=== PATIENT | female | born 1985 | race Caucasian/White ===

== ENCOUNTER 2017-12-03 18:22 | Emergency (ER) | payer MEDICAID ==
[~2017-12-03] VITALS: Ht 157.5 cm; Wt 84.8 kg
[~2017-12-03 18:22] MED LIST: ALBU0.084; CEPH-91
[2017-12-03] MEDS ORDERED: MORPHINE SULFATE 8mg/ml INJ SDV IV ONE (21:00)
[2017-12-03] MEDS ORDERED: ONDANSETRON HCL 4 MG/2 ML VIAL IV ONE (21:30)
[2017-12-03] MEDS ORDERED: ETOMIDATE (2MG/ML) 20ML VIAL IV ONE ×2 (22:44→23:45)
[2017-12-03 23:30] VITALS: BP 114/82
== END 2017-12-04 00:55 | disposition home or self-care (01) ==
LOC: ER 18:22
DX: S42.402A Unspecified fracture of lower end of left humerus, initial encounter for closed fracture (principal); S63.015A Dislocation of distal radioulnar joint of left wrist, initial encounter; J45.909 Unspecified asthma, uncomplicated; I10 Essential (primary) hypertension; Z88.5 Allergy status to narcotic agent; Z88.8 Allergy status to other drugs, medicaments and biological substances; Z79.2 Long term (current) use of antibiotics; Z79.899 Other long term (current) drug therapy; V00.121A Fall from non-in-line roller-skates, initial encounter; Y93.51 Activity, roller skating (inline) and skateboarding; Y99.8 Other external cause status; Y92.89 Other specified places as the place of occurrence of the external cause
CPT/HCPCS: 24600; 73070; 73080; 96374; 96375; 99285; J2270; J2405

== ENCOUNTER 2021-08-04 15:27 | Emergency (ER) | payer MEDICAID ==
[~2021-08-04] VITALS: Ht 157.5 cm; Wt 95.3 kg
[2021-08-04 16:59] VITALS: BP 116/71
== END 2021-08-04 18:19 | disposition home or self-care (01) ==
LOC: ER 15:27
DX: S62.001A Unspecified fracture of navicular [scaphoid] bone of right wrist, initial encounter for closed fracture (principal); S62.111A Displaced fracture of triquetrum [cuneiform] bone, right wrist, initial encounter for closed fracture; I10 Essential (primary) hypertension; J45.909 Unspecified asthma, uncomplicated; Z79.899 Other long term (current) drug therapy; Z88.5 Allergy status to narcotic agent; Z88.8 Allergy status to other drugs, medicaments and biological substances; W18.39XA Other fall on same level, initial encounter; Y93.89 Activity, other specified; Y92.89 Other specified places as the place of occurrence of the external cause; Y99.8 Other external cause status
CPT/HCPCS: 29125; 73110

== ENCOUNTER 2022-06-30 07:47 | Emergency (ER) | payer MEDICAID ==
[~2022-06-30] VITALS: Ht 157.5 cm; Wt 102.0 kg
[2022-06-30 08:46] VITALS: BP 100/75
[2022-06-30] MEDS ORDERED: IPRATROPIUM BROM 0.5 MG/2.5ML INH SOL NEB ONE (09:15)
[2022-06-30] MEDS ORDERED: ALBUTEROL SULF 2.5 MG/0.5ML(0.5%) NEB SOLN NEB ONE (09:15)
[2022-06-30] MEDS ORDERED: cefTRIAXone SOD 1,000 MG VL IM ONE (09:15)
[2022-06-30] MEDS ORDERED: methylPREDNISolone SOD SUCC 125 MG/2 ML VL IM ONE (09:15)
[2022-06-30] MEDS ORDERED: PRED20TA2 PO (09:55)
[2022-06-30] MEDS ORDERED: ALBU108A5 IN (09:55)
== END 2022-06-30 10:11 | disposition home or self-care (01) ==
LOC: ER 07:47
DX: J45.901 Unspecified asthma with (acute) exacerbation (principal); J02.9 Acute pharyngitis, unspecified; I10 Essential (primary) hypertension
CPT/HCPCS: 94640; 96372; 99284; J0696; J2930; J7644

== ENCOUNTER 2022-07-28 03:10 | Emergency (ER) | payer MEDICAID ==
[~2022-07-28] VITALS: Ht 157.5 cm; Wt 98.0 kg
[~2022-07-28 03:10] MED LIST changes: +ALBU108A5 IN; +PRED20TA2 PO
[2022-07-28] MEDS ORDERED: HYDROmorphone HCL 2 MG/ML VL/or syr IV ONE ×2 (05:15→08:15)
[2022-07-28] MEDS ORDERED: SODIUM CHLORIDE 0.9% 1,000 ML IV ONE (05:15)
[2022-07-28] MEDS ORDERED: ONDANSETRON HCL 4 MG/2 ML VIAL IV ONE (05:15)
[2022-07-28] MEDS ORDERED: HYDR-4798 PO (06:50)
[2022-07-28] MEDS ORDERED: ONDA-144 PO (06:50)
[2022-07-28 08:44] VITALS: BP 112/75
== END 2022-07-28 08:59 | disposition home or self-care (01) ==
LOC: EDUNIT# 03:10 → EDBD 03:10 → ER 03:10
DX: S42.301A Unspecified fracture of shaft of humerus, right arm, initial encounter for closed fracture (principal); Z88.5 Allergy status to narcotic agent; Z79.899 Other long term (current) drug therapy; Z98.890 Other specified postprocedural states; V89.2XXA Person injured in unspecified motor-vehicle accident, traffic, initial encounter; Y93.89 Activity, other specified; Y92.89 Other specified places as the place of occurrence of the external cause; Y99.8 Other external cause status
CPT/HCPCS: 29125; 70450; 71250; 72125; 73030; 73060; 74176; 96361; 96374; 96375; 96376; 99285; J1170; J2405; J7030

== ENCOUNTER 2024-05-28 15:03 | Emergency (ER) | payer MEDICAID ==
[~2024-05-28] VITALS: Ht 157.5 cm; Wt 85.0 kg
[~2024-05-28 15:03] MED LIST changes: +HYDR-4798 PO; +ONDA-144 PO
[2024-05-28 17:08] LABS: Urine Amorphous Crystal FEW /hpf (None Seen); Urine Bacteria MOD /hpf (None Seen); Urine Blood Negative /uL (Negative); Urine Clarity Clear (Clear); Urine Color Light-Yellow (Yellow); Urine Mucus FEW (None Seen); Urine Protein, UAD TRACE (Negative); Urine Specific Gravity 1.009 (1.001-1.035); Urine Urobilinogen Normal (Negative); Urine WBC 21 /hpf (0 - 5); Urine pH 6.5 (5.0-9.0)
[2024-05-28 17:24] LABS: Basophils # (auto) 0.1 10 ^3/uL (0-0.2); Basophils % (auto) 0.8 % (0.0-2.0); Eosinophils # (auto) 0.2 10 ^3/uL (0-0.8); Eosinophils % (auto) 2.1 % (0.0-7.0); Hematocrit 38.7 % (36.0-46.0); Hemoglobin 12.9 g/dL (12.2-16.2); Lymphocytes # (auto) 1.8 10 ^3/uL (0.4-5.4); Lymphocytes % (auto) 18.8 % (10.0-50.0); Mean Corpuscular Hemoglobin 25.3 pg (28.0-32.0); Mean Corpuscular Hgb Conc. 33.2 g/dL (32.0-36.0); Mean Corpuscular Volume 76.3 fL (80.0-100.0); Monocytes # (auto) 0.5 10 ^3/uL (0-1.3); Monocytes % (auto) 5.5 % (0.0-12.0); Neutrophils # (auto) 7.1 10 ^3/uL (1.6-8.6); Neutrophils % (auto) 72.8 % (37.0-80.0); Platelet Count (auto) 399 10^3/uL (140-450); Red Blood Cells 5.08 10^6/uL (4.0-5.20); Red Cell Distribution Width 16.8 % (11.8-14.3); White Blood Cell 9.8 10^3/uL (4.4-10.8)
[2024-05-28 17:46] LABS: Alanine Aminotransferase 14 U/L (7-40); Albumin 4.8 g/dL (3.2-4.8); Alkaline Phosphatase 158 U/L (46-116); Anion Gap 9 (5-15); Aspartate Aminotransferase 13 U/L (13-40); BUN/Creatinine Ratio 8.7 (10.0-20.0); Blood Urea Nitrogen 9 mg/dL (9-23); Calcium 10.7 mg/dL (8.7-10.4); Carbon Dioxide 28 mmol/L (20-31); Chloride 103 mmol/L (98-107); Glucose 97 mg/dL (74-106); Potassium 4.3 mmol/L (3.5-5.1); Sodium 140 mmol/L (136-145)
[2024-05-28 17:47] LABS: Bilirubin, Total 0.6 mg/dL (0.2-1.0)
[2024-05-28] MEDS: SODIUM CHLORIDE 0.9% 1,000 ML IV ONE (18:15)
[2024-05-28] MEDS: KETOROLAC TROMETH 30 MG/ML 1ML VIAL IV ONE (18:16)
[2024-05-28 18:23] VITALS: BP 106/80; PULSE 99; RESP 20; TEMP 97.9; O2SAT 96
[2024-05-28] MEDS ORDERED: NITR-87 PO (19:10)
[2024-05-28] MEDS: cefTRIAXone 1GM/50ML D5W 50 ML IV ONE (19:34)
== END 2024-05-28 19:53 | disposition home or self-care (01) ==
LOC: ER 15:03
DX: N39.0 Urinary tract infection, site not specified (principal); Z85.9 Personal history of malignant neoplasm, unspecified; Z88.5 Allergy status to narcotic agent; Z88.8 Allergy status to other drugs, medicaments and biological substances; Z79.899 Other long term (current) drug therapy; Z98.890 Other specified postprocedural states
CPT/HCPCS: 36415; 74176; 80053; 81001; 85025; 96361; 96374; 96375; 99285; J0696; J1885; J7030

== ENCOUNTER 2024-06-14 07:58 | Emergency (ER) | payer MEDICAID ==
[~2024-06-14] VITALS: Ht 157.5 cm; Wt 87.1 kg
[~2024-06-14 07:58] MED LIST changes: +NITR-87 PO
[2024-06-14 08:16] VITALS: TEMP 97.1
[2024-06-14 08:17] VITALS: BP 116/65; PULSE 91; RESP 16; O2SAT 98
[2024-06-14 09:20] LABS: Vaginal Bacteria Moderate
[2024-06-14 09:21] LABS: Vaginal Epithelial Cells Few
[2024-06-14 09:22] LABS: Vaginal Clue Cells Few
[2024-06-14 09:27] LABS: Vaginal Trichomonas Not Present
[2024-06-14 09:29] LABS: Urine Blood Negative /uL (Negative); Urine Clarity Clear (Clear); Urine Color Light-Yellow (Yellow); Urine Protein, UAD Negative (Negative); Urine Specific Gravity 1.006 (1.001-1.035); Urine Urobilinogen Normal (Negative); Urine pH 6.5 (5.0-9.0)
[2024-06-14 09:54] LABS: Urine WBC 20 /hpf (0 - 5)
[2024-06-14 09:55] LABS: Urine Bacteria MODERATE /hpf (None Seen)
[2024-06-14] MEDS ORDERED: BACDST PO (10:06)
[2024-06-14] MEDS ORDERED: METR-344 PO (10:06)
[2024-06-14] MEDS ORDERED: HYDR25SU21 PR (10:06)
== END 2024-06-14 10:15 | disposition home or self-care (01) ==
LOC: ER 07:58
DX: N39.0 Urinary tract infection, site not specified (principal); N76.0 Acute vaginitis; B96.89 Other specified bacterial agents as the cause of diseases classified elsewhere; Z88.5 Allergy status to narcotic agent; Z79.899 Other long term (current) drug therapy
CPT/HCPCS: 81001; 87086; 87210

== ENCOUNTER 2024-06-19 16:28 | Emergency (ER) | payer MEDICAID ==
[~2024-06-19] VITALS: Ht 157.5 cm; Wt 85.3 kg
[~2024-06-19 16:28] MED LIST changes: +BACDST PO; +HYDR25SU21 PR; +METR-344 PO
[2024-06-19 18:41] LABS: Basophils # (auto) 0.1 10 ^3/uL (0-0.2); Eosinophils # (auto) 0.4 10 ^3/uL (0-0.8); Hematocrit 34.9 % (36.0-46.0); Hemoglobin 11.5 g/dL (12.2-16.2); Lymphocytes # (auto) 1.6 10 ^3/uL (0.4-5.4); Lymphocytes % (auto) 15.7 % (10.0-50.0); Mean Corpuscular Hemoglobin 25.2 pg (28.0-32.0); Mean Corpuscular Volume 76.5 fL (80.0-100.0); Monocytes # (auto) 0.7 10 ^3/uL (0-1.3); Monocytes % (auto) 6.6 % (0.0-12.0); Neutrophils # (auto) 7.2 10 ^3/uL (1.6-8.6); Neutrophils % (auto) 72.7 % (37.0-80.0); Nucleated Red Blood Cells % 0.1 %; Platelet Count (auto) 388 10^3/uL (140-450); Red Blood Cells 4.57 10^6/uL (4.0-5.20); Red Cell Distribution Width 16.7 % (11.8-14.3); White Blood Cell 9.9 10^3/uL (4.4-10.8)
[2024-06-19 19:01] LABS: Urine Bacteria FEW /hpf (None Seen); Urine Blood Negative /uL (Negative); Urine Clarity Clear (Clear); Urine Color Light-Yellow (Yellow); Urine Protein, UAD Negative (Negative); Urine Specific Gravity 1.007 (1.001-1.035); Urine Urobilinogen Normal (Negative); Urine WBC 4 /hpf (0 - 5)
[2024-06-19 19:21] LABS: Albumin 4.4 g/dL (3.2-4.8); Alkaline Phosphatase 130 U/L (46-116); Anion Gap 8 (5-15); Aspartate Aminotransferase 17 U/L (13-40); BUN/Creatinine Ratio 6.6 (10.0-20.0); Bilirubin, Total 0.2 mg/dL (0.2-1.0); Blood Urea Nitrogen 7 mg/dL (9-23); Calcium 9.8 mg/dL (8.7-10.4); Carbon Dioxide 26 mmol/L (20-31); Chloride 102 mmol/L (98-107); Glucose 115 mg/dL (74-106); Potassium 3.7 mmol/L (3.5-5.1); Sodium 136 mmol/L (136-145)
[2024-06-19 19:22] LABS: Total Protein 7.6 g/dL (5.7-8.2)
[2024-06-19 19:28] LABS: Alanine Aminotransferase < 9 U/L (7-40)
[2024-06-19 20:00] VITALS: BP 111/65; PULSE 92; RESP 16; O2SAT 97
[2024-06-19 20:18] LABS: Lipase 36 U/L (12-53)
[2024-06-19] MEDS: IOHEXOL 300 MG/ML 100ML BOTTLE IJ ONE (20:35)
[2024-06-19] MEDS ORDERED: CEPH500C PO (22:16)
[2024-06-19 22:39] VITALS: PULSE 94; RESP 18; O2SAT 99
== END 2024-06-19 22:45 | disposition home or self-care (01) ==
LOC: ER 16:28
DX: N39.0 Urinary tract infection, site not specified (principal); R10.9 Unspecified abdominal pain; Z90.710 Acquired absence of both cervix and uterus; Z88.8 Allergy status to other drugs, medicaments and biological substances; Z79.899 Other long term (current) drug therapy
CPT/HCPCS: 36415; 74177; 80053; 81001; 83605; 83690; 84484; 85025; 99285; Q9967

== ENCOUNTER 2024-09-16 15:08 | Inpatient (IN) | payer MEDICAID ==
[~2024-09-16] VITALS: Ht 157.5 cm; Wt 87.4 kg
[2024-09-16] MEDS: PIPERACILLIN-TAZOB 3.375GM 100 ML IV ONE ×2 (03:00→18:37)
[~2024-09-16 15:08] MED LIST changes: +CEPH500C PO
[2024-09-16 15:31] VITALS: PULSE 115; RESP 14; O2SAT 98
[2024-09-16] MEDS: MORPHINE SULFATE 4 MG/ML SYR/VIAL IV ONE ×2 (15:45→19:36)
--- NOTE | 2024-09-16 16:25 | ED.PDOC ---
HPI Comments 39y F who presents to the ED via EMS for chief complaint of chest pain. Pt states she was at [facility] for UTI and sepsis and hospitalized and treated for ESBL.pt states she was also having chest pain and told staff but states she was ignored and left AMA 2 days. Pt states she has been having chest pain since for the past 2 days, constant, substernal, pressure, stabbing and sharp in nature, with associated exacerbation of pain with movement and no relieving factors. Pt states she has been having nausea, vomiting, and diarrhea, but otherwise denies any other symptoms. Pt states she has history of cervical cancer with mets to the liver and lymph nodes. Pt otherwise was noted to be short of breath and was placed on 4 L via nc and 02 sat will to 99% but in the ED, has noted heart rate of 117 with all other vitals in normal range. Pt in the ED, appears distressed. Pt otherwise denies any other symptoms at this time. Chief Complaint: chest pain Time Seen by MD: 16:23 Primary Care Provider: ABIMAEL Reviewed Notes: Nurses Notes, Cooler Conveyor Loader Notes Allergies: Coded Allergies: Acetaminophen (Verified Allergy, Mild, 07/28/22) Codeine (Verified Allergy, Mild, 07/28/22) Hydrocodone (Verified Allergy, Mild, 07/28/22) Pseudoephedrine (Verified Allergy, Unknown, 06/19/24) Home Meds Active Scripts Cephalexin Monohydrate (Cephalexin) 500 Mg Cap, 500 MG PO Q6HR for 7 Days, #28 CAP Prov:ERIN BARRIENTOS DO 06/19/24 Hydrocortisone Acetate (Anusol-Hc) 25 Mg Sup, 1 SUPP IN BID, #14 SUPP Prov:BERTHA AVINA 06/14/24 Sulfamethoxazole W/Trimethopri (Bactrim Ds Tablet) 1 Tab Tb, 1 TAB PO BID for 7 Days, #14 TAB Prov:BERTHA AVINA 06/14/24 Metronidazole (Flagyl) 500 Mg Tab, 1 TAB PO BID, #14 TAB Prov:BERTHA AVINA 06/14/24 Nitrofurantoin Monohydrate Mac (Macrobid) 100 Mg Cap, 100 MG PO BID for 7 Days, #14 CAP Prov:FELICIANO PULIDO 05/28/24 Ondansetron (Zofran) 4 Mg Tab, 1 TAB PO Q8HR PRN, #15 TAB 0 Refills Prov:SHARON ELKINS 07/28/22 Hydrocodone-Acetaminophen (Hydrocodone Bitartrate/AC 10-325 mg) 1 Tab Tab, 1 TAB PO Q4HP PRN, #15 TAB 0 Refills Prov:SHARON ELKINS 07/28/22 Prednisone (Prednisone) 20 Mg Tab, 60 MG PO DAILY, #15 MG Prov:BERTHA AVINA 06/30/22 Albuterol Sulfate (Albuterol Sulfate Hfa) 108 Mcg/Act Aer, 108 MCG IN QID, #90 AER Prov:BERTHA AVINA 06/30/22 Reported Medications Cephalexin (Keflex) 250 Mg Cap 04/05/11 Albuterol Sulfate (Albuterol Sulfate) 0.083 % Neb 10/23/10 Information Source: Patient Mode of Arrival: EMS Brought in by: EMS Past Medical History PAST MEDICAL HISTORY: Cancer, UTI'S 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 Family History Family History: Reviewed,noncontributory to illness Social History Smoker: Non-Smoker Alcohol: Occasionally Drugs: Denies Drug Use Lives In: Home Constitutional: denies: chills, diaphoresis, fatigue, fever, malaise, sweats, weakness, others EENTM: denies: blurred vision, double vision, ear bleeding, ear discharge, ear drainage, ear pain, ear ringing, eye pain, eye redness, hearing loss, mouth pain, mouth swelling, nasal discharge, nose bleeding, nose congestion, nose pain, photophobia, tearing, throat pain, throat swelling, voice changes, others Respiratory: reports: shortness of breath; denies: cough, hemoptysis, orthopnea, SOB at rest, SOB with excertion, stridor, wheezing, others Cardiovascular: reports: chest pain; denies: dizzy spells, diaphoresis, Dyspnea on exertion, edema, irregular heart beat, left arm pain, lightheadedness, palpitations, PND, syncope, others Gastrointestinal: denies: abdomen distended, abdominal pain, blood streaked bowels, constipated, diarrhea, dysphagia, difficulty swallowing, hematemesis, melena, nausea, poor appetite, poor fluid intake, rectal bleeding, rectal pain, vomiting, others Genitourinary: denies: abnormal vagina bleeding, burning, dyspareunia, dysuria, flank pain, frequency, hematuria, incontinence, pain, , vagina discharge, urgency, others Neurological: denies: dizziness, fainting, headache, left sided numbness, left sided weakness, numbness, paresthesia, pre-existing deficit, right sided numbness, right sided weakness, seizure, speech problems, tingling, tremors, weakness, others Musculoskeletal: denies: back pain, gout, joint pain, joint swelling, muscle pain, muscle stiffness, neck pain, others Integumetry: denies: bruises, change in color, change in hair/nails, dryness, laceration, lesions, lumps, rash, wounds, others Allergic/Immunocompromised: denies: Difficulty Healing, Frequent Infections, Hives, Itching, others Hematologic/Lymphatic: denies: anemia, blood clots, easy bleeding, easy bruising, swollen glands, others Endocrine: denies: excessive hunger, excessive sweating, excessive thirst, excessive urination, flushing, intolerance to cold, intolerance to heat, unexplained weight gain, unexplained weight loss, others Psychiatric: denies: anxiety, bipolar disorder, depression, hopeless, panic disorder, schizophrenia, sleepless, suicidal, others All Other Systems: Reviewed and Negative Physical Exam General Appearance: Moderate Distress, Normal HEENT: Normal ENT Inspection, Pharynx Normal, TMs Normal Neck: Full Range of Motion, Non-Tender, Normal, Normal Inspection Respiratory: No Accessory Muscle Use, Respiratory Distress Cardiovascular: Tachycardia Breast Exam: Deferred Gastrointestinal: No Organomegaly, Non Tender, No Pulsatile Mass, Normal Bowel Sounds, Soft Genitalia: Deferred Pelvic: Deferred Rectal: Deferred Extremities: No calf tenderness, Normal capillary refill, Normal inspection, Normal range of motion, Non-tender, No pedal edema Musculoskeletal : Apperance: Normal Neurologic: Alert, foamite mixer II-XII nml as Tested, No Motor Deficits, Normal Affect, Normal Mood, No Sensory Deficits Cerebellar Function: Normal Reflexes: Normal Skin: Dry, Normal Color, Warm Lymphatic: No Adenopathy Was a procedure done? Was a procedure done?: No CP Differential Dx Differential Diagnosis: A-fib, A-Flutter, Angina, Anxiety / Panic Attack, Atrial Dysrhythmia, Heart Failure, PVC's Differential Diagnosis: Angina, Chest Wall Pain, Costochondritis X-Ray, Labs, Meds, VS Vital Signs Date Time Temp Pulse Resp B/P (MAP) Pulse Ox O2 Delivery O2 Flow Rate FiO2 09/16/24 17:48 98 09/16/24 17:20 102 24 115/47 09/16/24 16:50 115 14 93/55 09/16/24 15:31 98.3 115 14 93/55 (68) 99 98.3 09/16/24 15:31 115 14 98 Nasal Cannula* 4 36 09/16/24 15:14 122 09/16/24 15:10 98.2 114 15 106/67 (80) 98 Lab Test 09/16/24 16:12 Range/Units White Blood Count 23.0 H 4.4-10.8 10^3/uL Red Blood Count 3.78 L 4.0-5.20 10^6/uL Hemoglobin 8.1 L 12.2-16.2 g/dL Hematocrit 26.4 L 36.0-46.0 % Mean Corpuscular Volume 69.9 L 80.0-100.0 fL Mean Corpuscular Hemoglobin 21.3 L 28.0-32.0 pg Mean Corpuscular Hemoglobin Concent 30.5 L 32.0-36.0 g/dL Red Cell Distribution Width 19.3 H 11.8-14.3 % Platelet Count 720 H 140-450 10^3/uL Mean Platelet Volume 7.6 6.9-10.8 fL Neutrophils (%) (Auto) 87.9 H 37.0-80.0 % Lymphocytes (%) (Auto) 5.1 L 10.0-50.0 % Monocytes (%) (Auto) 6.4 0.0-12.0 % Eosinophils (%) (Auto) 0.2 0.0-7.0 % Basophils (%) (Auto) 0.4 0.0-2.0 % Neutrophils # (Auto) 20.2 H 1.6-8.6 10 ^3/uL Lymphocytes # (Auto) 1.2 0.4-5.4 10 ^3/uL Monocytes # (Auto) 1.5 H 0-1.3 10 ^3/uL Eosinophils # (Auto) 0 0-0.8 10 ^3/uL Basophils # (Auto) 0.1 0-0.2 10 ^3/uL Nucleated Red Blood Cells 0.0 % Prothrombin Time 13.2 H 9.3-11.8 sec Prothrombin Time INR 1.28 H 0.9-1.15 D-Dimer, Quantitative 2.07 H 0.0-0.49 mg/L FEU Sodium Level 134 L 136-145 mmol/L Potassium Level 4.5 3.5-5.1 mmol/L Chloride Level 94 L 98-107 mmol/L Carbon Dioxide Level 30 20-31 mmol/L Anion Gap 10 5-15 Blood Urea Nitrogen 7 L 9-23 mg/dL Creatinine 0.45 L 0.550-1.02 mg/dL Glomerular Filtration Rate Calc 127 >90 mL/min BUN/Creatinine Ratio 15.6 10.0-20.0 Serum Glucose 112 H 74-106 mg/dL Calcium Level 9.3 8.7-10.4 mg/dL Magnesium Level 1.9 1.6-2.6 mg/dL Total Bilirubin 0.6 0.2-1.0 mg/dL Aspartate Amino Transferase (AST) 71 H 13-40 U/L Alanine Aminotransferase (ALT) 31 7-40 U/L Alkaline Phosphatase 356 H 46-116 U/L Troponin I High Sensitivity < 3 L </=34 ng/L B-Type Natriuretic Peptide 33.79 0-100 pg/mL Total Protein 5.9 5.7-8.2 g/dL Albumin 3.1 L 3.2-4.8 g/dL Current Medications Medications (Trade) Dose Ordered Sig/Cathy Route Start Time Stop Time Status Last Admin Sodium Chloride 1,000 ml @ 1,000 mls/hr Q1H ONCE IV 09/16/24 15:45 09/16/24 16:44 DC 09/16/24 16:50 Morphine Sulfate 4 mg ONCE ONCE IV 09/16/24 15:45 09/16/24 15:48 DC 09/16/24 16:50 Ondansetron HCl (Zofran) 4 mg ONCE ONCE IV 09/16/24 15:45 09/16/24 15:48 DC 09/16/24 16:47 Time of 1ST Reevaluation: 17:00 Reevaluation 1ST: Unchanged Patient Education/Counseling: Diagnosis, Treatment Family Education/Counseling: No Family Present Sepsis Sepsis Reasesment Focused Exam Sepsis focused exam: focus exam completed, time: (9960) Departure 1 Departure Time of Disposition: 18:29 Impression: Primary Impression: Pneumonia Additional Impressions: UTI (urinary tract infection) Metastasis from cervical cancer Disposition: ADMITTED INPATIENT Admit to: Med Surg Condition: Guarded Discharged With: Self Critical Care Note Critical Care Time?: Yes (45 min-critical care time only) Critical care comment: Total critical care time: Approximately 36 minutes Due to a high probability of clinically significant, life threatening deterioration, the patient required my highest level of preparedness to intervene emergently and I personally spent this critical care time directly and personally managing the patient. This critical care time included obtaining a history; examining the patient; pulse oximetry; ordering and review of studies; arranging urgent treatment with development of a management plan; evaluation of patient's response to treatment; frequent reassessment; and, discussions with other providers. This critical care time was performed to assess and manage the high probability of imminent, life-threatening deterioration that could result in multi-organ failure. It was exclusive of separately billable procedures and treating other patients. Stability Stability form required: No Heart Score Heart Score: Heart Score Response (Comments) Value History Slightly Suspicious 0 EKG Repolarization Disturb 1 Age <45 0 Risk Factors No known risk factors 0 Troponin Normal limit 0 Total 1 I personally scribed for KATARZYNA SORENSEN MD ([email or web address]) on 09/16/24 at 16:25. Electronically submitted by Jorge RUBIO). KATARZYNA SORENSEN MD Sep 16, 2024 16:25
[2024-09-16 16:27] LABS: Basophils # (auto) 0.1 10 ^3/uL (0-0.2); Basophils % (auto) 0.4 % (0.0-2.0); Eosinophils # (auto) 0 10 ^3/uL (0-0.8); Eosinophils % (auto) 0.2 % (0.0-7.0); Hematocrit 26.4 % (36.0-46.0); Hemoglobin 8.1 g/dL (12.2-16.2); Lymphocytes # (auto) 1.2 10 ^3/uL (0.4-5.4); Lymphocytes % (auto) 5.1 % (10.0-50.0); Mean Corpuscular Hemoglobin 21.3 pg (28.0-32.0); Mean Corpuscular Hgb Conc. 30.5 g/dL (32.0-36.0); Mean Corpuscular Volume 69.9 fL (80.0-100.0); Monocytes # (auto) 1.5 10 ^3/uL (0-1.3); Monocytes % (auto) 6.4 % (0.0-12.0); Neutrophils # (auto) 20.2 10 ^3/uL (1.6-8.6); Neutrophils % (auto) 87.9 % (37.0-80.0); Platelet Count (auto) 720 10^3/uL (140-450); Red Blood Cells 3.78 10^6/uL (4.0-5.20); Red Cell Distribution Width 19.3 % (11.8-14.3)
[2024-09-16 16:44] LABS: Alanine Aminotransferase 31 U/L (7-40); Anion Gap 10 (5-15); BUN/Creatinine Ratio 15.6 (10.0-20.0); Calcium 9.3 mg/dL (8.7-10.4); Carbon Dioxide 30 mmol/L (20-31); Magnesium 1.9 mg/dL (1.6-2.6); Potassium 4.5 mmol/L (3.5-5.1)
[2024-09-16 16:45] LABS: Bilirubin, Total 0.6 mg/dL (0.2-1.0); Total Protein 5.9 g/dL (5.7-8.2)
[2024-09-16] MEDS: ONDANSETRON HCL 4 MG/2 ML VIAL IV ONE ×2 (16:47→19:35)
[2024-09-16] MEDS: SODIUM CHLORIDE 0.9% 1,000 ML IV ONE (16:50)
[2024-09-16 16:51] LABS: Albumin 3.1 g/dL (3.2-4.8); Alkaline Phosphatase 356 U/L (46-116); Aspartate Aminotransferase 71 U/L (13-40); Blood Urea Nitrogen 7 mg/dL (9-23); Chloride 94 mmol/L (98-107); Glucose 112 mg/dL (74-106); Sodium 134 mmol/L (136-145)
[2024-09-16 17:04] LABS: INR 1.28 (0.9-1.15); Prothrombin Time 13.2 sec (9.3-11.8)
[2024-09-16] MEDS: IOHEXOL 350 MG/ML 100ML IJ ONE (17:12)
--- NOTE | 2024-09-16 17:15 | ECG ---
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
--- NOTE | 2024-09-16 17:23 | DVH ---
EXAM: XR Chest, 1 View CLINICAL INDICATION: chest pain TECHNIQUE: Frontal view of the chest. COMPARISON: RHUM on DOS: 07/28/22 FINDINGS: LUNGS AND PLEURAL SPACES: Unremarkable. No consolidation. No pneumothorax. HEART: Unremarkable. No cardiomegaly. MEDIASTINUM: Unremarkable. Normal mediastinal contour. BONES/JOINTS: Unremarkable. No acute fracture. OTHER FINDINGS: . . IMPRESSION: No acute cardiopulmonary process.
--- NOTE | 2024-09-16 17:47 | DVH ---
EXAM: CT CT ANGIO CHEST CONTRAST History: chest pain / SOB history of metastatic uterine / ovarian CA Comparison Study: None available TECHNIQUE: A digital photocomposing machine operator image was obtained. During the uneventful, intravenous administration of c ontrast material, multislice data acquisition was obtained through the chest. 3-D postprocessing is performed by technologist including MIP imaging Radiation Dose : CTDI vol 13.88 mGy, DLP 484.33 mGy*cm. Findings: Lungs: Numerous pulmonary nodules throughout both lungs, measuring up to 0.7 cm in the superior right lower lobe. Not seen on 07/28/2022. Pleura: Trace bilateral pleural effusions. Heart/Great vessels: The visualized heart is unremarkable. No cardiomegaly or pericardial effusion. N o pulmonary embolism, aneurysm, or dissection. Mediastinum: Bilateral prominent hilar nodes. Soft tissues/Bones: Mild multilevel degenerative changes of the thoracic spine. The partially visualized upper abdomen is within normal limits. Impression: 1. No evidence of pulmonary embolism, aortic aneurysm, or dissection. 2. Numerous bilateral pulmonary nodules, new from 07/28/2022, consistent with history of metastatic di sease. 3. Bilateral prominent hilar nodes nonspecific may be reactive versus metastatic.
[2024-09-16 20:14] VITALS: PULSE 96; RESP 17; O2SAT 98
--- NOTE | 2024-09-16 21:51 | DVHHPRES ---
History of Present Illness Resident Creating Document: MITCHELL HOOD RESDIENT History of Present Illness This is a 39-year-old female with past medical history of asthma, cervical cancer (status post surgery in 2022 with hysterectomy and removal of urinary bladder), idiopathic intracranial hypertension, uses oxygen for told sleep apnea since 5 months (but has not performed sleep study) came to the hospital due to chest pain. The patient had admitted at [facility] 1 week back due to palpitation and during admission it was found that she had ESBL UTI and was treated for with antibiotic for 5 days, but the patient left AMA the hospital since she had chest pain and shortness of bed but she was not properly taken care for the mentioned problems. She has centralized epigastric and centralized chest pain which radiated to right upper quadrant. Pain is constant, pressure- like, stabbing in nature, increased with mobility and taking deep breaths and relieves with pain killer. She also reports palpitation, shortness of breath, fever, occasional nausea and vomiting, generalized weakness and dizziness. Patient denies diarrhea, dysuria, visual deficits, or any recent sensory or motor deficits. PMHx: Asthma, cervical cancer (status post surgery in 2022 with hysterectomy and removal of urinary bladder), idiopathic intracranial hypertension and uses oxygen for told sleep apnea since 5 months (but has not performed sleep study) PSHx: Cervical cancer surgery (status post hysterectomy and urine bladder removal) Social history: Patient lives with family at home, Former smoker, former amphetamine user, former alcohol abuser, denies current drug use Home medication: Iron pill and vitamin supplements Allergic history: Reviewed. Review of Systems Review of Systems General: Reports generalized weakness and dizziness HEENT: No headaches, visiual changes, hearing loss, tinnitus, nasal congestion and discharge, and sore throat. Cardiovascular: Reports chest pain and palpitation Respiratory: Reports cough and shortness of breaths Gastrointestinal: Reports occasional nausea Genitourinary: No dysuria, hematuria, discharge, frequency, urgency, nocturia, incontinence, and urinary retention. Endocrine: No heat or cold intolerance, polydipsia, polyuria, and polyphagia. Neurological: No dizziness, extremity weakness and numbness, tremors, gait disturbance, seizures, and memory impairment. Psychiatric: Denies depression, anxiety,or insomnia. Musculoskeletal: Denies neck pain, stiffness and swelling, back pain, muscle weakness, joint pain, stiffness, swelling, or limited range of motion. Skin: No rashes, itching, skin lesion, changes in hair, nail, skin texture and breast. Hematologic/Lymphatic: Denies easy bruising, bleeding tendencies, or lymph node enlargement. Allergies: Coded Allergies: Pseudoephedrine (Verified Allergy, Unknown, 06/19/24) Exam Vital Signs Vital Signs Date Time Temp Pulse Resp B/P (MAP) Pulse Ox O2 Delivery O2 Flow Rate FiO2 09/16/24 20:14 96 17 98 Nasal Cannula* 4 36 09/16/24 20:06 100/59 09/16/24 19:30 98.9 98.9 Exam General Appearance: Alert, Oriented X3, Cooperative, No acute distress HEENT: Atraumatic, PERRLA, EOMI, Mucous membrane moist/pink Respiratory: Bilateral rhonchi Cardiovascular: Regular rate, Normal S1, Normal S2, No murmurs, no chest wall tenderness Abdominal: Epigastric tenderness Extremities: No clubbing, No cyanosis, No edema, Normal pulses, No tender ness/swelling Skin: No rashes, No breakdown, No significant lesion Neuro: Normal gait, Normal speech, Strength at 5/5 X4 ext, Normal tone, Sensation intact, Cranial nerves 3-12 NL, Reflexes 2+ Psych/Mental Status: Mental status NL, Mood NL Labs/Xrays Labs Test 09/16/24 19:11 09/16/24 18:33 09/16/24 16:12 Range/Units Lactic Acid Level 1.5 0.4-2.0 mmol/L Troponin I High Sensitivity < 3 L </=34 ng/L White Blood Count 23.0 H 4.4-10.8 10^3/uL Red Blood Count 3.78 L 4.0-5.20 10^6/uL Hemoglobin 8.1 L 12.2-16.2 g/dL Hematocrit 26.4 L 36.0-46.0 % Mean Corpuscular Volume 69.9 L 80.0-100.0 fL Mean Corpuscular Hemoglobin 21.3 L 28.0-32.0 pg Mean Corpuscular Hemoglobin Concent 30.5 L 32.0-36.0 g/dL Red Cell Distribution Width 19.3 H 11.8-14.3 % Platelet Count 720 H 140-450 10^3/uL Mean Platelet Volume 7.6 6.9-10.8 fL Neutrophils (%) (Auto) 87.9 H 37.0-80.0 % Lymphocytes (%) (Auto) 5.1 L 10.0-50.0 % Monocytes (%) (Auto) 6.4 0.0-12.0 % Eosinophils (%) (Auto) 0.2 0.0-7.0 % Basophils (%) (Auto) 0.4 0.0-2.0 % Neutrophils # (Auto) 20.2 H 1.6-8.6 10 ^3/uL Lymphocytes # (Auto) 1.2 0.4-5.4 10 ^3/uL Monocytes # (Auto) 1.5 H 0-1.3 10 ^3/uL Eosinophils # (Auto) 0 0-0.8 10 ^3/uL Basophils # (Auto) 0.1 0-0.2 10 ^3/uL Nucleated Red Blood Cells 0.0 % Prothrombin Time 13.2 H 9.3-11.8 sec Prothrombin Time INR 1.28 H 0.9-1.15 D-Dimer, Quantitative 2.07 H 0.0-0.49 mg/L FEU Sodium Level 134 L 136-145 mmol/L Potassium Level 4.5 3.5-5.1 mmol/L Chloride Level 94 L 98-107 mmol/L Carbon Dioxide Level 30 20-31 mmol/L Anion Gap 10 5-15 Blood Urea Nitrogen 7 L 9-23 mg/dL Creatinine 0.45 L 0.550-1.02 mg/dL Glomerular Filtration Rate Calc 127 >90 mL/min BUN/Creatinine Ratio 15.6 10.0-20.0 Serum Glucose 112 H 74-106 mg/dL Calcium Level 9.3 8.7-10.4 mg/dL Magnesium Level 1.9 1.6-2.6 mg/dL Total Bilirubin 0.6 0.2-1.0 mg/dL Aspartate Amino Transferase (AST) 71 H 13-40 U/L Alanine Aminotransferase (ALT) 31 7-40 U/L Alkaline Phosphatase 356 H 46-116 U/L B-Type Natriuretic Peptide 33.79 0-100 pg/mL Total Protein 5.9 5.7-8.2 g/dL Albumin 3.1 L 3.2-4.8 g/dL Assessment/Plan Assessment/Plan Acute hypoxic respiratory failure, likely due to pneumonia/asthma exacerbation /lung metastasis Sepsis, likely due to pneumonia Pneumonia, likely due to Gram-positive Gram-negative bacteria/viral Asthma exacerbation Chest x-ray shows reticulonodular infiltration CT angio shows bilateral numerous pulmonary nodule, maybe metastatic nodule Empiric antibiotics of Zosyn and doxycycline IV fluid Breathing treatment Methylprednisolone 40 mg daily History of cervical cancer, status post surgery Chest CT scan shows bilateral numerous pulmonary nodule, possible metastasis Abdominal CT scan shows, diffuse heterogeneity throughout the liver which may reflect metastatic disease, recommended IV contrast study Oncology consultation Ruled out pulmonary emboli D-dimer is raised at 20.7 CT angiogram shows no pulmonary emboli, and bilateral lower Doppler studies are normal Thrombocytosis, likely reactive Monitoring Moderate protein malnutrition Albumin is 3.1 Malnutrition consultation Mild hyponatremia, monitoring Transaminitis DIET: Cardiac diet DVT PROPHYLAXIS: Lovenox CODE STATUS: Goal of care discussed for more than 21 minutes, full code DISPOSITION: Telemetry Patient's status and paln discussed with the patient and the patient's sister on the phone. Case discussed with Dr. Rojas Plan discussed with: Patient, Other (RN) My Orders Orders - MITCHELL HOOD RESDIALTON Procedure Category Date Status Time Admit ADMIT 09/16/24 Verified 21:49 Nitroglycerin PHA 09/16/24 Verified Sublingual (Ntrostat 22:00 Oxygen By Nasal RT 09/16/24 Verified Cannula 21:49 Stat Ekg For Chest CHRISTEN 09/16/24 Verified Pain 21:49 Notify Of Changes CHRISTEN 09/16/24 Verified From Base 21:49 Mechanical Engineering Teacher For CHRISTEN 09/16/24 Verified 24 Hours 21:49 Morphine Sulfate PHA 09/16/24 Verified Injection 22:00 Date of Service: Sep 16, 2024 Billing Provider: JANY EASTON MD Common Visit Codes: [id number] INP/OBS CARE (HIGH) MITCHELL HOOD RESDIALTON Sep 16, 2024 21:51 JANY EASTON MD Sep 17, 2024 09:38
[2024-09-16] MEDS ORDERED: NITROGLYCERIN 0.4 MG SL TAB SL PRN (22:00)
[2024-09-16] MEDS ORDERED: MORPHINE SULFATE INJ 2 MG/ml SYRG IV PRN (22:00)
[2024-09-16] MEDS: HYDROcodone-ACET 5/325MG TAB PO PRN (22:48)
[2024-09-16] MEDS: DOXYCYCLINE 100MG/100ML 100 ML IV ONE (22:53)
[2024-09-16 22:56] LABS: Beta HCG, Quantitative 2.3 mIU/mL (1.5-4.2)
[2024-09-16 23:00] LABS: Thyroid Stimulating Hormone 2.34 uIU/mL (0.55-4.78)
--- NOTE | 2024-09-16 23:38 | DVH ---
Exam: CT CT AB PEL WO CON-NO ORAL OR IV History: Hepatic metastasis Comparison Study: CT CT AB PEL WO CON-NO ORAL OR IV on DOS: 05/28/24 Technique: Multidetector spiral CT of the abdomen was performed from lung bases to pubic symphysis. Imaging was performed without IV contrast. Axial, coronal and sagittal multiplanar reformats were ob tained from the axial data set by the technologist. Radiation Dose : 1. Abdomen/Pelvis: CTDIvol 21 mGy, DLP 1211.45 mGy*cm. Findings: Evaluation of solid organs is limited due to lack of intravenous contrast use. Lung Bases: Please refer to separately dictated CT from today. Liver: Diffuse heterogeneity throughout the liver. Metastatic disease can not be excluded Gallbladder and Biliary Tree: Unremarkable Spleen: Unremarkable Pancreas: The pancreas is grossly normal in appearance. Adrenal Glands: Unremarkable Kidneys: Kidneys are grossly normal without calculi or hydronephrosis. Ileal conduit is seen in the r ight lower quadrant. Bladder: Right lower quadrant ileal conduit is seen. Status post cystectomy Bowel: The stomach is grossly normal in appearance. Small bowel and colon are normal in caliber and d istribution. The appendix is not visualized; however, no secondary findings of acute appendicitis id entified. Ascites: Absent Lymphadenopathy: No mesenteric, retroperitoneal or periportal lymphadenopathy. Abdominal Wall and Mesentery: Ileal conduit is seen in the right lower quadrant. Extensive nodularity in the lower pelvis with associated fat stranding, possibly related to metastatic disease with super imposed infectious inflammatory process. Vasculature: The visualized abdominal aorta is normal in size and caliber. Evaluation of abdominal a nd pelvic vessels is limited due to lack of intravenous contrast. Pelvic Organs: Unremarkable Musculoskeletal: No aggressive focal bony lesions, acute fractures or dislocation. IMPRESSION: 1. Diffuse heterogeneity throughout the liver which may reflect metastatic disease, although evaluati on is extremely limited without IV contrast. 2. Extensive nodularity in the lower pelvis with associated fat stranding, possibly related to metast atic disease with superimposed infectious / inflammatory process. Again, evaluation is extremely limi bradford in the absence of IV contrast 3. Status post cystectomy with ileal conduit formation in the right lower quadrant. Radiation optimization: All CT scans at this facility use at least one of these dose optimization katelynn hniques: automated exposure control mA and/or kV adjustment per patient size (includes targeted exam s where dose is matched to clinical indication) or iterative reconstruction.
--- NOTE | 2024-09-16 23:39 | DVH ---
Bilateral lower extremity venous duplex Clinical History: raised d dimer Comparison: None Technique: Duplex Doppler evaluation of the deep venous systems of both lower extremities from the common femora l veins to the popliteal veins including color Doppler and spectral/pulsed waveform analysis was perf ormed. Findings: RIGHT SIDE: The common femoral vein demonstrates appropriate compressibility and waveform variability. There is compressibility/patency of the great saphenous vein at the proximal thigh. The femoral vein demonstrates appropriate compressibility and waveform variability. The deep femoral vein demonstrates appropriate compressibility and waveform variability. The popliteal vein demonstrates appropriate compressibility and waveform variability. There is normal compressibility at the tibioperoneal trunk. LEFT SIDE: The common femoral vein demonstrates appropriate compressibility and waveform variability. There is compressibility/patency of the great saphenous vein at the proximal thigh. The femoral vein demonstrates appropriate compressibility and waveform variability. The deep femoral vein demonstrates appropriate compressibility and waveform variability. The popliteal vein demonstrates appropriate compressibility and waveform variability. There is normal compressibility at the tibioperoneal trunk. Impression: 1. No right or left femoropopliteal venous thrombosis.
[2024-09-16 23:47] LABS: COVID19 ANTIGEN SOFIA FIA NEGATIVE (NEGATIVE); Rapid Influenza A Negative (Negative); Rapid Influenza B Negative (Negative)
[2024-09-16 23:50] VITALS: PULSE 120; RESP 16; O2SAT 97
[2024-09-16 23:56] VITALS: PULSE 123; RESP 18; O2SAT 97
[2024-09-16] MEDS: ALBUTEROL SULF 2.5 MG/0.5ML(0.5%) NEB SOLN NEB SCH (23:58)
[2024-09-17] VITALS (20 sets, daily range): BP systolic 89–107; BP diastolic 42–72; PULSE 79–130; RESP 13–22; TEMP 97.5–99.2; O2SAT 93–100
[2024-09-17] MEDS: ENOXAPARIN SOD 40 MG/0.4 ML SYRINGE SC ONE ×2 (00:15→02:45)
[2024-09-17] MEDS: SODIUM CHLORIDE 0.9% 500 ML IV ONE (01:31)
[2024-09-17] MEDS: SODIUM CHLORIDE 0.9% 1,000 ML IV ONE (01:32)
[2024-09-17] MEDS: MORPHINE SULFATE INJ 2 MG/ml SYRG IV PRN (02:10)
[2024-09-17] MEDS: methylPREDNISolone SOD SUCC 40 MG/ML VL IV ONE (03:55)
[2024-09-17] MEDS: IPRATROPIUM BROM 0.5 MG/2.5ML INH SOL NEB SCH (06:50)
[2024-09-17 07:12] LABS: Hematocrit 23.1 % (36.0-46.0); Mean Corpuscular Hemoglobin 21.4 pg (28.0-32.0); Mean Corpuscular Volume 71.5 fL (80.0-100.0); Platelet Count (auto) 584 10^3/uL (140-450); Red Blood Cells 3.23 10^6/uL (4.0-5.20); Red Cell Distribution Width 19.8 % (11.8-14.3); White Blood Cell 23.7 10^3/uL (4.4-10.8)
[2024-09-17 07:16] LABS: Alanine Aminotransferase 23 U/L (7-40); Anion Gap 8 (5-15); BUN/Creatinine Ratio 9.8 (10.0-20.0); Bilirubin, Total 0.7 mg/dL (0.2-1.0); Carbon Dioxide 28 mmol/L (20-31); Potassium 4.2 mmol/L (3.5-5.1); Total Protein 5.9 g/dL (5.7-8.2)
[2024-09-17 07:17] LABS: Albumin 3.2 g/dL (3.2-4.8); Alkaline Phosphatase 304 U/L (46-116); Aspartate Aminotransferase 59 U/L (13-40); Blood Urea Nitrogen 6 mg/dL (9-23); Calcium 8.6 mg/dL (8.7-10.4); Chloride 96 mmol/L (98-107); Glucose 125 mg/dL (74-106); Sodium 132 mmol/L (136-145)
[2024-09-17 07:43] LABS: Basophils % (manual) 0 (0.0-2.0); Blast Cells 0; Eosinophils % (manual) 0 (0-7); Hemoglobin 6.9 g/dL (12.2-16.2); Metamyelocytes % 0; Myelocytes % 0; Promyelocytes % 0; Reactive Lymphocytes 0
[2024-09-17] MEDS: DOXYCYCLINE 100MG/100ML 100 ML IV SCH (08:55)
[2024-09-17] MEDS: PANTOPRAZOLE 40 MG/10 ML VIAL INJ IV SCH (08:55)
[2024-09-17 10:04] LABS: Band Neutrophils % (manual) 14; Lymphocytes % (manual) 4 (10.0-50.0); Monocytes % (manual) 2 (0-12)
[2024-09-17 10:05] LABS: Hypochromia Moderate; Platelet Estimate Increased
[2024-09-17] MEDS: PIPERACILLIN-TAZOB 3.375GM 100 ML IV SCH (11:06)
--- NOTE | 2024-09-17 15:50 | DVHPNRES ---
Progress Note Date Seen: Sep 17, 2024 Resident Creating Document: JAY VALENZUELA RESIDENT Medical Necessity Reason Pt with a Central, PICC or Fol: No Subjective Review of Systems This is a 39-year-old female with past medical history of asthma, cervical cancer (status post surgery in 2022 with hysterectomy and removal of urinary bladder), idiopathic intracranial hypertension, 4 L due to the hospital with the chest pain and shortness of breath for last 4 days prior to this admission. The patient had admitted at [facility] 1 week back due to palpitation and during admission it was found that she had ESBL UTI and was treated for with antibiotic for 5 days, but the patient left AMA. Chest Pain is constant, pressure-like, stabbing in nature, increased with mobility and taking deep breaths and relieves with pain killer. She also reports palpitation, shortness of breath, fever, occasional nausea and vomiting, generalized weakness and dizziness. Patient was seen and examined on the bedside. She is alert oriented x3. Mentioned improved shortness of breath after breathing treatment and complains of mild epigastric pain, generalised weakness. No other active complaint. Constitutional: Weakness, malaise, No: Fever, Chills, Sweats, Other Eyes: No: Pain, Vision change, Conjunctivae inflammation, Eyelid inflammation, Other, Redness ENT: No: Ear pain, Ear discharge, Nose pain, Nose discharge, Nose congestion, Mouth pain, Mouth swelling, Throat pain, Throat swelling, Other Respiratory: Shortness of breath, improving Cough, No Dry,Wheezing, Hemoptysis, Pleuritic Pain, Sputum, Wheezing, Other Cardiovascular: No: Chest Pain, Palpitations, Orthopnea, Paroxysmal Noc. Dyspnea, Edema, Lt Headedness, Other Gastrointestinal: Nausea, No Vomiting, Abdominal Pain, Diarrhea, Constipation, Melena, Hematochezia, Other Musculoskeletal: No: other, neck pain, shoulder pain, arm pain, back pain, hand pain, leg pain, foot pain Neurological:; No: Weakness, Numbness, Incoordination, Change in speech, Confusion, Seizures Objective vital signs Vital Sign Date Time Temp Pulse Resp B/P (MAP) Pulse Ox O2 Delivery O2 Flow Rate FiO2 09/17/24 15:10 97.5 86 18 91/52 97.5 09/17/24 13:00 99 09/17/24 10:00 Nasal Cannula 4.0 09/17/24 10:00 36 Total Intake and Output 09/16/24 09/16/24 09/17/24 15:00 23:00 07:00 Intake Total 1000 ml 950 ml Output Total 850 ml Balance 1000 ml 100 ml medications Current Medications Medications Dose Ordered Sig/Cathy Route Start Time Stop Time Status Last Admin Dose Admin Nitroglycerin 0.4 mg Q5MINP PRN SL 09/16/24 22:00 Morphine Sulfate 2 mg Q30M PRN IV 09/16/24 22:00 Piperacillin Sod/ Tazobactam Sod 100 ml @ 25 mls/hr Q8H IV 09/17/24 11:00 09/17/24 11:06 25 MLS/HR Doxycycline Hyclate 100 ml @ 50 mls/hr Q12H IV 09/17/24 09:00 09/17/24 08:55 50 MLS/HR Albuterol 2.5 mg Q6HR NEB 09/17/24 00:00 09/17/24 12:10 2.5 MG Ipratropium [place] 0.5 mg Q6HWA NEB 09/17/24 06:00 09/17/24 12:10 0.5 MG Acetaminophen/ Hydrocodone Bitart 1 tab Q4HPRN PRN PO 09/16/24 22:30 09/17/24 06:13 1 TAB Morphine Sulfate 1 mg Q4HP PRN IV 09/16/24 22:30 09/17/24 02:10 1 MG Methylprednisolone Sodium Succinate 40 mg DAILY IV 09/18/24 10:00 Enoxaparin Sodium 40 mg DAILY SC 09/18/24 10:00 Pantoprazole Sodium 40 mg DAILY IV 09/17/24 10:00 09/17/24 08:55 40 MG Examination Physical examination: General Appearance: Alert, Oriented X3, Cooperative, No acute distress HEENT: Atraumatic, PERRLA, EOMI, Mucous membrane moist/pink Respiratory: Bilateral ronchi and rales. Cardiovascular: Regular rate, Normal S1, Normal S2, No murmurs, no chest wall tenderness Abdominal: Normal bowel sounds, Soft, mild epigastric tenderness, No hepatospenomegaly, No masses Extremities: No clubbing, No cyanosis, No edema, Normal pulses, No tenderness/swelling Skin: No rashes, No breakdown, No significant lesion Neuro: Normal gait, Normal speech, Strength at 5/5 X4 ext, Normal tone, grossly intact cranial nerves. Psych/Mental Status: Mental status NL, Mood NL laboratory and microbiology Laboratory Tests 09/17/24 06:27 Test 09/17/24 06:27 Range/Units Serum Glucose 125 H 74-106 mg/dL Labs and/or images reviewed: Labs reviewed by me, Image(s) reviewed by me Problem List/Assessment/Plan Problem List/Assessment/Plan Assessment/Plan # Acute hypoxic respiratory failure likely secondary to gram positive/ gram negative pneumonia # Sepsis, likely due to pneumonia # Ruled out pulmonary emboli # Possible Asthma exacerbation - D-dimer was elevated - CT angio showed bilateral numerous pulmonary nodule, maybe metastatic nodule with bilateral prominent hilar nodes nonspecific may be reactive versus metastatic and ruled out pulmonary emboli - Bilateral lower Doppler studies are normal - Duoneb with albuterol and ipratropium Q6hr - IV methylprednisolone 40 mg daily. - IV Zosyn 3.375 mg Q8hr and IV doxycycline 100 mg b.i.d. - Covid/Flu/MRSA negative. - Pending blood c/s and sputum c/s. # Acute on chronic anaemia, rule out GI bleeding/ malignancy - H/H: 6.9/23.1 - 1 unit PRBC transfused - Protonix 40 mg IV daily - Ordered stool occult blood # History of cervical cancer, status post surgery # Transaminitis without hyperbilirubinemia likely secondary to malignancy - Chest CT scan showed bilateral numerous pulmonary nodule, possible metastasis - Abdominal CT scan demonstrated, diffuse heterogeneity throughout the liver which may reflect metastatic disease and extensive nodularity in the lower pelvis with associated fat stranding, possibly related to metastatic disease with superimposed infectious / inflammatory process. Recommended IV contrast study - Consulted oncology. - CEA is normal and pending CA 19-9, CA 125. # Thrombocytosis, likely reactive - Monitoring DIET: Cardiac diet DVT PROPHYLAXIS: Hold due to bleeding CODE STATUS: Goal of care discussed for more than 21 minutes, full code DISPOSITION: Telemetry Plan discussed with Dr. Rojas Plan discussed with: Patient, Other My Orders My Orders Orders - AJY VALENZUELA RESIDENT Procedure Category Date Status Time Pantoprazole PHA 09/17/24 In Process (Protonix) 10:00 Stool Occult Blood LAB 09/17/24 Uncollected 08:20 * Hematology/Oncology CONS 09/17/24 Transmitted Consult 11:10 Date of Service: Sep 17, 2024 Billing Provider: JANY EASTON MD Common Visit Codes: [id number] INP/OBS CARE(HIGH) NETTEEASTON KEARNEYJAY RESIDENT Sep 17, 2024 15:50 JANY EASTON MD Sep 24, 2024 23:43
--- NOTE | 2024-09-17 18:16 | MEDREC ---
[facility] Intervention Section I [facility] Intervention: Review courses of therapy (PLEASE CONSIDER SWITCHING ZOSYN TO MERROPENEM DUE TO RECENT HISTORY OF ESBL.) TIA WRIGHT PHARMACIST Sep 17, 2024 18:16
[2024-09-18] VITALS (19 sets, daily range): BP systolic 101–143; BP diastolic 42–75; PULSE 80–104; RESP 16–20; TEMP 97–98.6; O2SAT 84–100
[2024-09-18 06:50] LABS: Eosinophils # (auto) 0.1 10 ^3/uL (0-0.8); Hematocrit 26.8 % (36.0-46.0); Lymphocytes # (auto) 1.1 10 ^3/uL (0.4-5.4); Monocytes # (auto) 1.2 10 ^3/uL (0-1.3)
[2024-09-18 06:56] LABS: Basophils # (auto) 0.2 10 ^3/uL (0-0.2); Basophils % (auto) 0.8 % (0.0-2.0); Eosinophils % (auto) 0.4 % (0.0-7.0); Hemoglobin 8.1 g/dL (12.2-16.2); Mean Corpuscular Hemoglobin 22.5 pg (28.0-32.0); Mean Corpuscular Hgb Conc. 30.1 g/dL (32.0-36.0); Mean Corpuscular Volume 74.7 fL (80.0-100.0); Monocytes % (auto) 5.4 % (0.0-12.0); Neutrophils # (auto) 19.4 10 ^3/uL (1.6-8.6); Neutrophils % (auto) 88.4 % (37.0-80.0); Nucleated Red Blood Cells % 0.1 %; Platelet Count (auto) 573 10^3/uL (140-450); Red Blood Cells 3.59 10^6/uL (4.0-5.20); Red Cell Distribution Width 19.8 % (11.8-14.3)
[2024-09-18 07:02] LABS: Chloride 102 mmol/L (98-107); Potassium 3.6 mmol/L (3.5-5.1); Sodium 138 mmol/L (136-145)
[2024-09-18 07:03] LABS: Anion Gap 9 (5-15); Carbon Dioxide 27 mmol/L (20-31)
[2024-09-18 07:04] LABS: Calcium 9.1 mg/dL (8.7-10.4)
[2024-09-18 07:08] LABS: BUN/Creatinine Ratio 18.9 (10.0-20.0); Blood Urea Nitrogen 10 mg/dL (9-23); Glucose 102 mg/dL (74-106)
[2024-09-18] MEDS ORDERED: ENOXAPARIN SOD 40 MG/0.4 ML SYRINGE SC SCH ×2 (10:00)
[2024-09-18] MEDS: methylPREDNISolone SOD SUCC 40 MG/ML VL IV SCH (10:44)
[2024-09-18 12:01] LABS: Alanine Aminotransferase 27 U/L (7-40); Anion Gap 10 (5-15); BUN/Creatinine Ratio 19.2 (10.0-20.0); Bilirubin, Total 0.4 mg/dL (0.2-1.0); Blood Urea Nitrogen 10 mg/dL (9-23); Carbon Dioxide 25 mmol/L (20-31); Chloride 103 mmol/L (98-107); Glucose 99 mg/dL (74-106); Potassium 3.8 mmol/L (3.5-5.1); Sodium 138 mmol/L (136-145)
[2024-09-18 12:12] LABS: Albumin 2.9 g/dL (3.2-4.8); Alkaline Phosphatase 264 U/L (46-116); Aspartate Aminotransferase 68 U/L (13-40); Total Protein 5.7 g/dL (5.7-8.2)
[2024-09-18 14:38] LABS: Urine Bacteria None Seen /hpf (None Seen)
[2024-09-18 14:49] LABS: Urine Blood Negative /uL (Negative); Urine Clarity Turbid (Clear); Urine Mucus FEW (None Seen); Urine Protein, UAD Negative (Negative); Urine Specific Gravity 1.008 (1.001-1.035); Urine Squamous Epithelial Cell FEW /hpf (<5); Urine Urobilinogen Normal (Negative); Urine WBC 11 /HPF (0-5)
[2024-09-18 14:52] LABS: Urine Color STRAW (Yellow)
[2024-09-18 15:01] LABS: Opiate Scree,Urine Pos (NEGATIVE)
[2024-09-18 15:09] LABS: Amphetamine Screen, Urine Neg (NEGATIVE); Barbiturate Scree,Urine Neg (NEGATIVE); Benzodiazephine Screen, Urine Neg (NEGATIVE); Cannabinoid Screen, Urine Neg (NEGATIVE); Cocaine Screen, Urine Neg (NEGATIVE); Phencyclidine Screen, Urine Neg (NEGATIVE)
--- NOTE | 2024-09-18 15:46 | DVHSR ---
APPROVED REPORT EXAM: Two-dimensional and M-mode echocardiogram with Doppler, color Doppler and Bubble Study. Blood Pressure: 96/58 mmHg INDICATION Chest Pain RISK FACTORS Height: 5'2", Weight: 179 DIMENSIONS LVDd5.7 (3.8-5.7cm)LA (2D)4.2 (1.9-4.0cm)Aortic Root2.9 (2.0-3.7cm) LVDs3.8 (2.5-4.0cm)LA (MM) (1.9-4.0cm)Aortic Cusp Exc2.2 (1.5-2.0cm) EF (%) 63.0 (55-70%)Rt. Atrium3.4 (1.9-4.0cm)Asc. Aorta3.3 cm IVSd0.7 (0.7-1.1cm)RV (D)3.3 (1.8-2.4cm) PWd0.5 (0.7-1.1cm) Mitral Valve MitralMitral Stenosis E/A ratio0.02D MVAcm2 Aortic Valve Aortic ValveAortic Stenosis V10.96m/Francisco J Mean GR.3mmHg V21.14m/Francisco J Peak GR.5mmHg LVOT Diameter2.4 (1.8-2.4cm)Doppler AVA3.81cm2 Pulmonic Valve V20.93m/s Other Information Quality : Technically LimitedRhythm : Conclusion Undetermined rhythm. Left atrial enlargement with RV enlargement. Valves are normal. Aortic root enlargement. EF of 60% with normal RV function. Mild TR. Minute pericardial effusion not hemodynamically significant. No intracardiac masses thrombi or vegetations discernible.
[2024-09-18] MEDS: LACTULOSE 20Gm/30ML SOLN PO ONE (16:35)
[2024-09-18] MEDS: ERTAPENEM SOD INJ 1 GM in SODIUM CHL 0.9% 50 ML IV ONE (17:35)
--- NOTE | 2024-09-18 19:16 | DVHPNRES ---
Progress Note Date Seen: Sep 18, 2024 Resident Creating Document: JAY VALENZUELA RESIDENT Medical Necessity Reason Pt with a Central, PICC or Fol: No Subjective Review of Systems This is a 39-year-old female with past medical history of asthma, cervical cancer (status post surgery in 2022 with hysterectomy and removal of urinary bladder), idiopathic intracranial hypertension, 4 L due to the hospital with the chest pain and shortness of breath for last 4 days prior to this admission. The patient had admitted at [facility] 1 week back due to palpitation and during admission it was found that she had ESBL UTI and was treated for with antibiotic for 5 days, but the patient left AMA. Chest Pain is constant, pressure-like, stabbing in nature, increased with mobility and taking deep breaths and relieves with pain killer. She also reports palpitation, shortness of breath, fever, occasional nausea and vomiting, generalized weakness and dizziness. Patient was seen and examined on the bedside. She is alert oriented x3. Mentioned improved shortness of breath and chest pain and complains constipation. Objective vital signs Vital Sign Date Time Temp Pulse Resp B/P (MAP) Pulse Ox O2 Delivery O2 Flow Rate FiO2 09/18/24 17:00 98.0 92 20 123/75 (91) 94 98.0 09/18/24 11:26 Nasal Cannula 4.0 09/18/24 11:26 36 Total Intake and Output 09/17/24 09/17/24 09/18/24 15:00 23:00 07:00 Intake Total 200 ml 1416 ml 1150 ml Output Total 1300 ml 1500 ml Balance 200 ml 116 ml -350 ml medications Current Medications Medications Dose Ordered Sig/Cathy Route Start Time Stop Time Status Last Admin Dose Admin Nitroglycerin 0.4 mg Q5MINP PRN SL 09/16/24 22:00 Morphine Sulfate 2 mg Q30M PRN IV 09/16/24 22:00 Doxycycline Hyclate 100 ml @ 50 mls/hr Q12H IV 09/17/24 09:00 09/18/24 10:44 50 MLS/HR Albuterol 2.5 mg Q6HR NEB 09/17/24 00:00 09/18/24 11:26 2.5 MG Ipratropium [place] 0.5 mg Q6HWA NEB 09/17/24 06:00 09/18/24 11:26 0.5 MG Acetaminophen/ Hydrocodone Bitart 1 tab Q4HPRN PRN PO 09/16/24 22:30 09/18/24 16:34 1 TAB Morphine Sulfate 1 mg Q4HP PRN IV 09/16/24 22:30 09/17/24 02:10 1 MG Methylprednisolone Sodium Succinate 40 mg DAILY IV 09/18/24 10:00 09/18/24 10:44 40 MG Pantoprazole Sodium 40 mg DAILY IV 09/17/24 10:00 09/18/24 10:36 40 MG Ertapenem 1 gm/ Sodium Chloride 50 ml @ 100 mls/hr DAILY IV 09/19/24 10:00 Examination Physical examination: General Appearance: Alert, Oriented X3, Cooperative, No acute distress HEENT: Atraumatic, PERRLA, EOMI, Mucous membrane moist/pink Respiratory: Bilateral ronchi and rales. Cardiovascular: Regular rate, Normal S1, Normal S2, No murmurs, no chest wall tenderness Abdominal: Normal bowel sounds, Soft, mild epigastric tenderness, No hepatospenomegaly, No masses Extremities: No clubbing, No cyanosis, No edema, Normal pulses, No tenderness/swelling Skin: No rashes, No breakdown, No significant lesion Neuro: Normal gait, Normal speech, Strength at 5/5 X4 ext, Normal tone, grossly intact cranial nerves. Psych/Mental Status: Mental status NL, Mood NL laboratory and microbiology Laboratory Tests 09/18/24 06:07 Test 09/18/24 06:07 Range/Units Serum Glucose 99 74-106 mg/dL Microbiology Date/Time Source Procedure Growth Status 09/17/24 00:54 Nose MRSA Screen - Final Complete 09/16/24 19:11 Blood Blood Culture - Preliminary NO GROWTH AFTER 24 HOURS OF INCUBATION. Resulted Labs and/or images reviewed: Labs reviewed by me, Image(s) reviewed by me Problem List/Assessment/Plan Problem List/Assessment/Plan Assessment/Plan # Acute hypoxic respiratory failure likely secondary to gram positive/ gram negative pneumonia # Sepsis, likely due to pneumonia # Ruled out pulmonary emboli # Possible Asthma exacerbation - D-dimer was elevated - CT angio showed bilateral numerous pulmonary nodule, maybe metastatic nodule with bilateral prominent hilar nodes nonspecific may be reactive versus metastatic and ruled out pulmonary emboli - Bilateral lower Doppler studies are normal - Duoneb with albuterol and ipratropium Q6hr - IV methylprednisolone 40 mg daily. - IV ertapenem 1 gm daily and IV doxycycline 100 mg b.i.d. - Covid/Flu/MRSA negative. - Pending blood c/s and sputum c/s. # Acute on chronic anaemia, rule out GI bleeding/ malignancy - H/H: 6.9/23.1 - 1 unit PRBC transfused - Protonix 40 mg IV daily - Ordered stool occult blood # History of cervical cancer, status post surgery # Transaminitis without hyperbilirubinemia likely secondary to malignancy - Chest CT scan showed bilateral numerous pulmonary nodule, possible metastasis - Abdominal CT scan demonstrated, diffuse heterogeneity throughout the liver which may reflect metastatic disease and extensive nodularity in the lower pelvis with associated fat stranding, possibly related to metastatic disease with superimposed infectious / inflammatory process. Recommended IV contrast study - Consulted oncology. - CEA is normal ,CA 125 is 4380 and CA 19-9 <2 # Thrombocytosis, likely reactive - Monitoring DIET: Cardiac diet DVT PROPHYLAXIS: Hold due to bleeding CODE STATUS: Goal of care discussed for more than 21 minutes, full code DISPOSITION: Telemetry Plan discussed with Dr. Rojas Plan discussed with: Patient, Other My Orders My Orders Orders - JAY VALENZUELA Procedure Category Date Status Time Ertapenem Sod Inj PHA 09/19/24 In Process (Invanz) 10:00 CC Plasma Assessment Blood Product Administration S: 1455 Date of Service: Sep 18, 2024 Billing Provider: JANY EASTON MD Common Visit Codes: [id number] INP/OBS CARE(HIGH) JAY VALENZUELA RESIDENT Sep 18, 2024 19:16 JANY EASTON MD Sep 24, 2024 23:51
[2024-09-19] VITALS (9 sets, daily range): BP systolic 107–114; BP diastolic 69–70; PULSE 78–105; RESP 17–20; TEMP 97.7–98.6; O2SAT 91–100
[2024-09-19] MEDS: LORazepam 0.5 MG TAB PO ONE (01:18)
[2024-09-19 06:36] LABS: Basophils # (auto) 0.1 10 ^3/uL (0-0.2); Basophils % (auto) 0.3 % (0.0-2.0); Eosinophils # (auto) 0 10 ^3/uL (0-0.8); Hematocrit 25.8 % (36.0-46.0); Hemoglobin 7.7 g/dL (12.2-16.2); Lymphocytes # (auto) 1.2 10 ^3/uL (0.4-5.4); Lymphocytes % (auto) 5.6 % (10.0-50.0); Mean Corpuscular Hemoglobin 22.2 pg (28.0-32.0); Mean Corpuscular Hgb Conc. 29.7 g/dL (32.0-36.0); Mean Corpuscular Volume 74.8 fL (80.0-100.0); Monocytes # (auto) 1.3 10 ^3/uL (0-1.3); Monocytes % (auto) 6.4 % (0.0-12.0); Neutrophils # (auto) 18.5 10 ^3/uL (1.6-8.6); Neutrophils % (auto) 87.7 % (37.0-80.0); Nucleated Red Blood Cells % 0.1 %; Platelet Count (auto) 546 10^3/uL (140-450); Red Blood Cells 3.45 10^6/uL (4.0-5.20); Red Cell Distribution Width 20.7 % (11.8-14.3); White Blood Cell 21.1 10^3/uL (4.4-10.8)
[2024-09-19 06:53] LABS: Alanine Aminotransferase 30 U/L (7-40); Anion Gap 9 (5-15); BUN/Creatinine Ratio 19.1 (10.0-20.0); Calcium 8.8 mg/dL (8.7-10.4); Carbon Dioxide 26 mmol/L (20-31); Chloride 103 mmol/L (98-107); Potassium 3.8 mmol/L (3.5-5.1); Sodium 138 mmol/L (136-145)
[2024-09-19 06:54] LABS: Bilirubin, Total 0.3 mg/dL (0.2-1.0)
[2024-09-19 06:56] LABS: Albumin 3.1 g/dL (3.2-4.8); Alkaline Phosphatase 269 U/L (46-116); Aspartate Aminotransferase 71 U/L (13-40); Blood Urea Nitrogen 9 mg/dL (9-23); Glucose 120 mg/dL (74-106); Total Protein 5.6 g/dL (5.7-8.2)
[2024-09-19] MEDS: ERTAPENEM SOD INJ 1 GM in SODIUM CHL 0.9% 50 ML IV SCH (11:42)
[2024-09-19] MEDS ORDERED: DOXY1CAP57 PO (12:03)
[2024-09-19] MEDS ORDERED: PRED20TA2 PO (12:03)
[2024-09-19] MEDS ORDERED: FAMO20TA10 PO (12:03)
[2024-09-19] MEDS ORDERED: LACT10SO3 PO (12:03)
[2024-09-19] MEDS ORDERED: CIPR500T4 PO (12:03)
[2024-09-19] MEDS: LACTULOSE 20Gm/30ML SOLN PO ONE (12:35)
[2024-09-19] MEDS ORDERED: ALPR0.5T PO (14:33)
--- NOTE | 2024-09-19 17:33 | DVHDSRES ---
Discharge Summary Date of Admission Resident Creating Document: JAY VALENZUELA RESIDENT Sep 16, 2024 at 21:49 Date of Discharge: Sep 19, 2024 Admitting Diagnosis Acute on chronic respiratory failure secondary to community-acquired Gram-positive/Gram-negative pneumonia Wounds: No wound was present. Labs/Diagnostic Data: Laboratory Results Test 09/19/24 05:44 09/18/24 16:00 09/18/24 13:43 09/17/24 06:27 White Blood Count 21.1 10^3/uL (4.4-10.8) Red Blood Count 3.45 10^6/uL (4.0-5.20) Hemoglobin 7.7 g/dL (12.2-16.2) Hematocrit 25.8 % (36.0-46.0) Mean Corpuscular Volume 74.8 fL (80.0-100.0) Mean Corpuscular Hemoglobin 22.2 pg (28.0-32.0) Mean Corpuscular Hemoglobin Concent 29.7 g/dL (32.0-36.0) Red Cell Distribution Width 20.7 % (11.8-14.3) Platelet Count 546 10^3/uL (140-450) Mean Platelet Volume 7.6 fL (6.9-10.8) Neutrophils (%) (Auto) 87.7 % (37.0-80.0) Lymphocytes (%) (Auto) 5.6 % (10.0-50.0) Monocytes (%) (Auto) 6.4 % (0.0-12.0) Eosinophils (%) (Auto) 0.0 % (0.0-7.0) Basophils (%) (Auto) 0.3 % (0.0-2.0) Neutrophils # (Auto) 18.5 10 ^3/uL (1.6-8.6) Lymphocytes # (Auto) 1.2 10 ^3/uL (0.4-5.4) Monocytes # (Auto) 1.3 10 ^3/uL (0-1.3) Eosinophils # (Auto) 0 10 ^3/uL (0-0.8) Basophils # (Auto) 0.1 10 ^3/uL (0-0.2) Nucleated Red Blood Cells 0.1 % Sodium Level 138 mmol/L (136-145) Potassium Level 3.8 mmol/L (3.5-5.1) Chloride Level 103 mmol/L (98-107) Carbon Dioxide Level 26 mmol/L (20-31) Anion Gap 9 (5-15) Blood Urea Nitrogen 9 mg/dL (9-23) Creatinine 0.47 mg/dL (0.550-1.02) Glomerular Filtration Rate Calc 126 mL/min (>90) BUN/Creatinine Ratio 19.1 (10.0-20.0) Serum Glucose 120 mg/dL (74-106) Calcium Level 8.8 mg/dL (8.7-10.4) Total Bilirubin 0.3 mg/dL (0.2-1.0) Aspartate Amino Transferase (AST) 71 U/L (13-40) Alanine Aminotransferase (ALT) 30 U/L (7-40) Alkaline Phosphatase 269 U/L (46-116) Total Protein 5.6 g/dL (5.7-8.2) Albumin 3.1 g/dL (3.2-4.8) Stool Occult Blood Negative (Negative) Stool Occult Blood Sample #3 (Negative) Urine Color Straw (Yellow) Urine Clarity Turbid (Clear) Urine pH 6.0 (5.0-9.0) Urine Specific [place] 1.008 (1.001-1.035) Urine Protein Negative (Negative) Urine Ketones Negative (Negative) Urine Blood Negative /uL (Negative) Urine Nitrite Negative (Negative) Urine Bilirubin Negative (Negative) Urine Urobilinogen Normal mg/dL (Negative) Urine Leukocyte Esterase Negative /uL (Negative) Urine RBC None seen /hpf (0 - 4) Urine Microscopic WBC 11 /HPF (0-5) Urine Squamous Epithelial Cells Few /hpf (<5) Urine Bacteria None seen /hpf (None Seen) Urine Mucus Few (None Seen) Urine Glucose Normal mg/dL (Normal) Urine Opiates Screen Pos (NEGATIVE) Urine Fentanyl Screen Neg (NEGATIVE) Urine Barbiturates Screen Neg (NEGATIVE) Urine Phencyclidine Screen Neg (NEGATIVE) Urine Amphetamines Screen Neg (NEGATIVE) Urine Benzodiazepines Screen Neg (NEGATIVE) Urine Cocaine Screen Neg (NEGATIVE) Urine Cannabinoids Screen Neg (NEGATIVE) Differential Total Cells Counted 100.0 (100) Neutrophils % (Manual) 80 (37.0-80.0) Band Neutrophils % (Manual) 14 Lymphocytes % (Manual) 4 (10.0-50.0) Monocytes % (Manual) 2 (0-12) Eosinophils % (Manual) 0 (0-7) Basophils % (Manual) 0 (0.0-2.0) Metamyelocytes % (manual) 0 Myelocytes % (Manual) 0 Promyelocytes % (Manual) 0 Blast Cells % (Manual) 0 Reactive Lymphocytes 0 Platelet Estimate Increased Hypochromasia (manual) Moderate Microcytosis Moderate Reticulocyte Count (auto) 3.40 % (0.5-1.5) Lactate Dehydrogenase 261 U/L (120-246) Carcinoembryonic Antigen 11.23 ng/mL (<=5.0) CA 19-9 Antigen <2 U/mL (0-35) CA 125 Antigen 4380.0 U/mL (0.0-38.1) Test 09/16/24 22:42 09/16/24 22:33 09/16/24 18:33 09/16/24 16:12 Influenza Type A Antigen Negative (Negative) Influenza Type B Antigen Negative (Negative) SARS-CoV-2 Antigen (Rapid) Negative (NEGATIVE) Lactic Acid Level 1.8 mmol/L (0.4-2.0) Troponin I High Sensitivity < 3 ng/L (</=34) Thyroid Stimulating Hormone (TSH) 2.34 uIU/mL (0.55-4.78) Beta HCG, Quantitative 2.3 mIU/mL (1.5-4.2) Prothrombin Time 13.2 sec (9.3-11.8) Prothrombin Time INR 1.28 (0.9-1.15) D-Dimer, Quantitative 2.07 mg/L FEU (0.0-0.49) Magnesium Level 1.9 mg/dL (1.6-2.6) B-Type Natriuretic Peptide 33.79 pg/mL (0-100) Other Laboratory Tests 09/19/24 05:44 Brief Hx & Hospital Course: This is a 39-year-old female with past medical history of asthma, cervical cancer (status post surgery in 2022 with hysterectomy and removal of urinary bladder), idiopathic intracranial hypertension, 4 L due to the hospital with the chest pain and shortness of breath for last 4 days prior to this admission. The patient had admitted at [facility] 1 week back due to palpitation and during admission it was found that she had ESBL UTI and was treated for with antibiotic for 5 days, but the patient left AMA. Chest Pain is constant, pressure-like, stabbing in nature, increased with mobility and taking deep breaths and relieves with pain killer. She also reports palpitation, shortness of breath, fever, occasional nausea and vomiting, generalized weakness and dizziness. Hospital course: initially presented sepsis with acute on chronic hypoxic respiratory failure due to possible community-acquired pneumonia/ exacerbation of bronchial asthma, D-dimer was elevated and CT angio showed bilateral numerus pulmonary nodule may be metastatic nodule and bilateral prominent hilar node nonspecific may be reactive versus metastasis and ruled out pulmonary emboli and bilateral lower Doppler ruled out DVT. Patient was treated with DuoNeb with albuterol and ipratropium q.6 hours, IV methylprednisolone 40 mg daily, IV Zosyn 3.375 mg Q 8 hours and IV doxycycline 100 mg b.i.d. patient had history of ESBL UTI 2 months ago and was treated with IV ertapenem 1 g daily for 10 days. hemoglobin dropped to 6.9 and 1 unit PRBC given and ruled out GI bleeding. Patient has history of cervical cancer, status post surgery and the patient was not continuing chemotherapy after the surgery because she prefer holistic treatment. CT abdomen demonstrated diffuse heterogenicity to the liver which reflect metastatic disease and extensive nodularity in the lower pelvis with associated fat stranding possibly related to metastasis disease with superimposed infection and CMP revealed transaminitis with hyperbilirubinemia likely secondary to malignancy. Tumor markers CEA and CA 19 9 were normal CA 125 was 4380. Discharge plan was discussed with the patient and all questions were answered. Patient is being discharged to home. Discharge diagnosis: # Acute hypoxic respiratory failure likely secondary to gram positive/ gram negative pneumonia # Sepsis, likely due to pneumonia # Ruled out pulmonary emboli # Possible Asthma exacerbation # Acute on chronic anaemia, secondary to malignancy ruled out GI bledding # History of cervical cancer, status post surgery # Transaminitis without hyperbilirubinemia likely secondary to malignancy # Thrombocytosis, likely reactive Discharge Plan: Disposition: Home Medications: Alprazolam 0.5 mg b.i.d. p.r.n. for 7 days, ciprofloxacin 500 mg b.i.d. for 7 days, doxycycline 100 mg b.i.d. for 5 days, famotidine 20 mg b.i.d. for 14 days, lactulose 15 mL daily for 7 days, prednisolone 40 mg daily for 3 days. Follow up: Follow up with [facility] in 1 week Follow up with [facility] for management of possible metastasis Consults/Reason for consult Oncology was consulted Operations or Procedures EXAM: CT CT ANGIO CHEST CONTRAST History: chest pain / SOB history of metastatic uterine / ovarian CA Comparison Study: None available TECHNIQUE: A digital gaming cashier image was obtained. During the uneventful, intravenous administration of contrast material, multislice data acquisition was obtained through the chest. 3-D postprocessing is performed by technologist including MIP imaging Radiation Dose : CTDI vol 13.88 mGy, DLP 484.33 mGy*cm. Findings: Lungs: Numerous pulmonary nodules throughout both lungs, measuring up to 0.7 cm in the superior right lower lobe. Not seen on 07/28/2022. Pleura: Trace bilateral pleural effusions. Heart/Great vessels: The visualized heart is unremarkable. No cardiomegaly or pericardial effusion. No pulmonary embolism, aneurysm, or dissection. Mediastinum: Bilateral prominent hilar nodes. Soft tissues/Bones: Mild multilevel degenerative changes of the thoracic spine. The partially visualized upper abdomen is within normal limits. Impression: 1. No evidence of pulmonary embolism, aortic aneurysm, or dissection. 2. Numerous bilateral pulmonary nodules, new from 07/28/2022, consistent with history of metastatic disease. 3. Bilateral prominent hilar nodes nonspecific may be reactive versus metastatic. Exam: CT CT AB PEL WO CON-NO ORAL OR IV History: Hepatic metastasis Comparison Study: CT CT AB PEL WO CON-NO ORAL OR IV on DOS: 05/28/24 Technique: Multidetector spiral CT of the abdomen was performed from lung bases to pubic symphysis. Imaging was performed without IV contrast. Axial, coronal and sagittal multiplanar reformats were obtained from the axial data set by the technologist. Radiation Dose : 1. Abdomen/Pelvis: CTDIvol 21 mGy, DLP 1211.45 mGy*cm. Findings: Evaluation of solid organs is limited due to lack of intravenous contrast use. Lung Bases: Please refer to separately dictated CT from today. Liver: Diffuse heterogeneity throughout the liver. Metastatic disease can not be excluded Gallbladder and Biliary Tree: Unremarkable Spleen: Unremarkable Pancreas: The pancreas is grossly normal in appearance. Adrenal Glands: Unremarkable Kidneys: Kidneys are grossly normal without calculi or hydronephrosis. Ileal conduit is seen in the right lower quadrant. Bladder: Right lower quadrant ileal conduit is seen. Status post cystectomy Bowel: The stomach is grossly normal in appearance. Small bowel and colon are normal in caliber and distribution. The appendix is not visualized; however, no secondary findings of acute appendicitis identified. Ascites: Absent Lymphadenopathy: No mesenteric, retroperitoneal or periportal lymphadenopathy. Abdominal Wall and Mesentery: Ileal conduit is seen in the right lower quadrant. Extensive nodularity in the lower pelvis with associated fat stranding, possibly related to metastatic disease with superimposed infectious inflammatory process. Vasculature: The visualized abdominal aorta is normal in size and caliber. Evaluation of abdominal and pelvic vessels is limited due to lack of intravenous contrast. Pelvic Organs: Unremarkable Musculoskeletal: No aggressive focal bony lesions, acute fractures or dislocation. IMPRESSION: 1. Diffuse heterogeneity throughout the liver which may reflect metastatic disease, although evaluation is extremely limited without IV contrast. 2. Extensive nodularity in the lower pelvis with associated fat stranding, possibly related to metastatic disease with superimposed infectious / inflammatory process. Again, evaluation is extremely limited in the absence of IV contrast 3. Status post cystectomy with ileal conduit formation in the right lower quadrant. Bilateral lower extremity venous duplex Clinical History: raised d dimer Comparison: None Technique: Duplex Doppler evaluation of the deep venous systems of both lower extremities from the common femoral veins to the popliteal veins including color Doppler and spectral/pulsed waveform analysis was performed. Findings: RIGHT SIDE: The common femoral vein demonstrates appropriate compressibility and waveform variability. There is compressibility/patency of the great saphenous vein at the proximal thigh. The femoral vein demonstrates appropriate compressibility and waveform variability. The deep femoral vein demonstrates appropriate compressibility and waveform variability. The popliteal vein demonstrates appropriate compressibility and waveform variability. There is normal compressibility at the tibioperoneal trunk. LEFT SIDE: The common femoral vein demonstrates appropriate compressibility and waveform variability. There is compressibility/patency of the great saphenous vein at the proximal thigh. The femoral vein demonstrates appropriate compressibility and waveform variability. The deep femoral vein demonstrates appropriate compressibility and waveform variability. The popliteal vein demonstrates appropriate compressibility and waveform variability. There is normal compressibility at the tibioperoneal trunk. Impression: 1. No right or left femoropopliteal venous thrombosis. Condition at Discharge: Guarded Final Diagnosis/Problems List # Acute on chronic hypoxic respiratory failure likely secondary to gram positive/ gram negative pneumonia # Sepsis, likely due to pneumonia # Ruled out pulmonary emboli # Moderate protein malnutrition # Possible Asthma exacerbation # Acute on chronic anaemia, secondary to malignancy ruled out GI bledding # History of cervical cancer, status post surgery # Transaminitis without hyperbilirubinemia likely secondary to malignancy # Thrombocytosis, likely reactive Discharge Disposition: Home Discharge Instruct/Medications Diet: Regular Activity: No Restrictions, As Tolerated Follow Up/Referral: Follow up with ID clinic in 1 week Follow up with [facility] for management of possible metastasis of cervical cancer Medications: As per EMR Discharge Statement: "Patient was advised to return to the ER or call 911 if any headaches, dizziness, shortness of breath, chest pain, abdominal pain, bleeding, fevers, or worsening of medical condition. Patient was counseled about treatment plan, medications, possible side effects, patientverbalized understanding. All questions were answered to the best of my ability. This discharge took greater then 30 minutes in planning, reviewing documentation, counseling the patient, and discussing with other team members." ASSESSMENT ASSESSMENT Assessment # Acute hypoxic respiratory failure likely secondary to gram positive/ gram negative pneumonia # Sepsis, likely due to pneumonia # Ruled out pulmonary emboli # Possible Asthma exacerbation # Acute on chronic anaemia, secondary to malignancy ruled out GI bledding # History of cervical cancer, status post surgery # Transaminitis without hyperbilirubinemia likely secondary to malignancy # Thrombocytosis, likely reactive Date of Service: Sep 19, 2024 Billing Provider: JANY EASTON MD Common Visit Codes: 30095-YTL/OBS DISCH DAY >30min JAY VALENZUELA RESIDENT Sep 19, 2024 17:33 JANY EASTON MD Sep 25, 2024 15:28
== END 2024-09-19 17:15 | disposition home or self-care (01) | DRG 720 ==
LOC: ER 15:08 → EDBD 15:08 → TELE 21:49 → TELE-CENTR 23:28
PROVIDERS: ADMIT Student in an Organized Health Care Education/Training Program; ATTEND Student in an Organized Health Care Education/Training Program
PROC: 30233N1 Transfusion of Nonautologous Red Blood Cells into Peripheral Vein, Percutaneous Approach (ICD-10-PCS; principal; 2024-09-17)
DX: A41.59 Other Gram-negative sepsis (principal); J96.21 Acute and chronic respiratory failure with hypoxia; J15.69 Pneumonia due to other Gram-negative bacteria; J12.89 Other viral pneumonia; E44.1 Mild protein-calorie malnutrition; J15.9 Unspecified bacterial pneumonia; E87.1 Hypo-osmolality and hyponatremia; Z20.822 Contact with and (suspected) exposure to COVID-19; J45.901 Unspecified asthma with (acute) exacerbation; N39.0 Urinary tract infection, site not specified; D75.839 Thrombocytosis, unspecified; R65.20 Severe sepsis without septic shock; E80.6 Other disorders of bilirubin metabolism; Z85.41 Personal history of malignant neoplasm of cervix uteri; Z68.35 Body mass index [BMI] 35.0-35.9, adult; Z79.899 Other long term (current) drug therapy
CPT/HCPCS: 36415; 36430; 71045; 71275; 74176; 80048; 80053; 80307; 81001; 82270; 82378; 83605; 83615; 83735; 83880; 84443; 84484; 84702; 85007; 85025; 85027; 85045; 85379; 85610; 86301; 86304; 86850; 86870; 86900; 86901; 86902; 86922; 87040; 87081; 87086; 87088; 87186; 87205; 87426; 87804; 93005; 93306; 93970; 94640; 96361; 96365; 96367; 96375; 96376; 99291; G0378; J1335; J2405; J2470; J2543

== ENCOUNTER 2024-09-22 22:27 | Inpatient (IN) | payer MEDICAID ==
[~2024-09-22] VITALS: Ht 157.5 cm; Wt 88.6 kg
[2024-09-22] MEDS: METOPROLOL TARTRATE 1MG/1ML-5ML VIAL IV SCH
[~2024-09-22 22:27] MED LIST changes: -ALBU0.084; -ALBU108A5 IN; +ALPR0.5T PO; -BACDST PO; -CEPH-91; -CEPH500C PO; +CIPR500T4 PO; +DOXY1CAP57 PO; +FAMO20TA10 PO; -HYDR-4798 PO; -HYDR25SU21 PR; +LACT10SO3 PO; -METR-344 PO; -NITR-87 PO; -ONDA-144 PO
--- NOTE | 2024-09-22 23:13 | ED.PDOC ---
History of Present Illness HPI Comments 39 y/o F is BIBA for c/o non-radiating, sternal chest pain, palpitations, and nausea for 1x day, today. Per EMS report, patient endorses on sudden and unprovoked onset of symptoms, yesterday. At time of assessment, patient reports no recent strenuous activities, sick contact, travel, stressors, or other rele vant information or history. She denies having any shortness of breath, dizziness, vomiting, fever, chills, or other associated symptoms or modifiers at this time. Chief Complaint: Chest Pain Time Seen by MD: 22:50 Primary Care Provider: ABIMAEL Reviewed Notes: Nurses Notes, Medical Customer Service Representative Notes, Medications, Allergies Allergies: Coded Allergies: Pseudoephedrine (Verified Allergy, Unknown, 06/19/24) Home Meds Active Scripts Alprazolam (Xanax) 0.5 Mg Tb, 1 TAB PO BID PRN for 7 Days, #14 TAB 0 Refills Prov:JANY EASTON MD 09/19/24 Lactulose (Lactulose) 10 Gm/15 Ml Julita, 10 GM PO DAILY for 7 Days, #210 ML Prov:JAY VALENZUELA 09/19/24 Prednisone (Prednisone) 20 Mg Tab, 40 MG PO DAILY for 3 Days, #5 MG Prov:JAY VALENZUELA 09/19/24 Famotidine (PEPCID TABLET) 20 Mg Tb, 1 TAB PO BID for 14 Days, #28 TAB 5 Refills Prov:JAY VALENZUELA 09/19/24 Doxycycline Monohydrate (Doxycycline Monohydrate) 100 Mg Cap, 1 CAP PO BID for 5 Days, #10 CAP Prov:AJY VALENZUELA 09/19/24 Ciprofloxacin Hcl (Ciprofloxacin Hcl) 500 Mg Tab, 1 TAB PO BID for 7 Days, #14 TAB Prov:JAY VALENZUELA 09/19/24 Information Source: Patient, Emergency Med Personnel Mode of Arrival: EMS Severity: Moderate Timing: Days Duration: Since onset Prehospital treatment: 12 Lead EKG, Accucheck (113), Peripheral Equipment Operator, Other (22G to left forearm ) Past Medical History PAST MEDICAL HISTORY: Asthma, Cancer ("lung, liver, and pelvic,"), HTN ( idiopathic intracranial hypertension,), UTI'S Past Medical History (Other): # Acute hypoxic respiratory failure likely secondary to gram positive/ gram negative pneumonia # Sepsis, likely due to pneumonia # Ruled out pulmonary emboli # Possible Asthma exacerbation # Acute on chronic anaemia, secondary to malignancy ruled out GI bledding # History of cervical cancer, status post surgery # Transaminitis without hyperbilirubinemia likely secondary to malignancy # Thrombocytosis, likely reactive # Obesity Surgical History: Hysterectomy Surgical History (Other): colostomy bag 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 Family History Family History: Reviewed,noncontributory to illness Social History Smoker: Non-Smoker Alcohol: Occasionally Drugs: Denies Drug Use Lives In: Home Cardiovascular: reports: chest pain, palpitations Gastrointestinal: reports: nausea All Other Systems: Reviewed and Negative (negative unless otherwise stated above or in HPI ) Physical Exam General Appearance: No Apparent Distress, Normal HEENT: Normal ENT Inspection, Pharynx Normal, TMs Normal Neck: Full Range of Motion, Non-Tender, Normal, Normal Inspection Respiratory: Chest Non-Tender, Lungs Clear, No Accessory Muscle Use, No Respiratory Distress, Normal Breath Sounds Cardiovascular: No Edema, No JVD, No Murmur, No Gallop, Normal Peripheral Pulses, Regular Rate/Rhythm Breast Exam: Deferred Gastrointestinal: No Organomegaly, Non Tender, No Pulsatile Mass, Normal Bowel Sounds, RLQ (colostomy bag in place in RLQ region), Soft, Tenderness (tenderness to upper abdomen) Genitalia: Deferred Pelvic: Deferred Rectal: Deferred Extremities: No calf tenderness, Normal capillary refill, Normal inspection, Normal range of motion, Non-tender, No pedal edema Musculoskeletal : Apperance: Normal Neurologic: Alert, japanese interpreter II-XII nml as Tested, No Motor Deficits, Normal Affect, Normal Mood, No Sensory Deficits Cerebellar Function: Normal Reflexes: Normal Skin: Dry, Normal Color, Warm Lymphatic: No Adenopathy Was a procedure done? Was a procedure done?: No EKG EKG #1: Pulse Rate (adult): 140 Economy: Normal Cardiac Rhythm: ST Block: None Hypertrophy: None ST: Normal EKG #2: Pulse Rate (adult): 146 Economy: Normal Cardiac Rhythm: ST Block: None Hypertrophy: None ST: Normal Differential Dx Considerations may include: OK, PE, ACS, angina, anxiety, musculoskeletal pain, costochondritis, pericarditis, gastritis, viral syndrome, URI X-Ray, Labs, Meds, VS Vital Signs Date Time Temp Pulse Resp B/P (MAP) Pulse Ox O2 Delivery O2 Flow Rate FiO2 09/23/24 01:34 105 09/23/24 01:14 146 09/23/24 00:00 104 09/22/24 23:55 110 120/78 09/22/24 23:55 140 18 120/78 09/22/24 23:50 140 120/78 09/22/24 23:26 146 09/22/24 23:13 140 09/22/24 22:41 99.9 140 22 110/39 (62) 99 09/22/24 22:30 140 09/22/24 00:00 105 98/70 Lab Test 09/23/24 00:27 09/22/24 23:16 Range/Units Troponin I High Sensitivity < 3 L < 3 L </=34 ng/L White Blood Count 39.6 #*H 4.4-10.8 10^3/uL Red Blood Count 4.11 4.0-5.20 10^6/uL Hemoglobin 9.3 #L 12.2-16.2 g/dL Hematocrit 31.6 #L 36.0-46.0 % Mean Corpuscular Volume 77.0 L 80.0-100.0 fL Mean Corpuscular Hemoglobin 22.6 L 28.0-32.0 pg Mean Corpuscular Hemoglobin Concent 29.3 L 32.0-36.0 g/dL Red Cell Distribution Width 22.6 H 11.8-14.3 % Platelet Count 677 H 140-450 10^3/uL Mean Platelet Volume 7.4 6.9-10.8 fL Neutrophils (%) (Auto) 37.0-80.0 % Lymphocytes (%) (Auto) 10.0-50.0 % Monocytes (%) (Auto) 0.0-12.0 % Basophils (%) (Auto) 0.0-2.0 % Neutrophils # (Auto) 1.6-8.6 10 ^3/uL Lymphocytes # (Auto) 0.4-5.4 10 ^3/uL Monocytes # (Auto) 0-1.3 10 ^3/uL Differential Total Cells Counted 100.0 100 Neutrophils % (Manual) 90 H 37.0-80.0 Band Neutrophils % (Manual) 0 Lymphocytes % (Manual) 5 L 10.0-50.0 Monocytes % (Manual) 5 0-12 Eosinophils % (Manual) 0 0-7 Basophils % (Manual) 0 0.0-2.0 Metamyelocytes % (manual) 0 Myelocytes % (Manual) 0 Promyelocytes % (Manual) 0 Blast Cells % (Manual) 0 Reactive Lymphocytes 0 Platelet Estimate Increased Large Platelets Few Hypochromasia (manual) Moderate Anisocytosis (manual) Slight Microcytosis Slight Stomatocytes Few Prothrombin Time 13.3 H 9.3-11.8 sec Prothrombin Time INR 1.29 H 0.9-1.15 Activated Partial Thromboplast Time 29.3 24.5-34.5 SEC Sodium Level 134 L 136-145 mmol/L Potassium Level 4.0 3.5-5.1 mmol/L Chloride Level 101 98-107 mmol/L Carbon Dioxide Level 24 20-31 mmol/L Anion Gap 9 5-15 Blood Urea Nitrogen 7 L 9-23 mg/dL Creatinine 0.50 L 0.550-1.02 mg/dL Glomerular Filtration Rate Calc 124 >90 mL/min BUN/Creatinine Ratio 14.0 10.0-20.0 Serum Glucose 114 H 74-106 mg/dL Calcium Level 8.8 8.7-10.4 mg/dL Total Bilirubin 0.8 0.2-1.0 mg/dL Aspartate Amino Transferase (AST) 67 H 13-40 U/L Alanine Aminotransferase (ALT) 37 7-40 U/L Alkaline Phosphatase 301 H 46-116 U/L B-Type Natriuretic Peptide 29.86 0-100 pg/mL Total Protein 5.8 5.7-8.2 g/dL Albumin 3.0 L 3.2-4.8 g/dL Lipase 22 12-53 U/L Beta HCG, Quantitative 2.8 1.5-4.2 mIU/mL Current Medications Medications (Trade) Dose Ordered Sig/Cathy Route Start Time Stop Time Status Last Admin Morphine Sulfate 4 mg ONCE ONCE IV 09/22/24 22:45 09/22/24 22:49 DC 09/22/24 23:55 Ondansetron HCl (Zofran) 4 mg ONCE ONCE IV 09/22/24 22:45 09/22/24 22:49 DC 09/22/24 23:56 Sodium Chloride 1,000 ml @ 150 mls/hr Q6H40M ONCE IV 09/22/24 22:45 09/23/24 05:24 09/22/24 23:55 Ceftriaxone Sodium 50 ml @ 100 mls/hr ONCE ONCE IV 09/22/24 22:45 09/22/24 23:14 DC 09/22/24 23:56 Metoprolol Tartrate (Lopressor) 5 mg Q5M IV 09/22/24 22:45 09/22/24 22:56 DC 09/22/24 00:00 [place] [id number] Ph: [phone] DIAGNOSTIC IMAGING Diagnostic Imaging Report : [id number] Signed PATIENT: JARRED NGUYEN ACCT: [id number] UNIT: [id number] : 1985 LOC: ER ROOM / BED: / AGE / SEX: 39 / F ADM STATUS: REG ER SERVICE 2244 ORDERING PHYSICIAN: SUSSY DAHL MD PROCEDURE(s): ABPLIV - CT AB PEL WITH IV CON ONLY REASON: abd pain ORDER NUMBER(s): [id number], ACCESSION NUMBER(s): [id number] Exam: CT CT AB PEL WITH IV CON ONLY History: abd pain Comparison Study: None available at time of dictation. Technique: Multidetector spiral CT of the abdomen and pelvis was performed from lung bases to pubic symphysis. Intravenous contrast was administered during this examination. Portal venous imaging was obtained. Axial, coronal and sagittal multiplanar reformats were performed by the technologist on a separate workstation. Radiation Dose : 1. Abdomen/Pelvis: CTDIvol 17 mGy, DLP 1049 mGy*cm. Findings: Lung Bases: Lung bases demonstrate multiple pulmonary nodules measuring up to 1 cm. Liver: Enlarged liver demonstrating nodular contour and multiple ill-defined hypodense lesions throughout. Gallbladder and Biliary Tree: Unremarkable Spleen: Unremarkable Pancreas: The pancreas is normal in appearance without focal lesions or abnormal enhancement. Adrenal Glands: Unremarkable Kidneys: Kidneys demonstrate normal symmetric enhancement without focal lesions, calculi or hydronephrosis. Bladder: Status post cystectomy with bilateral ureters terminating within ileal conduit. Bowel: The stomach is grossly normal in appearance. Postsurgical changes of the colon and small bowel at the ileocecal junction. Right lower quadrant ileostomy. The appendix is not visualized; however, no secondary findings of acute appendicitis identified. Ascites: Absent Lymphadenopathy: No mesenteric, retroperitoneal or periportal lymphadenopathy. Abdominal Wall and Mesentery: Unremarkable. Vasculature: The visualized abdominal aorta is normal in size and caliber. Abdominal and pelvic vessels demonstrate normal enhancement. Pelvic Organs: Fat stranding and mesenteric thickening involving the anterior lower pelvis. Multiple prominent nodules are noted in the anterior pelvis Musculoskeletal: No aggressive focal bony lesions, acute fractures or dislocation. IMPRESSION: Status post cystectomy with ileal conduit and right lower quadrant ileostomy. There is associated mesentery thickening involving the anterior lower pelvis with multiple prominent mesenteric nodules Ill-defined hypodense lesions scattered throughout the liver as well as multiple subcentimeter pulmonary nodules in the lung bases concerning for metastatic disease. ATED BY: TOO ALVAREZ DO DICTATED DATE/TIME: 09/23/24146 SIGNED BY: TOO ALVAREZ DO SIGNED DATE/TIME: 09/23/24146 CC: [place] [id number] Ph: [phone] DIAGNOSTIC IMAGING Diagnostic Imaging Report : [id number] Signed PATIENT: JARRED NGUYEN ACCT: [id number] UNIT: [id number] : 1985 LOC: ER ROOM / BED: / AGE / SEX: 39 / F ADM STATUS: REG ER SERVICE 1 ORDERING PHYSICIAN: SUSSY DAHL MD PROCEDURE(s): CXR1 - CHEST XRAY 1 VIEW REASON: PALPITATIONS ORDER NUMBER(s): [id number], ACCESSION NUMBER(s): [id number] CHEST RADIOGRAPH Indication: PALPITATIONS Technique: Single frontal view of the chest was obtained COMPARISON: XY CHEST PORTABLE on DOS: 09/23/24, XY CHEST PORTABLE on DOS: 09/16/24, RHUM on DOS: 07/28/22 FINDINGS: Lines and Tubes: None Lungs: Clear Pleura: No effusion. No pneumothorax. Cardiomediastinal contours: Unremarkable Bones: Unremarkable IMPRESSION: 1. No acute disease. ATED BY: DONOVAN BROOKS MD DICTATED DATE/TIME: 09/23/24135 SIGNED BY: DONOVAN BROOKS MD SIGNED DATE/TIME: 09/23/24135 CC: First troponin is three. Second troponin is three. EKG showed sinus tach with a heart rate of 140 beats per minute. The patient was given metoprolol 5 mg q.5h minutes [place] [address]. Hemoglobin 9.3 and platelet count is 677 Lipase is 22. UA pending The patient was started on Rocephin as there was no Levaquin available at this time.. She does have a status post cystectomy with ileal conduit and right lower quadrant ileostomy. UTI is suspected The patient will be admitted to the hospitalist for further evaluation and care. Time of 1ST Reevaluation: 23:20 Reevaluation 1ST: Unchanged Patient Education/Counseling: Diagnosis, Treatment Family Education/Counseling: No Family Present Departure 1 Departure Time of Disposition: 02:24 Impression: Primary Impression: Chest pain, non-cardiac Additional Impressions: Palpitations Leukocytosis Qualified Codes: D72.825 - Bandemia Thrombocytosis UTI (urinary tract infection) Qualified Codes: N39.0 - Urinary tract infection, site not specified Disposition: ADMITTED INPATIENT Admit to: Tele Condition: Guarded Critical Care Note Critical Care Time?: Yes (35 min-critical care time only) Stability Stability form required: No Heart Score Heart Score: Heart Score Response (Comments) Value History Moderate Suspicious 1 EKG Normal 0 Age <45 0 Risk Factors >3 or Hx ASHD 2 Troponin Normal limit 0 Total 3 I personally scribed for SUSSY DAHL MD ([email or web address]) on 09/22/24 at 23:13. Electronically submitted by Ankit Queen ([email or web address]). I personally scribed for SUSSY DAHL MD ([email or web address]) on 09/23/24 at 01:14. Electronically submitted by Ankit Queen ([email or web address]). SUSSY DAHL MD Sep 22, 2024 23:13
[2024-09-22 23:28] LABS: Hemoglobin 9.3 g/dL (12.2-16.2)
[2024-09-22 23:30] LABS: Hematocrit 31.6 % (36.0-46.0); Mean Corpuscular Hemoglobin 22.6 pg (28.0-32.0); Mean Corpuscular Hgb Conc. 29.3 g/dL (32.0-36.0); Platelet Count (auto) 677 10^3/uL (140-450); Red Blood Cells 4.11 10^6/uL (4.0-5.20)
[2024-09-22 23:33] LABS: Red Cell Distribution Width 22.6 % (11.8-14.3)
[2024-09-22 23:38] LABS: White Blood Cell 39.6 10^3/uL (4.4-10.8)
[2024-09-22 23:39] LABS: Band Neutrophils % (manual) 0; Basophils % (manual) 0 (0.0-2.0); Blast Cells 0; Eosinophils % (manual) 0 (0-7); Metamyelocytes % 0; Myelocytes % 0; Promyelocytes % 0; Reactive Lymphocytes 0
[2024-09-22 23:41] LABS: INR 1.29 (0.9-1.15); Partial Thromboplastin Time 29.3 SEC (24.5-34.5); Prothrombin Time 13.3 sec (9.3-11.8)
[2024-09-22] MEDS: SODIUM CHLORIDE 0.9% 1,000 ML IV ONE ×2 (23:47→23:55)
[2024-09-22 23:49] LABS: Alanine Aminotransferase 37 U/L (7-40); Anion Gap 9 (5-15); Calcium 8.8 mg/dL (8.7-10.4); Carbon Dioxide 24 mmol/L (20-31); Chloride 101 mmol/L (98-107); Lipase 22 U/L (12-53)
[2024-09-22 23:50] LABS: Bilirubin, Total 0.8 mg/dL (0.2-1.0); Total Protein 5.8 g/dL (5.7-8.2)
[2024-09-22] MEDS: MORPHINE SULFATE 4 MG/ML SYR/VIAL IV ONE (23:55)
[2024-09-22] MEDS: cefTRIAXone 1GM/50ML D5W 50 ML IV ONE (23:56)
[2024-09-22] MEDS: ONDANSETRON HCL 4 MG/2 ML VIAL IV ONE (23:56)
[2024-09-22 23:58] LABS: Large Platelets FEW; Lymphocytes % (manual) 5 (10.0-50.0); Monocytes % (manual) 5 (0-12); Platelet Estimate Increased
[2024-09-22 23:59] LABS: Anisocytosis Slight; Hypochromia Moderate; Stomatocytes Few
[2024-09-23 00:01] LABS: Blood Urea Nitrogen 7 mg/dL (9-23); Glucose 114 mg/dL (74-106); Sodium 134 mmol/L (136-145)
[2024-09-23 00:02] LABS: Alkaline Phosphatase 301 U/L (46-116); Aspartate Aminotransferase 67 U/L (13-40)
--- NOTE | 2024-09-23 01:39 | DVH ---
CHEST RADIOGRAPH Indication: PALPITATIONS Technique: Single frontal view of the chest was obtained COMPARISON: XY CHEST PORTABLE on DOS: 09/23/24, XY CHEST PORTABLE on DOS: 09/16/24, RHUM on DOS: 07/28/22 FINDINGS: Lines and Tubes: None Lungs: Clear Pleura: No effusion. No pneumothorax. Cardiomediastinal contours: Unremarkable Bones: Unremarkable IMPRESSION: 1. No acute disease.
--- NOTE | 2024-09-23 01:50 | DVH ---
Exam: CT CT AB PEL WITH IV CON ONLY History: abd pain Comparison Study: None available at time of dictation. Technique: Multidetector spiral CT of the abdomen and pelvis was performed from lung bases to pubic s ymphysis. Intravenous contrast was administered during this examination. Portal venous imaging was obtained. Axial, coronal and sagittal multiplanar reformats were performed by the technologist on a separate workstation. Radiation Dose : 1. Abdomen/Pelvis: CTDIvol 17 mGy, DLP 1049 mGy*cm. Findings: Lung Bases: Lung bases demonstrate multiple pulmonary nodules measuring up to 1 cm. Liver: Enlarged liver demonstrating nodular contour and multiple ill-defined hypodense lesions throug hout. Gallbladder and Biliary Tree: Unremarkable Spleen: Unremarkable Pancreas: The pancreas is normal in appearance without focal lesions or abnormal enhancement. Adrenal Glands: Unremarkable Kidneys: Kidneys demonstrate normal symmetric enhancement without focal lesions, calculi or hydroneph rosis. Bladder: Status post cystectomy with bilateral ureters terminating within ileal conduit. Bowel: The stomach is grossly normal in appearance. Postsurgical changes of the colon and small bowel at the ileocecal junction. Right lower quadrant ileostomy. The appendix is not visualized; however, no secondary findings of acute appendicitis identified. Ascites: Absent Lymphadenopathy: No mesenteric, retroperitoneal or periportal lymphadenopathy. Abdominal Wall and Mesentery: Unremarkable. Vasculature: The visualized abdominal aorta is normal in size and caliber. Abdominal and pelvic vess els demonstrate normal enhancement. Pelvic Organs: Fat stranding and mesenteric thickening involving the anterior lower pelvis. Multiple prominent nodules are noted in the anterior pelvis Musculoskeletal: No aggressive focal bony lesions, acute fractures or dislocation. IMPRESSION: Status post cystectomy with ileal conduit and right lower quadrant ileostomy. There is associated mesentery thickening involving the anterior lower pelvis with multiple prominent mesenteric nodules Ill-defined hypodense lesions scattered throughout the liver as well as multiple subcentimeter pulmon shani nodules in the lung bases concerning for metastatic disease.
[2024-09-23] MEDS: cefTRIAXone 1GM/50ML D5W 50 ML IV ONE (02:20)
[2024-09-23 03:02] VITALS: PULSE 105; RESP 18; O2SAT 97
[2024-09-23] MEDS: HYDROmorphone HCL 2 MG/ML VL/or syr IV ONE (04:02)
--- NOTE | 2024-09-23 06:13 | ECG ---
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
--- NOTE | 2024-09-23 06:13 | ECG ---
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
--- NOTE | 2024-09-23 06:14 | ECG ---
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
[2024-09-23] MEDS: SODIUM CHLOR 0.9% PF (SALINE LOCK) 10ML VIAL/SYR IV SCH (06:16)
[2024-09-23] MEDS: SODIUM CHLORIDE 0.9% 1,000 ML IV SCH (06:16)
--- NOTE | 2024-09-23 06:28 | DVHHPRES ---
History of Present Illness Resident Creating Document: RAKESH GILMORE RESIDENT History of Present Illness 39-year-old female with past medical history of asthma, cervical cancer (status post surgery in 2022 with hysterectomy and removal of urinary bladder), idiopathic intracranial hypertension, uses oxygen for told sleep apnea since 5 months (but has not performed sleep study) came to the hospital due to Palpitation. Patient reversed or heart rate was 140s, the patient was recently discharged from the hospital 3-4 days ago after being treated for pneumonia, on discharge patient was taking prednisone, doxycycline and ciprofloxacin. The patient also complains of abdominal pain pain is mostly on the right upper abdomen, patient also reports she is having diarrhea for last 2 days, with watery stool and no blood, she described the pain is 6-7 /10, with no radiation, nothing makes the pain better. Patient also history of NGT and she is taking lorazepam. Patient also reports occasional nocturnal dyspnea for which she uses oxygen at night. Past Medical History asthma, cervical cancer (status post surgery in 2022 with hysterectomy and removal of urinary bladder), idiopathic intracranial hypertension Past Social History Denies Smoking, Drinking Alcohol or any elicit drug use. Review of Systems Review of Systems General: Reports generalized weakness HEENT: No headaches, visiual changes, hearing loss, tinnitus, nasal congestion and discharge, and sore throat. Cardiovascular: Reports chest pain and palpitation Respiratory: Reports shortness of breaths, Denies cough Gastrointestinal: Reports Diffuse abd pain. Genitourinary: No dysuria, hematuria, discharge, frequency, urgency, nocturia, incontinence, and urinary retention. Endocrine: No heat or cold intolerance, polydipsia, polyuria, and polyphagia. Neurological: No dizziness, extremity weakness and numbness, tremors, gait disturbance, seizures, and memory impairment. Psychiatric: Denies depression, anxiety,or insomnia. Musculoskeletal: Denies neck pain, stiffness and swelling, back pain, muscle weakness, joint pain, stiffness, swelling, or limited range of motion. Skin: No rashes, itching, skin lesion, changes in hair, nail, skin texture and breast. Hematologic/Lymphatic: Denies easy bruising, bleeding tendencies, or lymph node enlargement Allergies: Coded Allergies: Pseudoephedrine (Verified Allergy, Unknown, 06/19/24) Medications Current Medications Medications Dose Ordered Sig/Cathy Route Start Time Stop Time Status Last Admin Dose Admin Sodium Chloride 10 ml Q8HR IV 09/23/24 06:00 09/23/24 06:16 10 ML Ondansetron HCl 4 mg Q4HP PRN IV 09/23/24 06:00 Sodium Chloride 1,000 ml @ 100 mls/hr Q10H IV 09/23/24 06:15 09/23/24 06:16 100 MLS/HR Exam Vital Signs Vital Signs Date Time Temp Pulse Resp B/P (MAP) Pulse Ox O2 Delivery O2 Flow Rate FiO2 09/23/24 04:02 110 18 100/70 09/23/24 04:00 97 09/23/24 03:02 Room Air* 0 21 09/22/24 22:41 99.9 Exam General Appearance: Alert, Oriented X3, Cooperative, No acute distress HEENT: Atraumatic, PERRLA, EOMI, Mucous membrane moist/pink Respiratory: Clear to auscaltation Cardiovascular: Regular rate, Normal S1, Normal S2, No murmurs, no chest wall tenderness Abdominal: Tender to palpate, Extremities: No clubbing, No cyanosis, No edema, Normal pulses, No tenderness/swelling Skin: No rashes, No breakdown, No significant lesion Neuro: Normal gait, Normal speech, Strength at 5/5 X4 ext, Normal tone, Sensation intact, Cranial nerves 3-12 NL, Reflexes 2+ Psych/Mental Status: Mental status NL, Mood NL Labs/Xrays Labs Test 09/23/24 06:15 09/23/24 00:27 09/22/24 23:16 Range/Units Troponin I High Sensitivity < 3 L </=34 ng/L Differential Total Cells Counted 100.0 100 Neutrophils % (Manual) 90 H 37.0-80.0 Band Neutrophils % (Manual) 0 Lymphocytes % (Manual) 5 L 10.0-50.0 Monocytes % (Manual) 5 0-12 Eosinophils % (Manual) 0 0-7 Basophils % (Manual) 0 0.0-2.0 Metamyelocytes % (manual) 0 Myelocytes % (Manual) 0 Promyelocytes % (Manual) 0 Blast Cells % (Manual) 0 Reactive Lymphocytes 0 Platelet Estimate Increased Large Platelets Few Hypochromasia (manual) Moderate Anisocytosis (manual) Slight Microcytosis Slight Stomatocytes Few Prothrombin Time 13.3 H 9.3-11.8 sec Prothrombin Time INR 1.29 H 0.9-1.15 Activated Partial Thromboplast Time 29.3 24.5-34.5 SEC B-Type Natriuretic Peptide 29.86 0-100 pg/mL Lipase 22 12-53 U/L Beta HCG, Quantitative 2.8 1.5-4.2 mIU/mL Assessment/Plan Assessment/Plan # Sepsis, likely due to Gastroentritis - Chest x-ray shows No cardio pulmonary disease - CT shows bilateral numerous pulmonary nodule, maybe metastatic nodule - Empiric antibiotics of Meropenem and vencomycine - IV fluid -Previous H/O ESBL - Ordered UA, UC -Blood culture # Sinus Tachycardia Due to Sepsis # History of cervical cancer, status post surgery - CT scan shows bilateral numerous pulmonary nodule, possible metastasis - diffuse heterogeneity throughout the liver which may reflect metastatic disease # Thrombocytosis, likely reactive - Monitoring # Mild hyponatremia, monitoring # Transaminitis Goal of care discussed with Patient for 39 mins: Full Code Case discussed with Dr. Brothers Plan discussed with: Patient My Orders Orders - RAKESH GILMORE RESIDENT Procedure Category Date Status Time Admit ADMIT 09/23/24 Transmitted 06:00 Allergies CHRISTEN 09/23/24 In Process 06:00 Code Status CODE 09/23/24 Transmitted 06:00 Sodium Chloride Lock PHA 09/23/24 In Process (Saline Lock Ns) 06:00 Ondansetron Hcl PHA 09/23/24 In Process (Zofran) 06:00 Complete Blood Count LAB 09/24/24 Verified 04:00 Comprehensive LAB 09/24/24 Verified Metabolic Panel 04:00 Clear Liq Diet DIET 09/23/24 Transmitted Breakfast Oxygen By Nasal RT 09/23/24 Transmitted Cannula 06:00 Special Assets Officer For CHRISTEN 09/23/24 In Process 24 Hours 06:00 Complete Blood Count LAB 09/23/24 In Process 06:07 Comprehensive LAB 09/23/24 In Process Metabolic Panel 06:07 Urinalysis LAB 09/23/24 Logged 06:07 Clostridium Difficile YAMIL 09/23/24 Logged Toxin 06:07 Covid19 Antigen Anh LAB 09/23/24 Logged Rapid Influenza A&B LAB 09/23/24 Logged 06:08 Drug Screen LAB 09/23/24 Logged 06:10 Sodium Chloride 0.9% PHA 09/23/24 In Process 06:15 Date of Service: Sep 23, 2024 Billing Provider: STEFANIA BROTHERS MD Common Visit Codes: [id number] INP/OBS CARE (HIGH) RAKESH GILMORE RESIDENT Sep 23, 2024 06:28 STEFANIA BROTHERS MD Sep 29, 2024 14:16
[2024-09-23 06:34] LABS: Hemoglobin 9.1 g/dL (12.2-16.2); Mean Corpuscular Volume 75.8 fL (80.0-100.0)
[2024-09-23 06:41] LABS: Mean Corpuscular Hemoglobin 23.8 pg (28.0-32.0); Mean Corpuscular Hgb Conc. 31.4 g/dL (32.0-36.0); Platelet Count (auto) 669 10^3/uL (140-450); Red Blood Cells 3.82 10^6/uL (4.0-5.20)
[2024-09-23 06:53] LABS: Alanine Aminotransferase 39 U/L (7-40); Anion Gap 9 (5-15); BUN/Creatinine Ratio 11.7 (10.0-20.0); Calcium 8.7 mg/dL (8.7-10.4); Carbon Dioxide 24 mmol/L (20-31)
[2024-09-23 06:54] LABS: Total Protein 5.8 g/dL (5.7-8.2)
[2024-09-23] MEDS ORDERED: VANCOMYCIN PER PHARMACY 0 MG IV SCH (07:00)
[2024-09-23 07:02] LABS: Basophils % (manual) 0 (0.0-2.0); Blast Cells 0; Blood Urea Nitrogen 7 mg/dL (9-23); Chloride 98 mmol/L (98-107); Eosinophils % (manual) 0 (0-7); Glucose 114 mg/dL (74-106); Metamyelocytes % 0; Myelocytes % 0; Promyelocytes % 0; Reactive Lymphocytes 0; Sodium 131 mmol/L (136-145)
[2024-09-23 07:03] LABS: Alkaline Phosphatase 303 U/L (46-116); Aspartate Aminotransferase 69 U/L (13-40)
[2024-09-23] MEDS: VANCOMYCIN 1GM/250mL NS or D5W KIT IV SCH (07:23)
[2024-09-23] MEDS: SODIUM CHLORIDE 0.9% 500 ML IV ONE (07:23)
[2024-09-23 08:12] VITALS: PULSE 137; RESP 15; O2SAT 97
[2024-09-23 08:38] LABS: Band Neutrophils % (manual) 2; Lymphocytes % (manual) 10 (10.0-50.0); Monocytes % (manual) 7 (0-12); Platelet Estimate Increased
[2024-09-23 08:39] LABS: Hypochromia Slight
[2024-09-23 10:38] LABS: COVID19 ANTIGEN SOFIA FIA NEGATIVE (NEGATIVE)
[2024-09-23 10:40] LABS: Rapid Influenza A Negative (Negative); Rapid Influenza B Negative (Negative)
[2024-09-23 13:23] LABS: Urine Bacteria None Seen /hpf (None Seen)
[2024-09-23 13:37] LABS: Opiate Scree,Urine Pos (NEGATIVE); Urine Blood Negative /uL (Negative); Urine Budding Yeast OCCASIONAL /hpf (None Seen); Urine Clarity Clear (Clear); Urine Color Yellow (Yellow); Urine Mucus FEW (None Seen); Urine Protein, UAD 1+ (Negative); Urine Specific Gravity 1.036 (1.001-1.035); Urine Squamous Epithelial Cell FEW /hpf (<5); Urine Urobilinogen Normal (Negative); Urine WBC 27 /HPF (0-5); Urine pH 6.5 (5.0-9.0)
[2024-09-23 13:40] LABS: Amphetamine Screen, Urine Neg (NEGATIVE); Barbiturate Scree,Urine Neg (NEGATIVE); Benzodiazephine Screen, Urine Neg (NEGATIVE); Cannabinoid Screen, Urine Neg (NEGATIVE); Cocaine Screen, Urine Neg (NEGATIVE); Phencyclidine Screen, Urine Neg (NEGATIVE)
[2024-09-23] MEDS: MEROPENEM 1GM IVPB 50 ML IV SCH (14:21)
[2024-09-23] MEDS: KETOROLAC TROMETH 30 MG/ML 1ML VIAL IV PRN (16:33)
--- NOTE | 2024-09-23 17:18 | DVHPNRES ---
Progress Note Date Seen: Sep 23, 2024 Resident Creating Document: JAY VALENZUELA RESIDENT Medical Necessity Reason Pt with a Central, PICC or Fol: No Subjective Review of Systems This is a 39-year-old female with past medical history of asthma, cervical cancer (status post surgery in 2022 with hysterectomy and removal of urinary bladder), idiopathic intracranial hypertension, uses oxygen for told sleep apnea since 5 months (but has not performed sleep study) came to the hospital due to Palpitation. Patient heart rate was 140s, the patient was recently discharged from the hospital 3-4 days ago after being treated for pneumonia, on discharge patient was taking prednisone, doxycycline and ciprofloxacin. The patient also complains of abdominal pain pain is mostly on the right upper abdomen, patient also reports she is having diarrhea for last 2 days, with watery stool and no blood, she described the pain is 6-7 /10, with no radiation, nothing makes the pain better. Previous admission CT angio showed bilateral numerous pulmonary nodule may be metastatic nodule with bilateral prominent hilar node nonspecific may be reactive versus metastatic and CT abdomen CT demonstrated diffuse heterogenicity of the liver which may reflect metastatic disease and extensive nodularity in the lower bases with associated fat stranding possibly related to metastatic disease. The patient was not taking any chemotherapy because she prefers holistic treatment and not following with oncologist or [facility]. Tumor marker CA 125 was 4380 and CEA and CA 19-9 were normal. Patient did not have any insight about her condition of cancer and didn't want to discuss about the condition of the cancer. The patient was seen and examined on the bedside. She is alert, Oriented x3. Complaint of abdominal pain and palpitation. No other active complaint. Constitutional: No: Fever, Chills, Sweats, Weakness, Malaise, Other Eyes: No: Pain, Vision change, Conjunctivae inflammation, Eyelid inflammation, Other, Redness ENT: No: Ear pain, Ear discharge, Nose pain, Nose discharge, Nose congestion, Mouth pain, Mouth swelling, Throat pain, Throat swelling, Other Respiratory: Shortness of breath, improving No: Cough, Dry,Wheezing, Hemoptysis, Pleuritic Pain, Sputum, Wheezing, Other Cardiovascular: Palpitation, No: Chest Pain, Orthopnea, Paroxysmal Noc. Dyspnea, Edema, Lt Headedness, Other Gastrointestinal: Abdominal pain, Diarrhoea, No: Nausea, Vomiting, Constipation, Melena, Hematochezia, Other Musculoskeletal: No: other, neck pain, shoulder pain, arm pain, back pain, hand pain, leg pain, foot pain Neurological:; No: Weakness, Numbness, Incoordination, Change in speech, Confusion, Seizures Objective vital signs Vital Sign Date Time Temp Pulse Resp B/P (MAP) Pulse Ox O2 Delivery O2 Flow Rate FiO2 09/23/24 16:00 97 32 95/43 (60) 100 09/23/24 08:12 Nasal Cannula* 4 36 09/23/24 07:30 98.5 98.5 Total Intake and Output 09/22/24 09/22/24 09/23/24 15:00 23:00 07:00 Intake Total 850 ml Balance 850 ml medications Current Medications Medications Dose Ordered Sig/Cathy Route Start Time Stop Time Status Last Admin Dose Admin Sodium Chloride 10 ml Q8HR IV 09/23/24 06:00 09/23/24 14:18 10 ML Ondansetron HCl 4 mg Q4HP PRN IV 09/23/24 06:00 Vancomycin HCl 0 ml @ 0 mls/hr UD IV 09/23/24 07:00 Meropenem 50 ml @ 17 mls/hr Q8HR IV 09/23/24 14:00 09/23/24 14:21 17 MLS/HR Vancomycin HCl 250 ml @ 200 mls/hr Q12H IV 09/23/24 21:00 Ketorolac Tromethamine 15 mg Q6HPRN PRN IV 09/23/24 16:00 09/28/24 15:59 09/23/24 16:33 15 MG Examination Physical examination: General Appearance: Alert, Oriented X3, Cooperative, No acute distress HEENT: Atraumatic, PERRLA, EOMI, Mucous membrane moist/pink Respiratory: Clear to auscultation, Normal air movement Cardiovascular: Regular rate, Normal S1, Normal S2, No murmurs, no chest wall tenderness Abdominal: Tenderness in the rt hypochondriac region, Urostomy bag, Normal bowel sounds, Soft, No hepatospenomegaly, No masses Extremities: No clubbing, No cyanosis, No edema, Normal pulses, No tenderness/swelling Skin: No rashes, No breakdown, No significant lesion Neuro: Normal gait, Normal speech, Strength at 5/5 X4 ext, Normal tone, Sensation intact, grossly intact cranial nerves. Psych/Mental Status: Mental status NL, Mood NL laboratory and microbiology Laboratory Tests 09/23/24 06:15 Test 09/23/24 06:15 Range/Units Serum Glucose 114 H 74-106 mg/dL Labs and/or images reviewed: Labs reviewed by me, Image(s) reviewed by me Problem List/Assessment/Plan Problem List/Assessment/Plan Assessment/Plan # Sepsis, likely due to Gastroentritis - Chest x-ray showed No cardio pulmonary disease - CT shows bilateral numerous pulmonary nodule, maybe metastatic nodule - Empiric antibiotics of Meropenem and vencomycine - IV fluid bolus given -Previous H/O ESBL - U/A normal - Pending blood and urine culture, C-diff toxin assay, stool studies - IV vancomycin as per pharmacy and IV meropenem Q 8 hours - IV toradol 15 mg Q 8 hours p.r.n. - IV ondansetron 4 mg Q 8 p.r.n. 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 # chronic 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 ruled out GI bleeding - stool occult blood negative # Thrombocytosis, likely reactive - Monitoring DIET: regular DVT PROPHYLAXIS: Hold due to the possibility of bleeding CODE STATUS: Goal of care discussed for more than 21 minutes, full code DISPOSITION: Telemetry Plan discussed with: Patient, Other My Orders My Orders Orders - JAY VALENZUELA Procedure Category Date Status Time Communication Order ORDERS 09/23/24 Transmitted 08:32 Stool Wbc LAB 09/23/24 Logged 12:07 Stool Bacterial YAMIL 09/23/24 Uncollected Culture 12:07 Ketorolac Injection PHA 09/23/24 In Process (Toradol Injection) 16:00 Date of Service: Sep 23, 2024 Billing Provider: JANY EASTON MD Common Visit Codes: [id number] INP/OBS CARE(HIGH) JAY VALENZUELA Sep 23, 2024 17:18 JANY EASTON MD Sep 25, 2024 00:27
[2024-09-23 18:01] VITALS: BP 97/38; PULSE 80; RESP 18; TEMP 97.9; O2SAT 98
[2024-09-23 20:00] VITALS: PULSE 83; PULSE 88; RESP 18; O2SAT 100
[2024-09-23 21:00] VITALS: BP 97/51; PULSE 88; RESP 18; TEMP 97.7; O2SAT 100
[2024-09-23] MEDS: VANCOMYCIN 1.25GM/250ML 250 ML IV SCH (21:28)
[2024-09-23] MEDS: MORPHINE SULFATE INJ 2 MG/ml SYRG IV ONE (22:31)
[2024-09-24] VITALS (9 sets, daily range): BP systolic 90–101; BP diastolic 51–60; PULSE 80–96; RESP 13–19; TEMP 97.3–99.5; O2SAT 94–100
[2024-09-24 07:51] LABS: Alanine Aminotransferase 32 U/L (7-40); Albumin 2.7 g/dL (3.2-4.8); Alkaline Phosphatase 232 U/L (46-116); Anion Gap 12 (5-15); Aspartate Aminotransferase 61 U/L (13-40); BUN/Creatinine Ratio 22.2 (10.0-20.0); Bilirubin, Total 0.9 mg/dL (0.2-1.0); Blood Urea Nitrogen 10 mg/dL (9-23); Calcium 8.9 mg/dL (8.7-10.4); Carbon Dioxide 24 mmol/L (20-31); Chloride 99 mmol/L (98-107); Glucose 71 mg/dL (74-106); Potassium 3.6 mmol/L (3.5-5.1); Sodium 135 mmol/L (136-145)
[2024-09-24 07:52] LABS: Total Protein 5.2 g/dL (5.7-8.2)
[2024-09-24 10:55] LABS: Basophils # (auto) 0.1 10 ^3/uL (0-0.2); Basophils % (auto) 0.2 % (0.0-2.0); Eosinophils # (auto) 0.2 10 ^3/uL (0-0.8); Eosinophils % (auto) 0.9 % (0.0-7.0); Hematocrit 25.3 % (36.0-46.0); Hemoglobin 7.7 g/dL (12.2-16.2); Lymphocytes # (auto) 1.1 10 ^3/uL (0.4-5.4); Lymphocytes % (auto) 4.8 % (10.0-50.0); Mean Corpuscular Hemoglobin 23.4 pg (28.0-32.0); Mean Corpuscular Hgb Conc. 30.5 g/dL (32.0-36.0); Mean Corpuscular Volume 76.5 fL (80.0-100.0); Monocytes # (auto) 0.9 10 ^3/uL (0-1.3); Monocytes % (auto) 3.6 % (0.0-12.0); Neutrophils # (auto) 21.8 10 ^3/uL (1.6-8.6); Neutrophils % (auto) 90.5 % (37.0-80.0); Platelet Count (auto) 383 10^3/uL (140-450); Red Cell Distribution Width 22.2 % (11.8-14.3)
--- NOTE | 2024-09-24 15:44 | DVHPNRES ---
Progress Note Date Seen: Sep 24, 2024 Resident Creating Document: JAY VALENZUELA RESIDENT Medical Necessity Reason Pt with a Central, PICC or Fol: No Subjective Review of Systems This is a 39-year-old female with past medical history of asthma, cervical cancer (status post surgery in 2022 with hysterectomy and removal of urinary bladder), idiopathic intracranial hypertension, uses oxygen for told sleep apnea since 5 months (but has not performed sleep study) came to the hospital due to Palpitation. Patient heart rate was 140s, the patient was recently discharged from the hospital 3-4 days ago after being treated for pneumonia, on discharge patient was taking prednisone, doxycycline and ciprofloxacin. The patient also complains of abdominal pain pain is mostly on the right upper abdomen, patient also reports she is having diarrhea for last 2 days, with watery stool and no blood, she described the pain is 6-7 /10, with no radiation, nothing makes the pain better. Previous admission CT angio showed bilateral numerous pulmonary nodule may be metastatic nodule with bilateral prominent hilar node nonspecific may be reactive versus metastatic and CT abdomen CT demonstrated diffuse heterogenicity of the liver which may reflect metastatic disease and extensive nodularity in the lower bases with associated fat stranding possibly related to metastatic disease. The patient was not taking any chemotherapy because she prefers holistic treatment and not following with oncologist or [facility]. Tumor marker CA 125 was 4380 and CEA and CA 19-9 were normal. Patient did not have any insight about her condition of cancer and didn't want to discuss about the condition of the cancer. Patient was seen and examined on the bedside. She is alert oriented x3. complaint of mild abdominal pain and per vaginal pinkish discharge. No other active complaint. Objective vital signs Vital Sign Date Time Temp Pulse Resp B/P (MAP) Pulse Ox O2 Delivery O2 Flow Rate FiO2 09/24/24 12:23 97.3 80 16 90/60 (70) 97 97.3 09/24/24 08:06 Nasal Cannula* 2 28 Total Intake and Output 09/23/24 09/23/24 09/24/24 15:00 23:00 07:00 Intake Total 1000 ml 300 ml 500 ml Output Total 900 ml 1000 ml 550 ml Balance 100 ml -700 ml -50 ml medications Current Medications Medications Dose Ordered Sig/Cathy Route Start Time Stop Time Status Last Admin Dose Admin Sodium Chloride 10 ml Q8HR IV 09/23/24 06:00 2/4/25 14:32 10 ML Ondansetron HCl 4 mg Q4HP PRN IV 09/23/24 06:00 Vancomycin HCl 0 ml @ 0 mls/hr UD IV 09/23/24 07:00 Meropenem 50 ml @ 17 mls/hr Q8HR IV 09/23/24 14:00 09/24/24 14:33 17 MLS/HR Vancomycin HCl 250 ml @ 200 mls/hr Q12H IV 09/23/24 21:00 09/24/24 08:43 200 MLS/HR Ketorolac Tromethamine 15 mg Q6HPRN PRN IV 09/23/24 16:00 09/28/24 15:59 09/24/24 14:33 15 MG Examination Physical examination: General Appearance: Alert, Oriented X3, Cooperative, No acute distress HEENT: Atraumatic, PERRLA, EOMI, Mucous membrane moist/pink Respiratory: Clear to auscultation, Normal air movement Cardiovascular: Regular rate, Normal S1, Normal S2, No murmurs, no chest wall tenderness Abdominal: Tenderness in the rt hypochondriac region, Urostomy bag, Normal bowel sounds, Soft, No hepatospenomegaly, No masses Extremities: No clubbing, No cyanosis, No edema, Normal pulses, No tenderness/swelling Skin: No rashes, No breakdown, No significant lesion Neuro: Normal gait, Normal speech, Strength at 5/5 X4 ext, Normal tone, Sensation intact, grossly intact cranial nerves. Psych/Mental Status: Mental status NL, Mood NL laboratory and microbiology Laboratory Tests 09/24/24 10:00 09/24/24 05:34 Test 09/24/24 05:34 Range/Units Serum Glucose 71 L 74-106 mg/dL Microbiology Date/Time Source Procedure Growth Status 09/23/24 20:42 Nose MRSA Screen - Final Complete 09/23/24 08:36 Blood Blood Culture - Preliminary NO GROWTH AFTER 24 HOURS OF INCUBATION. Resulted Labs and/or images reviewed: Labs reviewed by me, Image(s) reviewed by me Problem List/Assessment/Plan Problem List/Assessment/Plan Assessment/Plan # Sepsis, likely due to Gastroenteritis - Chest x-ray showed No cardio pulmonary disease - CT shows bilateral numerous pulmonary nodule, maybe metastatic nodule - Empiric antibiotics of Meropenem and vancomycin - IV fluid bolus given - Previous H/O ESBL - U/A normal - Blood c/s preliminary report revealed no growth in 24 hours of incubation - Pending urine culture, C-diff toxin assay, stool studies - IV vancomycin as per pharmacy and IV meropenem Q 8 hours - IV toradol 15 mg Q 8 hours p.r.n. - IV ondansetron 4 mg Q 8 p.r.n. 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 # chronic 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 ruled out GI bleeding - stool occult blood negative - Ordered iron panel and ferritin. # Thrombocytosis, likely reactive - Monitoring DIET: regular DVT PROPHYLAXIS: Hold due to the possibility of bleeding CODE STATUS: Goal of care discussed for more than 21 minutes, full code DISPOSITION: Telemetry Plan discussed with: Patient, Other My Orders My Orders Orders - JAY VALENZUELA Procedure Category Date Status Time Ketorolac Injection PHA 09/23/24 In Process (Toradol Injection) 16:00 Full Liq Diet DIET 09/24/24 Transmitted Breakfast Iron Panel LAB 09/24/24 In Process 15:22 Ferritin LAB 09/24/24 In Process 15:22 Date of Service: Sep 24, 2024 Billing Provider: JANY EASTON MD Common Visit Codes: [id number] INP/OBS CARE(HIGH) AJY VALENZUELA Sep 24, 2024 15:44 JANY EASTON MD Sep 25, 2024 00:35
[2024-09-24] MEDS: HYDROcodone-ACET 7.5/325MG TAB PO PRN (18:14)
[2024-09-25] VITALS (9 sets, daily range): BP systolic 90–116; BP diastolic 49–73; PULSE 84–123; RESP 13–18; TEMP 97.7–99.1; O2SAT 96–99
[2024-09-25 10:53] LABS: Basophils # (auto) 0.1 10 ^3/uL (0-0.2); Eosinophils # (auto) 0.2 10 ^3/uL (0-0.8); Eosinophils % (auto) 0.7 % (0.0-7.0); Neutrophils # (auto) 22.2 10 ^3/uL (1.6-8.6)
[2024-09-25 10:56] LABS: Basophils % (auto) 0.5 % (0.0-2.0); Hematocrit 28.2 % (36.0-46.0); Hemoglobin 8.4 g/dL (12.2-16.2); Lymphocytes % (auto) 4.1 % (10.0-50.0); Mean Corpuscular Hemoglobin 22.9 pg (28.0-32.0); Mean Corpuscular Hgb Conc. 29.9 g/dL (32.0-36.0); Mean Corpuscular Volume 76.7 fL (80.0-100.0); Monocytes # (auto) 1.1 10 ^3/uL (0-1.3); Monocytes % (auto) 4.5 % (0.0-12.0); Neutrophils % (auto) 90.2 % (37.0-80.0); Nucleated Red Blood Cells % 0.1 %; Platelet Count (auto) 396 10^3/uL (140-450); Red Blood Cells 3.67 10^6/uL (4.0-5.20); Red Cell Distribution Width 22.4 % (11.8-14.3); White Blood Cell 24.6 10^3/uL (4.4-10.8)
[2024-09-25 11:40] LABS: Alanine Aminotransferase 35 U/L (7-40); Anion Gap 9 (5-15); Bilirubin, Total 0.9 mg/dL (0.2-1.0); Carbon Dioxide 21 mmol/L (20-31); Chloride 100 mmol/L (98-107); Glucose 104 mg/dL (74-106)
[2024-09-25 11:41] LABS: Blood Urea Nitrogen 6 mg/dL (9-23); Sodium 130 mmol/L (136-145)
[2024-09-25 11:42] LABS: Albumin 2.7 g/dL (3.2-4.8); Alkaline Phosphatase 324 U/L (46-116); Aspartate Aminotransferase 76 U/L (13-40); Calcium 8.5 mg/dL (8.7-10.4); Total Protein 5.2 g/dL (5.7-8.2)
--- NOTE | 2024-09-25 17:01 | DVHPNRES ---
Progress Note Date Seen: Sep 25, 2024 Resident Creating Document: JAY VALENZUELA RESIDENT Medical Necessity Reason Pt with a Central, PICC or Fol: No Subjective Review of Systems This is a 39-year-old female with past medical history of asthma, cervical cancer (status post surgery in 2022 with hysterectomy and removal of urinary bladder), idiopathic intracranial hypertension, uses oxygen for told sleep apnea since 5 months (but has not performed sleep study) came to the hospital due to Palpitation. Patient heart rate was 140s, the patient was recently discharged from the hospital 3-4 days ago after being treated for pneumonia, on discharge patient was taking prednisone, doxycycline and ciprofloxacin. The patient also complains of abdominal pain pain is mostly on the right upper abdomen, patient also reports she is having diarrhea for last 2 days, with watery stool and no blood, she described the pain is 6-7 /10, with no radiation, nothing makes the pain better. Previous admission CT angio showed bilateral numerous pulmonary nodule may be metastatic nodule with bilateral prominent hilar node nonspecific may be reactive versus metastatic and CT abdomen CT demonstrated diffuse heterogenicity of the liver which may reflect metastatic disease and extensive nodularity in the lower bases with associated fat stranding possibly related to metastatic disease. The patient was not taking any chemotherapy because she prefers holistic treatment and not following with oncologist or [facility]. Tumor marker CA 125 was 4380 and CEA and CA 19-9 were normal. Patient did not have any insight about her condition of cancer and didn't want to discuss about the condition of the cancer. Patient was seen and examined on the bedside. She is alert oriented x3. complaint of mild abdominal pain and dribbling of urine. No other active complaint. Ordered CT chest without contrast and patient refused to do the test. Objective vital signs Vital Sign Date Time Temp Pulse Resp B/P (MAP) Pulse Ox O2 Delivery O2 Flow Rate FiO2 09/25/24 16:40 98.4 87 15 96/60 (72) 98 98.4 09/24/24 20:00 Nasal Cannula* 2 28 Total Intake and Output 09/24/24 09/24/24 09/25/24 15:00 23:00 07:00 Intake Total 300 ml 900 ml 450 ml Output Total 1200 ml 650 ml Balance 300 ml -300 ml -200 ml medications Current Medications Medications Dose Ordered Sig/Cathy Route Start Time Stop Time Status Last Admin Dose Admin Sodium Chloride 10 ml Q8HR IV 09/23/24 06:00 09/25/24 15:18 10 ML Ondansetron HCl 4 mg Q4HP PRN IV 09/23/24 06:00 Vancomycin HCl 0 ml @ 0 mls/hr UD IV 09/23/24 07:00 Meropenem 50 ml @ 17 mls/hr Q8HR IV 09/23/24 14:00 09/25/24 15:18 17 MLS/HR Vancomycin HCl 250 ml @ 200 mls/hr Q12H IV 09/23/24 21:00 09/25/24 08:52 200 MLS/HR Acetaminophen/ Hydrocodone Bitart 1 tab Q6HP PRN PO 09/24/24 16:45 09/25/24 10:43 1 TAB Examination Physical examination: General Appearance: Alert, Oriented X3, Cooperative, No acute distress HEENT: Atraumatic, PERRLA, EOMI, Mucous membrane moist/pink Respiratory: Clear to auscultation, Normal air movement Cardiovascular: Regular rate, Normal S1, Normal S2, No murmurs, no chest wall tenderness Abdominal: Tenderness in the rt hypochondriac region, Urostomy bag, Normal bowel sounds, Soft, No hepatospenomegaly, No masses Extremities: No clubbing, No cyanosis, No edema, Normal pulses, No tenderness/swelling Skin: No rashes, No breakdown, No significant lesion Neuro: Normal gait, Normal speech, Strength at 5/5 X4 ext, Normal tone, Sensation intact, grossly intact cranial nerves. Psych/Mental Status: Mental status NL, Mood NL laboratory and microbiology Laboratory Tests 09/25/24 10:11 Test 09/25/24 10:11 Range/Units Serum Glucose 104 74-106 mg/dL Microbiology Date/Time Source Procedure Growth Status 09/24/24 08:43 Stool Stool Culture - Preliminary Resulted 09/24/24 08:43 Stool Shiga Toxin I & II - Final Resulted 09/23/24 20:42 Nose MRSA Screen - Final Complete 09/23/24 12:11 Voided Urine Urine Culture - Preliminary Resulted 09/23/24 08:36 Blood Blood Culture - Preliminary NO GROWTH AFTER 48 HOURS OF INCUBATION. Resulted Labs and/or images reviewed: Labs reviewed by me, Image(s) reviewed by me Problem List/Assessment/Plan Problem List/Assessment/Plan Assessment/Plan # Sepsis, likely due to Gastroentritis - Chest x-ray showed No cardio pulmonary disease - CT shows bilateral numerous pulmonary nodule, maybe metastatic nodule - Empiric antibiotics of Meropenem and vencomycine - IV fluid bolus given -Previous H/O ESBL - U/A normal - Pending blood and urine culture, C-diff toxin assay, stool studies - IV vancomycin as per pharmacy and IV meropenem Q 8 hours - IV toradol 15 mg Q 8 hours p.r.n. - IV ondansetron 4 mg Q 8 p.r.n. # Sinus Tachycardia Due to Sepsis # History of cervical cancer, status post surgery - CT scan shows bilateral numerous pulmonary nodule, possible metastasis - CT abdomen diffuse heterogeneity throughout the liver which may reflect metastatic disease and there is associated mesentery thickening involving the anterior lower pelvis with multiple prominent mesenteric nodules - Ordered CT chest without contrast and patient refused to do the test # Thrombocytosis, likely reactive - Monitoring # Mild hyponatremia, monitoring # Transaminitis without hyperbilirubinemia likely secondary to malignancy # 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 # chronic 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 ruled out GI bleeding - stool occult blood negative # Thrombocytosis, likely reactive - Monitoring DIET: regular DVT PROPHYLAXIS: Hold due to the possibility of bleeding CODE STATUS: Goal of care discussed for more than 21 minutes, full code DISPOSITION: Telemetry Plan discussed with: Patient, Other My Orders My Orders Orders - JAY VALENZUELA Procedure Category Date Status Time Soft Diet DIET 09/25/24 Transmitted Breakfast Date of Service: Sep 25, 2024 Billing Provider: JANY EASTON MD Common Visit Codes: [id number] INP/OBS CARE(HIGH) JAY VALENZUELA Sep 25, 2024 17:01 JANY EASTON MD Oct 01, 2024 09:43
[2024-09-26] VITALS (9 sets, daily range): BP systolic 76–134; BP diastolic 47–82; PULSE 105–120; RESP 18–22; TEMP 97.7–99; O2SAT 94–97
[2024-09-26] MEDS: ONDANSETRON HCL 4 MG/2 ML VIAL IV PRN (06:35)
[2024-09-26 07:36] LABS: Hematocrit 29.3 % (36.0-46.0); Hemoglobin 9.1 g/dL (12.2-16.2); Mean Corpuscular Hemoglobin 23.9 pg (28.0-32.0); Mean Corpuscular Hgb Conc. 31.2 g/dL (32.0-36.0); Mean Corpuscular Volume 76.5 fL (80.0-100.0); Platelet Count (auto) 478 10^3/uL (140-450); Red Blood Cells 3.82 10^6/uL (4.0-5.20)
[2024-09-26 07:40] LABS: Red Cell Distribution Width 21.5 % (11.8-14.3)
[2024-09-26 07:44] LABS: White Blood Cell 30.8 10^3/uL (4.4-10.8)
[2024-09-26 07:46] LABS: Alanine Aminotransferase 31 U/L (7-40); Anion Gap 11 (5-15); BUN/Creatinine Ratio 16.7 (10.0-20.0); Basophils % (manual) 0 (0.0-2.0); Bilirubin, Total 1.2 mg/dL (0.2-1.0); Blast Cells 0; Calcium 9.1 mg/dL (8.7-10.4); Carbon Dioxide 23 mmol/L (20-31); Eosinophils % (manual) 0 (0-7); Glucose 83 mg/dL (74-106); Metamyelocytes % 0; Myelocytes % 0; Potassium 3.8 mmol/L (3.5-5.1); Promyelocytes % 0; Reactive Lymphocytes 0; Total Protein 5.8 g/dL (5.7-8.2)
[2024-09-26 07:53] LABS: Albumin 3.1 g/dL (3.2-4.8); Alkaline Phosphatase 326 U/L (46-116); Aspartate Aminotransferase 72 U/L (13-40); Blood Urea Nitrogen 8 mg/dL (9-23); Chloride 95 mmol/L (98-107); Sodium 129 mmol/L (136-145)
[2024-09-26 08:03] LABS: Band Neutrophils % (manual) 6; Lymphocytes % (manual) 3 (10.0-50.0); Monocytes % (manual) 6 (0-12)
[2024-09-26 08:04] LABS: Anisocytosis Moderate; Hypochromia Slight; Platelet Estimate Increased
--- NOTE | 2024-09-26 12:18 | DVHPNRES ---
Progress Note Date Seen: Sep 26, 2024 Resident Creating Document: JAY VALENZUELA RESIDENT Medical Necessity Reason Pt with a Central, PICC or Fol: No Subjective Review of Systems This is a 39-year-old female with past medical history of asthma, cervical cancer (status post surgery in 2022 with hysterectomy and removal of urinary bladder), idiopathic intracranial hypertension, uses oxygen for told sleep apnea since 5 months (but has not performed sleep study) came to the hospital due to Palpitation. Patient heart rate was 140s, the patient was recently discharged from the hospital 3-4 days ago after being treated for pneumonia, on discharge patient was taking prednisone, doxycycline and ciprofloxacin. The patient also complains of abdominal pain pain is mostly on the right upper abdomen, patient also reports she is having diarrhea for last 2 days, with watery stool and no blood, she described the pain is 6-7 /10, with no radiation, nothing makes the pain better. Previous admission CT angio showed bilateral numerous pulmonary nodule may be metastatic nodule with bilateral prominent hilar node nonspecific may be reactive versus metastatic and CT abdomen CT demonstrated diffuse heterogenicity of the liver which may reflect metastatic disease and extensive nodularity in the lower bases with associated fat stranding possibly related to metastatic disease. The patient was not taking any chemotherapy because she prefers holistic treatment and not following with oncologist or [facility]. Tumor marker CA 125 was 4380 and CEA and CA 19-9 were normal. Patient did not have any insight about her condition of cancer and didn't want to discuss about the condition of the cancer. Patient was seen and examined on the bedside. She is alert oriented x3. complaint of mild abdominal pain and u/s of the liver demonstrated thickened gall bladder without cholelithiasis. Ordered CT chest without contrast and patient refused to do the test. Objective vital signs Vital Sign Date Time Temp Pulse Resp B/P (MAP) Pulse Ox O2 Delivery O2 Flow Rate FiO2 09/26/24 09:00 99.0 118 22 114/54 (74) 96 99.0 09/26/24 08:30 Nasal Cannula* 2 28 Total Intake and Output 09/25/24 09/25/24 09/26/24 15:00 23:00 07:00 Intake Total 300 ml 1250 ml 525 ml Output Total 1600 ml 1050 ml Balance 300 ml -350 ml -525 ml medications Current Medications Medications Dose Ordered Sig/Cathy Route Start Time Stop Time Status Last Admin Dose Admin Sodium Chloride 10 ml Q8HR IV 09/23/24 06:00 09/26/24 06:27 10 ML Ondansetron HCl 4 mg Q4HP PRN IV 09/23/24 06:00 09/26/24 06:35 4 MG Acetaminophen/ Hydrocodone Bitart 1 tab Q6HP PRN PO 09/24/24 16:45 09/26/24 04:46 1 TAB Ceftriaxone Sodium 50 ml @ 100 mls/hr DAILY@09 IV 09/27/24 09:00 Examination Physical examination: General Appearance: Alert, Oriented X3, Cooperative, No acute distress HEENT: Atraumatic, PERRLA, EOMI, Mucous membrane moist/pink Respiratory: Clear to auscultation, Normal air movement Cardiovascular: Regular rate, Normal S1, Normal S2, No murmurs, no chest wall tenderness Abdominal: Tenderness in the rt hypochondriac region, Urostomy bag, Normal bowel sounds, Soft, No hepatospenomegaly, No masses Extremities: No clubbing, No cyanosis, No edema, Normal pulses, No tenderness/swelling Skin: No rashes, No breakdown, No significant lesion Neuro: Normal gait, Normal speech, Strength at 5/5 X4 ext, Normal tone, Sensation intact, grossly intact cranial nerves. Psych/Mental Status: Mental status NL, Mood NL laboratory and microbiology Laboratory Tests 09/26/24 07:02 Test 09/26/24 07:02 Range/Units Serum Glucose 83 74-106 mg/dL Microbiology Date/Time Source Procedure Growth Status 09/24/24 08:43 Stool Stool Culture - Preliminary Resulted 09/24/24 08:43 Stool Shiga Toxin I & II - Final Resulted 09/23/24 20:42 Nose MRSA Screen - Final Complete 09/23/24 12:11 Voided Urine Urine Culture - Preliminary Resulted 09/23/24 08:36 Blood Blood Culture - Preliminary NO GROWTH AFTER 72 HOURS OF INCUBATION. Resulted Labs and/or images reviewed: Labs reviewed by me, Image(s) reviewed by me Problem List/Assessment/Plan Problem List/Assessment/Plan Assessment/Plan # Sepsis, likely due to Gastroentritis - Chest x-ray showed No cardio pulmonary disease - CT shows bilateral numerous pulmonary nodule, maybe metastatic nodule - Empiric antibiotics of Meropenem and vencomycine given and deescalate to IV ceftriaxone - IV fluid bolus given -Previous H/O ESBL - U/A normal - Blood culture, stool studies are negative , C-diff toxin absent. - IV ceftriaxone 1 gm daily. - [place] (7.5/325 mg) q.6 p.r.n. - IV ondansetron 4 mg Q 8 p.r.n. - Liver u/s demonstrated thickened gall bladder # Sinus Tachycardia Due to Sepsis # History of cervical cancer, status post surgery - CT scan shows bilateral numerous pulmonary nodule, possible metastasis - CT abdomen diffuse heterogeneity throughout the liver which may reflect metastatic disease and there is associated mesentery thickening involving the anterior lower pelvis with multiple prominent mesenteric nodules - Ordered CT chest without contrast and patient refused to do the test # Thrombocytosis, likely reactive - Monitoring # Mild hyponatremia, monitoring # Transaminitis without hyperbilirubinemia likely secondary to malignancy # 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 # chronic 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 ruled out GI bleeding - stool occult blood negative # Thrombocytosis, likely reactive - Monitoring DIET: regular DVT PROPHYLAXIS: Hold due to the possibility of bleeding CODE STATUS: Goal of care discussed for more than 21 minutes, full code DISPOSITION: Telemetry Plan discussed with: Patient, Other My Orders My Orders Orders - JAY VALENZUELA Procedure Category Date Status Time * Hematology/Oncology CONS 09/25/24 Transmitted Consult 17:01 Ceftriaxone 1gm/50ml PHA 09/27/24 In Process D5w (Rocephin) 09:00 LIVER US 09/26/24 Taken 09:56 Date of Service: Sep 26, 2024 Billing Provider: JANY EASTON MD Common Visit Codes: [id number] INP/OBS CARE(HIGH) JAY VALENZUELA Sep 26, 2024 12:18 JANY EASTON MD Oct 01, 2024 09:47
--- NOTE | 2024-09-26 12:50 | DVH ---
INDICATION: Rule out cholecystitis TECHNIQUE: Multiple real-time sonographic images of the abdomen were obtained. COMPARISON: None FINDINGS: Liver measures 19 cm. Multiple hypoechoic masses seen throughout the liver measuring up to 6 cm. The gallbladder wall measures 0.7 cm thickened. No gallstones or sludge is seen. No pericholecyst ic fluid is noted. The right kidney measures 10cm. No hydronephrosis. The pancreas is not well visualized due to obscuration from bowel gas. The visualized portions of the IVC and aorta are grossly unremarkable. IMPRESSION: Thickened gallbladder wall. Findings nonspecific. Please correlate with Alk Phos, bilirubin, blood culture, fever, WBC for primary cholecystitis, versu s secondary wall thickening with lipase for pancreatitis, AST/ALT for hepatitis/cirrhosis, BUN/Cr for renal failure, and BNP/albumin for CHF/low protein state. Multiple hypoechoic masses seen throughout the liver measuring up to 6.4 cm. Education
[2024-09-26] MEDS: cefTRIAXone 1GM/50ML D5W 50 ML IV ONE (12:55)
[2024-09-27] VITALS (10 sets, daily range): BP systolic 81–107; BP diastolic 55–68; PULSE 72–132; RESP 16–22; TEMP 97.7–98.8; O2SAT 89–96
[2024-09-27 06:47] LABS: Hematocrit 28.3 % (36.0-46.0); Hemoglobin 8.8 g/dL (12.2-16.2); Mean Corpuscular Hemoglobin 23.7 pg (28.0-32.0); Mean Corpuscular Hgb Conc. 31.3 g/dL (32.0-36.0); Mean Corpuscular Volume 75.9 fL (80.0-100.0); Platelet Count (auto) 395 10^3/uL (140-450); Red Blood Cells 3.72 10^6/uL (4.0-5.20); White Blood Cell 29.3 10^3/uL (4.4-10.8)
[2024-09-27 06:53] LABS: Red Cell Distribution Width 21.9 % (11.8-14.3)
[2024-09-27 06:55] LABS: Basophils % (manual) 0 (0.0-2.0); Blast Cells 0; Metamyelocytes % 0; Myelocytes % 0; Promyelocytes % 0; Reactive Lymphocytes 0
[2024-09-27 07:14] LABS: Alanine Aminotransferase 33 U/L (7-40); Anion Gap 9 (5-15); BUN/Creatinine Ratio 17.4 (10.0-20.0); Bilirubin, Total 0.9 mg/dL (0.2-1.0); Calcium 9.3 mg/dL (8.7-10.4); Carbon Dioxide 26 mmol/L (20-31); Glucose 86 mg/dL (74-106); Potassium 3.9 mmol/L (3.5-5.1)
[2024-09-27 07:20] LABS: Alkaline Phosphatase 324 U/L (46-116); Aspartate Aminotransferase 78 U/L (13-40); Blood Urea Nitrogen 8 mg/dL (9-23); Chloride 94 mmol/L (98-107); Sodium 129 mmol/L (136-145); Total Protein 5.6 g/dL (5.7-8.2)
[2024-09-27] MEDS: SODIUM CHLORIDE 0.9% 1,000 ML IV ONE (08:35)
[2024-09-27 08:43] LABS: Band Neutrophils % (manual) 4; Eosinophils % (manual) 1 (0-7); Hypochromia Moderate; Lymphocytes % (manual) 5 (10.0-50.0); Monocytes % (manual) 6 (0-12)
[2024-09-27 08:44] LABS: Anisocytosis Slight; Platelet Estimate Adequate
[2024-09-27] MEDS: cefTRIAXone 1GM/50ML D5W 50 ML IV SCH (13:20)
--- NOTE | 2024-09-27 14:39 | DVHDSRES ---
Discharge Summary Date of Admission Resident Creating Document: JAY VALENZEULA RESIDENT Sep 23, 2024 at 06:00 Date of Discharge: Sep 27, 2024 Labs/Diagnostic Data: Laboratory Results Test 09/27/24 05:23 09/26/24 07:02 09/25/24 10:11 09/24/24 10:00 White Blood Count 29.3 10^3/uL (4.4-10.8) Red Blood Count 3.72 10^6/uL (4.0-5.20) Hemoglobin 8.8 g/dL (12.2-16.2) Hematocrit 28.3 % (36.0-46.0) Mean Corpuscular Volume 75.9 fL (80.0-100.0) Mean Corpuscular Hemoglobin 23.7 pg (28.0-32.0) Mean Corpuscular Hemoglobin Concent 31.3 g/dL (32.0-36.0) Red Cell Distribution Width 21.9 % (11.8-14.3) Platelet Count 395 10^3/uL (140-450) Mean Platelet Volume 8.1 fL (6.9-10.8) Neutrophils (%) (Auto) % (37.0-80.0) Lymphocytes (%) (Auto) % (10.0-50.0) Monocytes (%) (Auto) % (0.0-12.0) Basophils (%) (Auto) % (0.0-2.0) Neutrophils # (Auto) 10 ^3/uL (1.6-8.6) Lymphocytes # (Auto) 10 ^3/uL (0.4-5.4) Monocytes # (Auto) 10 ^3/uL (0-1.3) Differential Total Cells Counted 100.0 (100) Neutrophils % (Manual) 84 (37.0-80.0) Band Neutrophils % (Manual) 4 Lymphocytes % (Manual) 5 (10.0-50.0) Monocytes % (Manual) 6 (0-12) Eosinophils % (Manual) 1 (0-7) Basophils % (Manual) 0 (0.0-2.0) Metamyelocytes % (manual) 0 Myelocytes % (Manual) 0 Promyelocytes % (Manual) 0 Blast Cells % (Manual) 0 Reactive Lymphocytes 0 Platelet Estimate Adequate Hypochromasia (manual) Moderate Anisocytosis (manual) Slight Microcytosis Slight Sodium Level 129 mmol/L (136-145) Potassium Level 3.9 mmol/L (3.5-5.1) Chloride Level 94 mmol/L (98-107) Carbon Dioxide Level 26 mmol/L (20-31) Anion Gap 9 (5-15) Blood Urea Nitrogen 8 mg/dL (9-23) Creatinine 0.46 mg/dL (0.550-1.02) Glomerular Filtration Rate Calc 126 mL/min (>90) BUN/Creatinine Ratio 17.4 (10.0-20.0) Serum Glucose 86 mg/dL (74-106) Calcium Level 9.3 mg/dL (8.7-10.4) Total Bilirubin 0.9 mg/dL (0.2-1.0) Aspartate Amino Transferase (AST) 78 U/L (13-40) Alanine Aminotransferase (ALT) 33 U/L (7-40) Alkaline Phosphatase 324 U/L (46-116) Total Protein 5.6 g/dL (5.7-8.2) Albumin 3.0 g/dL (3.2-4.8) Vancomycin Level Trough 12.3 ug/mL (5-10) Eosinophils (%) (Auto) 0.7 % (0.0-7.0) Eosinophils # (Auto) 0.2 10 ^3/uL (0-0.8) Basophils # (Auto) 0.1 10 ^3/uL (0-0.2) Nucleated Red Blood Cells 0.1 % Iron Level 12 ug/dL (50-170) Total Iron Binding Capacity 134 ug/dL (250-425) Percent Iron Saturation 9.0 % (15-50) Ferritin 739.9 ng/mL (10-291) Test 09/24/24 08:43 09/23/24 12:11 09/23/24 10:21 09/23/24 09:29 Stool for White Cells None seen Urine Color Yellow (Yellow) Urine Clarity Clear (Clear) Urine pH 6.5 (5.0-9.0) Urine Specific [place] 1.036 (1.001-1.035) Urine Protein 1+ (Negative) Urine Ketones Negative (Negative) Urine Blood Negative /uL (Negative) Urine Nitrite Negative (Negative) Urine Bilirubin Negative (Negative) Urine Urobilinogen Normal mg/dL (Negative) Urine Leukocyte Esterase Negative /uL (Negative) Urine RBC 7 /hpf (0 - 4) Urine Microscopic WBC 27 /HPF (0-5) Urine Squamous Epithelial Cells Few /hpf (<5) Urine Bacteria None seen /hpf (None Seen) Urine Mucus Few (None Seen) Urine Yeast (Budding) Occasional /hpf (None Urine Glucose Normal mg/dL (Normal) Urine Opiates Screen Pos (NEGATIVE) Urine Fentanyl Screen Pos (NEGATIVE) Urine Barbiturates Screen Neg (NEGATIVE) Urine Phencyclidine Screen Neg (NEGATIVE) Urine Amphetamines Screen Neg (NEGATIVE) Urine Benzodiazepines Screen Neg (NEGATIVE) Urine Cocaine Screen Neg (NEGATIVE) Urine Cannabinoids Screen Neg (NEGATIVE) Lactic Acid Level 1.7 mmol/L (0.4-2.0) Influenza Type A Antigen Negative (Negative) Influenza Type B Antigen Negative (Negative) SARS-CoV-2 Antigen (Rapid) Negative (NEGATIVE) Test 09/23/24 00:27 09/22/24 23:16 Troponin I High Sensitivity < 3 ng/L (</=34) Large Platelets Few Stomatocytes Few Prothrombin Time 13.3 sec (9.3-11.8) Prothrombin Time INR 1.29 (0.9-1.15) Activated Partial Thromboplast Time 29.3 SEC (24.5-34.5) B-Type Natriuretic Peptide 29.86 pg/mL (0-100) Lipase 22 U/L (12-53) Beta HCG, Quantitative 2.8 mIU/mL (1.5-4.2) Other Laboratory Tests 09/27/24 05:23 Brief Hx & Hospital Course: # Sepsis/ SIRS, likely due to Gastroentritis # Asymptomatic sinus Tachycardia, hypotension and leucocytosis likely secondary to malignancy # Ruled out infectious etiology # History of cervical cancer, status post surgery # Thrombocytosis, likely reactive # Mild hyponatremia # Transaminitis without hyperbilirubinemia likely secondary to malignancy # 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 # chronic 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 ruled out GI bleeding # Moderate protein calorie malnutrition secondary to malignancy. Final Diagnosis/Problems List # Sepsis/ SIRS, likely due to Gastroentritis # Asymptomatic sinus Tachycardia, hypotension and leucocytosis likely secondary to malignancy # Ruled out infectious etiology # History of cervical cancer, status post surgery # Thrombocytosis, likely reactive # Mild hyponatremia # Transaminitis without hyperbilirubinemia likely secondary to malignancy # 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 # chronic 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 ruled out GI bleeding # Moderate protein calorie malnutrition secondary to malignancy. Discharge Disposition: Home Discharge Instruct/Medications Diet: Regular Activity: No Restrictions, As Tolerated Follow Up/Referral: Follow up with outpatient oncology in 1 week Follow up with DC clinic in 1 week. Medications: Augmentin 875 mg bid for 5 days. Discharge Statement: "Patient was advised to return to the ER or call 911 if any headaches, dizziness, shortness of breath, chest pain, abdominal pain, bleeding, fevers, or worsening of medical condition. Patient was counseled about treatment plan, medications, possible side effects, patientverbalized understanding. All questions were answered to the best of my ability. This discharge took greater then 30 minutes in planning, reviewing documentation, counseling the patient, and discussing with other team members." ASSESSMENT ASSESSMENT Assessment # Sepsis/ SIRS, likely due to Gastroentritis # Asymptomatic sinus Tachycardia, hypotension and leucocytosis likely secondary to malignancy # Ruled out infectious etiology # History of cervical cancer, status post surgery # Thrombocytosis, likely reactive # Mild hyponatremia # Transaminitis without hyperbilirubinemia likely secondary to malignancy # 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 # chronic 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 ruled out GI bleeding # Moderate protein calorie malnutrition secondary to malignancy. JAY VALENZUELA RESIDENT Sep 27, 2024 14:39
--- NOTE | 2024-09-27 18:42 | DVHINCON2 ---
Date of service: Sep 27, 2024 Family History: Patient reports no known family medical history. Allergies: Coded Allergies: Pseudoephedrine (Verified Allergy, Unknown, 06/19/24) Home Meds Active Scripts Alprazolam (Xanax) 0.5 Mg Tb, 1 TAB PO BID PRN for 7 Days, #14 TAB 0 Refills Prov:JANY EASTON MD 09/19/24 Lactulose (Lactulose) 10 Gm/15 Ml Julita, 10 GM PO DAILY for 7 Days, #210 ML Prov:JAY VALENZUELA [facility] 09/19/24 Prednisone (Prednisone) 20 Mg Tab, 40 MG PO DAILY for 3 Days, #5 MG [facility] 09/[facility]/24 Famotidine (PEPCID TABLET) 20 Mg Tb, 1 TAB PO BID for 14 Days, #28 TAB 5 Refills Prov[facility] 09/19/24 Doxycycline Monohydrate (Doxycycline Monohydrate) 100 Mg Cap, 1 CAP PO BID for 5 Days, #10 CAP Prov:JAY VALENZUELA [facility] 09/19/24 Ciprofloxacin Hcl (Ciprofloxacin Hcl) 500 Mg Tab, 1 TAB PO BID for 7 Days, #14 TAB Prov[facility] 09/19/24 Current Medications Current Medications Medications (Trade) Dose Ordered Sig/Cathy Route PRN Reason Start Time Stop Time Status Last Admin Ceftriaxone Sodium 50 ml @ 100 mls/hr DAILY@09 IV 09/27/24 09:00 Metronidazole 100 ml @ 100 mls/hr Q8HR IV 09/27/24 22:00 Vital Signs Vital Signs Date Time Temp Pulse Resp B/P (MAP) Pulse Ox O2 Delivery O2 Flow Rate FiO2 09/27/24 17:00 98.1 98 18 81/55 (64) 91 98.1 09/27/24 08:09 Nasal Cannula* 1 24 Labs/Diagnostic Data Labs Test 09/27/24 05:23 09/26/24 07:02 09/25/24 10:11 09/24/24 10:00 Range/Units White Blood Count 29.3 H 4.4-10.8 10^3/uL Red Blood Count 3.72 L 4.0-5.20 10^6/uL Hemoglobin 8.8 L 12.2-16.2 g/dL Hematocrit 28.3 L 36.0-46.0 % Mean Corpuscular Volume 75.9 L 80.0-100.0 fL Mean Corpuscular Hemoglobin 23.7 L 28.0-32.0 pg Mean Corpuscular Hemoglobin Concent 31.3 L 32.0-36.0 g/dL Red Cell Distribution Width 21.9 H 11.8-14.3 % Platelet Count 395 140-450 10^3/uL Mean Platelet Volume 8.1 6.9-10.8 fL Neutrophils (%) (Auto) 37.0-80.0 % Lymphocytes (%) (Auto) 10.0-50.0 % Monocytes (%) (Auto) 0.0-12.0 % Basophils (%) (Auto) 0.0-2.0 % Neutrophils # (Auto) 1.6-8.6 10 ^3/uL Lymphocytes # (Auto) 0.4-5.4 10 ^3/uL Monocytes # (Auto) 0-1.3 10 ^3/uL Differential Total Cells Counted 100.0 100 Neutrophils % (Manual) 84 H 37.0-80.0 Band Neutrophils % (Manual) 4 Lymphocytes % (Manual) 5 L 10.0-50.0 Monocytes % (Manual) 6 0-12 Eosinophils % (Manual) 1 0-7 Basophils % (Manual) 0 0.0-2.0 Metamyelocytes % (manual) 0 Myelocytes % (Manual) 0 Promyelocytes % (Manual) 0 Blast Cells % (Manual) 0 Reactive Lymphocytes 0 Platelet Estimate Adequate Hypochromasia (manual) Moderate Anisocytosis (manual) Slight Microcytosis Slight Sodium Level 129 L 136-145 mmol/L Potassium Level 3.9 3.5-5.1 mmol/L Chloride Level 94 L 98-107 mmol/L Carbon Dioxide Level 26 20-31 mmol/L Anion Gap 9 5-15 Blood Urea Nitrogen 8 L 9-23 mg/dL Creatinine 0.46 L 0.550-1.02 mg/dL Glomerular Filtration Rate Calc 126 >90 mL/min BUN/Creatinine Ratio 17.4 10.0-20.0 Serum Glucose 86 74-106 mg/dL Calcium Level 9.3 8.7-10.4 mg/dL Total Bilirubin 0.9 0.2-1.0 mg/dL Aspartate Amino Transferase (AST) 78 H 13-40 U/L Alanine Aminotransferase (ALT) 33 7-40 U/L Alkaline Phosphatase 324 H 46-116 U/L Total Protein 5.6 L 5.7-8.2 g/dL Albumin 3.0 L 3.2-4.8 g/dL Vancomycin Level Trough 12.3 H 5-10 ug/mL Eosinophils (%) (Auto) 0.7 0.0-7.0 % Eosinophils # (Auto) 0.2 0-0.8 10 ^3/uL Basophils # (Auto) 0.1 0-0.2 10 ^3/uL Nucleated Red Blood Cells 0.1 % Iron Level 12 L 50-170 ug/dL Total Iron Binding Capacity 134 L 250-425 ug/dL Percent Iron Saturation 9.0 L 15-50 % Ferritin 739.9 H 10-291 ng/mL Test 09/24/24 08:43 09/23/24 12:11 09/23/24 10:21 09/23/24 09:29 Range/Units Stool for White Cells None seen Urine Color Yellow Yellow Urine Clarity Clear Clear Urine pH 6.5 5.0-9.0 Urine Specific [place] 1.036 H 1.001-1.035 Urine Protein 1+ H Negative Urine Ketones Negative Negative Urine Blood Negative Negative /uL Urine Nitrite Negative Negative Urine Bilirubin Negative Negative Urine Urobilinogen Normal Negative mg/dL Urine Leukocyte Esterase Negative Negative /uL Urine RBC 7 0 - 4 /hpf Urine Microscopic WBC 27 H 0-5 /HPF Urine Squamous Epithelial Cells Few <5 /hpf Urine Bacteria None seen None Seen /hpf Urine Mucus Few None Seen Urine Yeast (Budding) Occasional None Seen /hpf Urine Glucose Normal Normal mg/dL Urine Opiates Screen Pos NEGATIVE Urine Fentanyl Screen Pos NEGATIVE Urine Barbiturates Screen Neg NEGATIVE Urine Phencyclidine Screen Neg NEGATIVE Urine Amphetamines Screen Neg NEGATIVE Urine Benzodiazepines Screen Neg NEGATIVE Urine Cocaine Screen Neg NEGATIVE Urine Cannabinoids Screen Neg NEGATIVE Lactic Acid Level 1.7 0.4-2.0 mmol/L Influenza Type A Antigen Negative Negative Influenza Type B Antigen Negative Negative SARS-CoV-2 Antigen (Rapid) Negative NEGATIVE Test 09/23/24 00:27 09/22/24 23:16 Range/Units Troponin I High Sensitivity < 3 L </=34 ng/L Large Platelets Few Stomatocytes Few Prothrombin Time 13.3 H 9.3-11.8 sec Prothrombin Time INR 1.29 H 0.9-1.15 Activated Partial Thromboplast Time 29.3 24.5-34.5 SEC B-Type Natriuretic Peptide 29.86 0-100 pg/mL Lipase 22 12-53 U/L Beta HCG, Quantitative 2.8 1.5-4.2 mIU/mL Microbiology Date/Time Source Procedure Growth Status 09/24/24 08:43 Stool Stool Culture - Preliminary Resulted 09/24/24 08:43 Stool Shiga Toxin I & II - Final Resulted 09/23/24 20:42 Nose MRSA Screen - Final Complete 09/23/24 12:11 Voided Urine Urine Culture - Final Complete 09/23/24 08:36 Blood Blood Culture - Preliminary NO GROWTH AFTER 72 HOURS OF INCUBATION. Resulted Assessment [id number] UPPER ABD PAIN R/O GASTRITIS ENTERITIS CONSERVATIVE HAS METASTATIC CANCER SUPPORTIVE CARE Plan discussed with: Patient SARAH COELHO MD Sep 27, 2024 18:42
--- NOTE | 2024-09-27 18:50 | DVHPNRES ---
Progress Note Date Seen: Sep 27, 2024 Resident Creating Document: JAY VALENZUELA RESIDENT Medical Necessity Reason Pt with a Central, PICC or Fol: No Subjective Review of Systems This is a 39-year-old female with past medical history of asthma, cervical cancer (status post surgery in 2022 with hysterectomy and removal of urinary bladder), idiopathic intracranial hypertension, uses oxygen for told sleep apnea since 5 months (but has not performed sleep study) came to the hospital due to Palpitation. Patient heart rate was 140s, the patient was recently discharged from the hospital 3-4 days ago after being treated for pneumonia, on discharge patient was taking prednisone, doxycycline and ciprofloxacin. The patient also complains of abdominal pain pain is mostly on the right upper abdomen, patient also reports she is having diarrhea for last 2 days, with watery stool and no blood, she described the pain is 6-7 /10, with no radiation, nothing makes the pain better. Previous admission CT angio showed bilateral numerous pulmonary nodule may be metastatic nodule with bilateral prominent hilar node nonspecific may be reactive versus metastatic and CT abdomen CT demonstrated diffuse heterogenicity of the liver which may reflect metastatic disease and extensive nodularity in the lower bases with associated fat stranding possibly related to metastatic disease. The patient was not taking any chemotherapy because she prefers holistic treatment and not following with oncologist or [facility]. Tumor marker CA 125 was 4380 and CEA and CA 19-9 were normal. Patient did not have any insight about her condition of cancer and didn't want to discuss about the condition of the cancer. Patient was seen and examined on the bedside. She is alert oriented x3. complaint of mild abdominal pain and u/s of the liver demonstrated thickened gall bladder without cholelithiasis. Ordered CT chest without contrast and patient refused to do the test. Patient refused IV antibiotics. Mentioned right subcostal pain and surgery was consulted to excluded the possibility of acute abdomen. Objective vital signs Vital Sign Date Time Temp Pulse Resp B/P (MAP) Pulse Ox O2 Delivery O2 Flow Rate FiO2 09/27/24 17:00 98.1 98 18 81/55 (64) 91 98.1 09/27/24 08:09 Nasal Cannula* 1 24 Total Intake and Output 09/26/24 09/26/24 09/27/24 15:00 23:00 07:00 Intake Total 1100 ml 340 ml Output Total 1000 ml 750 ml Balance 100 ml -410 ml medications Current Medications Medications Dose Ordered Sig/Cathy Route Start Time Stop Time Status Last Admin Dose Admin Sodium Chloride 10 ml Q8HR IV 09/23/24 06:00 09/27/24 15:54 10 ML Ondansetron HCl 4 mg Q4HP PRN IV 09/23/24 06:00 09/27/24 16:03 4 MG Acetaminophen/ Hydrocodone Bitart 1 tab Q6HP PRN PO 09/24/24 16:45 09/27/24 15:54 1 TAB Ceftriaxone Sodium 50 ml @ 100 mls/hr DAILY@09 IV 09/27/24 09:00 Metronidazole 100 ml @ 100 mls/hr Q8HR IV 09/27/24 22:00 Pantoprazole Sodium 40 mg BID IV 09/27/24 22:00 UNV Examination Physical examination: General Appearance: Alert, Oriented X3, Cooperative, No acute distress HEENT: Atraumatic, PERRLA, EOMI, Mucous membrane moist/pink Respiratory: Clear to auscultation, Normal air movement Cardiovascular: Regular rate, Normal S1, Normal S2, No murmurs, no chest wall tenderness Abdominal: Mild tenderness in the rt hypochondriac region, Urostomy bag, Normal bowel sounds, Soft, No hepatospenomegaly, No masses Extremities: No clubbing, No cyanosis, No edema, Normal pulses, No tenderness/swelling Skin: No rashes, No breakdown, No significant lesion Neuro: Normal gait, Normal speech, Strength at 5/5 X4 ext, Normal tone, Sensation intact, grossly intact cranial nerves. Psych/Mental Status: Mental status NL, Mood NL laboratory and microbiology Laboratory Tests 09/27/24 05:23 Test 09/27/24 05:23 Range/Units Serum Glucose 86 74-106 mg/dL Microbiology Date/Time Source Procedure Growth Status 09/24/24 08:43 Stool Stool Culture - Preliminary Resulted 09/24/24 08:43 Stool Shiga Toxin I & II - Final Resulted 09/23/24 20:42 Nose MRSA Screen - Final Complete 09/23/24 12:11 Voided Urine Urine Culture - Final Complete 09/23/24 08:36 Blood Blood Culture - Preliminary NO GROWTH AFTER 72 HOURS OF INCUBATION. Resulted Labs and/or images reviewed: Labs reviewed by me, Image(s) reviewed by me Problem List/Assessment/Plan Problem List/Assessment/Plan Assessment/Plan # Sepsis, likely due to Gastroentritis - Chest x-ray showed No cardio pulmonary disease - CT shows bilateral numerous pulmonary nodule, maybe metastatic nodule - Empiric antibiotics of Meropenem and vencomycine given and deescalate to IV ceftriaxone - IV fluid bolus given -Previous H/O ESBL - U/A normal - Blood culture, stool studies are negative , C-diff toxin absent. - IV ceftriaxone 1 gm daily and IV metronidazole 500 mg q 8hr - [place] (7.5/325 mg) q.6 p.r.n. - IV ondansetron 4 mg Q 8 p.r.n. - Liver u/s demonstrated thickened gall bladder - Consulted Surgery to rule out acute abdomen. # Sinus Tachycardia Due to Sepsis # History of cervical cancer, status post surgery - CT scan shows bilateral numerous pulmonary nodule, possible metastasis - CT abdomen diffuse heterogeneity throughout the liver which may reflect metastatic disease and there is associated mesentery thickening involving the anterior lower pelvis with multiple prominent mesenteric nodules - Ordered CT chest without contrast and patient refused to do the test # Thrombocytosis, likely reactive - Monitoring # Mild hyponatremia, monitoring # Transaminitis without hyperbilirubinemia likely secondary to malignancy # 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 # chronic 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 ruled out GI bleeding - stool occult blood negative # Thrombocytosis, likely reactive - Monitoring DIET: regular DVT PROPHYLAXIS: Hold due to the possibility of bleeding CODE STATUS: Goal of care discussed for more than 21 minutes, full code DISPOSITION: Telemetry Plan discussed with Plan discussed with: Patient, Other My Orders My Orders Orders - JAY VALENZUELA Procedure Category Date Status Time Metronidazole PHA 09/27/24 In Process 500mg/100ml (Flagyl 22:00 * Surgical Consult CONS 09/27/24 Transmitted Date of Service: Sep 27, 2024 Billing Provider: JANY EASTON MD Common Visit Codes: [id number] INP/OBS CARE(HIGH) JAY VALENZUELA Sep 27, 2024 18:50 JANY EASTON MD Oct 01, 2024 09:51
[2024-09-27] MEDS: PANTOPRAZOLE 40 MG/10 ML VIAL INJ IV SCH (21:43)
[2024-09-27] MEDS: metroNIDAZOLE 500MG/100ML 100 ML IV SCH (21:43)
--- NOTE | 2024-09-27 23:37 | DVHINCON2 ---
DATE OF CONSULTATION: 09/27/2024 GI PHYSICIAN: Dr. Noah Costa. HISTORY OF PRESENT ILLNESS: This patient is a 39-year-old, coming in with history of asthma, cervical cancer, underwent a hysterectomy, removal of the urinary bladder, and had an ileal conduit created for the ____ placement and she has an ileal conduit for that; and she is currently is complaining of upper abdominal pain. She also had nausea and vomiting with diarrhea and now that is better. PAST MEDICAL HISTORY: No diabetes. Hypertension. PAST SURGICAL HISTORY: As mentioned above. PHYSICAL EXAMINATION: VITAL SIGNS: On examination, she is afebrile, stable signs. HEENT: With no evidence of pallor, cyanosis, or jaundice. NECK: Supple, nontender with no thyromegaly or lymphadenopathy. CHEST AND LUNGS: Clear. HEART: Within normal limits. ABDOMEN: Soft, tender in the upper abdomen. No rebound, and she has an ileal conduit bag in place that is functional. NEUROLOGIC: Not assessed. EXTREMITIES: Unremarkable. CLINICAL IMPRESSION: Abdominal pain, possibly gastritis or gastroenteritis. PLAN: At this point, needs conservative management. No acute surgical intervention is indicated based upon the CAT scan findings, and she also has metastatic disease from possible cervical cancer. So at this point, please manage it conservatively. MD ROSARIO Lucero/HALIMA/HEATHER TID: [id number] RECEIPT: [id number] cc: JAY VALENZUELA
[2024-09-28] VITALS (8 sets, daily range): BP systolic 97–113; BP diastolic 58–72; PULSE 101–127; RESP 16–20; TEMP 97.5–98.9; O2SAT 92–94
[2024-09-28 07:01] LABS: Basophils # (auto) 0.2 10 ^3/uL (0-0.2); Eosinophils # (auto) 0 10 ^3/uL (0-0.8); Eosinophils % (auto) 0.1 % (0.0-7.0)
[2024-09-28 07:06] LABS: Anion Gap 11 (5-15); BUN/Creatinine Ratio 21.4 (10.0-20.0); Calcium 9.4 mg/dL (8.7-10.4); Carbon Dioxide 23 mmol/L (20-31); Glucose 75 mg/dL (74-106); Lipase 19 U/L (12-53); Potassium 4.2 mmol/L (3.5-5.1)
[2024-09-28 07:07] LABS: Alanine Aminotransferase 42 U/L (7-40); Albumin 2.9 g/dL (3.2-4.8); Alkaline Phosphatase 305 U/L (46-116); Amylase < 20 U/L (30-118); Aspartate Aminotransferase 104 U/L (13-40); Bilirubin, Total 0.9 mg/dL (0.2-1.0); Blood Urea Nitrogen 9 mg/dL (9-23); Chloride 93 mmol/L (98-107); Sodium 127 mmol/L (136-145); Total Protein 5.5 g/dL (5.7-8.2)
[2024-09-28 07:12] LABS: Hematocrit 28.9 % (36.0-46.0); Hemoglobin 8.9 g/dL (12.2-16.2); Mean Corpuscular Hemoglobin 23.8 pg (28.0-32.0); Mean Corpuscular Hgb Conc. 30.8 g/dL (32.0-36.0); Mean Corpuscular Volume 77.1 fL (80.0-100.0); Monocytes # (auto) 1.3 10 ^3/uL (0-1.3); Monocytes % (auto) 5.2 % (0.0-12.0); Neutrophils # (auto) 22.7 10 ^3/uL (1.6-8.6); Neutrophils % (auto) 89.7 % (37.0-80.0); Platelet Count (auto) 374 10^3/uL (140-450); Red Blood Cells 3.74 10^6/uL (4.0-5.20); Red Cell Distribution Width 21.3 % (11.8-14.3); White Blood Cell 25.3 10^3/uL (4.4-10.8)
--- NOTE | 2024-09-28 11:09 | DVHPNRES ---
Progress Note Date Seen: Sep 28, 2024 Resident Creating Document: JAY VALENZUELA RESIDENT Medical Necessity Reason Pt with a Central, PICC or Fol: No Subjective Review of Systems This is a 39-year-old female with past medical history of asthma, cervical cancer (status post surgery in 2022 with hysterectomy and removal of urinary bladder), idiopathic intracranial hypertension, uses oxygen for told sleep apnea since 5 months (but has not performed sleep study) came to the hospital due to Palpitation. Patient heart rate was 140s, the patient was recently discharged from the hospital 3-4 days ago after being treated for pneumonia, on discharge patient was taking prednisone, doxycycline and ciprofloxacin. The patient also complains of abdominal pain pain is mostly on the right upper abdomen, patient also reports she is having diarrhea for last 2 days, with watery stool and no blood, she described the pain is 6-7 /10, with no radiation, nothing makes the pain better. Previous admission CT angio showed bilateral numerous pulmonary nodule may be metastatic nodule with bilateral prominent hilar node nonspecific may be reactive versus metastatic and CT abdomen CT demonstrated diffuse heterogenicity of the liver which may reflect metastatic disease and extensive nodularity in the lower bases with associated fat stranding possibly related to metastatic disease. The patient was not taking any chemotherapy because she prefers holistic treatment and not following with oncologist or [facility]. Tumor marker CA 125 was 4380 and CEA and CA 19-9 were normal. Patient did not have any insight about her condition of cancer and didn't want to discuss about the condition of the cancer. Patient was seen and examined on the bedside. She is alert oriented x3. c omplaint of mild abdominal pain and u/s of the liver demonstrated thickened gall bladder without cholelithiasis. Ordered CT chest without contrast and patient refused to do the test. Patient refused IV antibiotics. Mentioned right subcostal pain and surgery was consulted to rule out acute abdomen. Surgery evaluated the patient and recommended NPO and supportive treatment. Objective vital signs Vital Sign Date Time Temp Pulse Resp B/P (MAP) Pulse Ox O2 Delivery O2 Flow Rate FiO2 09/28/24 09:02 98.6 116 16 102/59 (73) 94 98.6 09/27/24 20:00 Nasal Cannula* 2 28 Total Intake and Output 09/27/24 09/27/24 09/28/24 15:00 23:00 07:00 Intake Total 700 ml 700 ml Output Total 350 ml 650 ml Balance 350 ml 50 ml medications Current Medications Medications Dose Ordered Sig/Cathy Route Start Time Stop Time Status Last Admin Dose Admin Sodium Chloride 10 ml Q8HR IV 09/23/24 06:00 09/28/24 06:00 10 ML Ondansetron HCl 4 mg Q4HP PRN IV 09/23/24 06:00 09/27/24 16:03 4 MG Acetaminophen/ Hydrocodone Bitart 1 tab Q6HP PRN PO 09/24/24 16:45 09/28/24 04:45 1 TAB Ceftriaxone Sodium 50 ml @ 100 mls/hr DAILY@09 IV 09/27/24 09:00 Metronidazole 100 ml @ 100 mls/hr Q8HR IV 09/27/24 22:00 09/28/24 04:45 100 MLS/HR Pantoprazole Sodium 40 mg BID IV 09/27/24 22:00 09/28/24 09:59 40 MG Midodrine 10 mg TID@0600,1200,1800 PO 09/28/24 12:00 Examination Physical examination: General Appearance: Alert, Oriented X3, Cooperative, No acute distress HEENT: Atraumatic, PERRLA, EOMI, Mucous membrane moist/pink Respiratory: Clear to auscultation, Normal air movement Cardiovascular: Regular rate, Normal S1, Normal S2, No murmurs, no chest wall tenderness Abdominal: Mild tenderness in the rt hypochondriac region, Urostomy bag, Normal bowel sounds, Soft, Extremities: Swelling of the rt feet, bilateral pedal edema +, No clubbing, No cyanosis, Normal pulses. Skin: No rashes, No breakdown, No significant lesion Neuro: Normal gait, Normal speech, Strength at 5/5 X4 ext, Normal tone, Sensation intact, grossly intact cranial nerves. Psych/Mental Status: Mental status NL, Mood NL laboratory and microbiology Laboratory Tests 09/28/24 05:09 Test 09/28/24 05:09 Range/Units Serum Glucose 75 74-106 mg/dL Microbiology Date/Time Source Procedure Growth Status 09/24/24 08:43 Stool Stool Culture - Final Complete 09/24/24 08:43 Stool Shiga Toxin I & II - Final Complete 09/23/24 20:42 Nose MRSA Screen - Final Complete 09/23/24 12:11 Voided Urine Urine Culture - Final Complete 09/23/24 08:36 Blood Blood Culture - Final NO GROWTH AFTER 5 DAYS OF INCUBATION. Complete Labs and/or images reviewed: Labs reviewed by me, Image(s) reviewed by me Problem List/Assessment/Plan Problem List/Assessment/Plan Assessment/Plan # Sepsis, likely due to Gastroenteritis # Leukocytosis most likely due to sepsis; white blood cell count still more [place] [id number] - Chest x-ray showed No cardio pulmonary disease - CT shows bilateral numerous pulmonary nodule, maybe metastatic nodule - Empiric antibiotics of Meropenem and vancomycin given and deescalate to IV ceftriaxone - IV fluid bolus given -Previous H/O ESBL - U/A normal - Blood culture, stool studies are negative , C-diff toxin absent. - IV ceftriaxone 1 gm daily and IV metronidazole 500 mg q 8hr - [place] (7.5/325 mg) q.6 p.r.n. - IV ondansetron 4 mg Q 8 p.r.n. - Liver u/s demonstrated thickened gall bladder - Surgery evaluated the patient and recommended NPO and supportive treatment. The patient insisted on having diet so was started on full liquid diet. # Sinus Tachycardia Due to Sepsis # History of cervical cancer, status post surgery - CT scan shows bilateral numerous pulmonary nodule, possible metastasis - CT abdomen diffuse heterogeneity throughout the liver which may reflect metastatic disease and there is associated mesentery thickening involving the anterior lower pelvis with multiple prominent mesenteric nodules - Ordered CT chest without contrast and patient refused to do the test # Thrombocytosis, likely reactive - Monitoring # Mild hyponatremia, monitoring # Transaminitis without hyperbilirubinemia likely secondary to malignancy # 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 # Chronic 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; ruled out GI bleeding - stool occult blood negative # Thrombocytosis, likely reactive - Monitoring DIET: Full liquid diet DVT PROPHYLAXIS: Hold due to the possibility of bleeding CODE STATUS: Goal of care discussed for 20 minutes, full code DISPOSITION: Telemetry Plan discussed with Dr. Segura Plan discussed with: Patient, Other (RN) My Orders My Orders Orders - JAY VALENZUELA RESIDENT Procedure Category Date Status Time Metronidazole PHA 09/27/24 In Process 500mg/100ml (Flagyl 22:00 * Surgical Consult CONS 09/27/24 Transmitted Midodrine Tablet PHA 09/28/24 In Process (Proamatine Tablet) 12:00 Addendum Addendum Addendum I was physically present for the [place] portions of the service provided to patient by THE RESIDENT. I have reviewed the documentation, discussed the case with resident and agree with the resident's documentation except as noted. Also the patient's clinical case was discussed with the patient's nurse. This medical document was created using an electronic medical record system with computerized dictation system. Although this document has been carefully reviewed, there might still be some phonetic and typographical errors. These areas are purely typographical due to imperfections of the software programs, and do not reflect any compromise in the patient's medical care. Late signature. Date of Service: Sep 28, 2024 Billing Provider: JASS SEGURA MD Common Visit Codes: [id number] INP/OBS CARE(HIGH) Secondary Visit Codes: [id number] CARE PLAN 30 MINUTES (20 minutes) JAY VALENZUELA RESIDENT Sep 28, 2024 11:09 JASS SEGURA MD Sep 29, 2024 07:14
[2024-09-28] MEDS: MIDODRINE HCL 10 MG TAB PO SCH (12:04)
[2024-09-29] VITALS (12 sets, daily range): BP systolic 104–117; BP diastolic 62–77; PULSE 96–123; RESP 17–21; TEMP 97.4–98.9; O2SAT 92–97
[2024-09-29] MEDS ORDERED: ALBUTEROL SULF 2.5 MG/0.5ML(0.5%) NEB SOLN NEB PRN (05:15)
[2024-09-29 06:12] LABS: Basophils # (auto) 0.1 10 ^3/uL (0-0.2); Basophils % (auto) 0.6 % (0.0-2.0); Eosinophils # (auto) 0 10 ^3/uL (0-0.8); Eosinophils % (auto) 0.1 % (0.0-7.0); Hemoglobin 9.1 g/dL (12.2-16.2); Lymphocytes % (auto) 4.4 % (10.0-50.0); Mean Corpuscular Hemoglobin 24.3 pg (28.0-32.0); Mean Corpuscular Hgb Conc. 31.5 g/dL (32.0-36.0); Mean Corpuscular Volume 77.2 fL (80.0-100.0); Monocytes % (auto) 4.7 % (0.0-12.0); Neutrophils # (auto) 19.7 10 ^3/uL (1.6-8.6); Neutrophils % (auto) 90.2 % (37.0-80.0); Nucleated Red Blood Cells % 0.1 %; Platelet Count (auto) 346 10^3/uL (140-450); Red Blood Cells 3.76 10^6/uL (4.0-5.20); Red Cell Distribution Width 21.8 % (11.8-14.3); White Blood Cell 21.8 10^3/uL (4.4-10.8)
[2024-09-29 06:28] LABS: Potassium 4.3 mmol/L (3.5-5.1)
[2024-09-29 06:29] LABS: Anion Gap 9 (5-15); Calcium 9.6 mg/dL (8.7-10.4); Carbon Dioxide 25 mmol/L (20-31)
[2024-09-29 06:34] LABS: BUN/Creatinine Ratio 20.4 (10.0-20.0); Blood Urea Nitrogen 10 mg/dL (9-23); Chloride 93 mmol/L (98-107); Glucose 100 mg/dL (74-106); Sodium 127 mmol/L (136-145)
[2024-09-29] MEDS: DOCUSATE SOD 100 MG CAP PO SCH (12:29)
[2024-09-29] MEDS: POLYETHYLENE GLYCOL 17 GM PWDR PO ONE (12:29)
--- NOTE | 2024-09-29 12:50 | DVHPNRES ---
Progress Note Date Seen: Sep 29, 2024 Resident Creating Document: DEYSI FRIEDMAN RESIDENT Has the PT tested + for MRSA If YES, has PT been informed?: No Medical Necessity Reason Pt with a Central, PICC or Fol: No Subjective Review of Systems This is a 39-year-old female with past medical history of asthma, cervical cancer (status post surgery in 2022 with hysterectomy and removal of urinary bladder), idiopathic intracranial hypertension, uses oxygen for told sleep apnea since 5 months (but has not performed sleep study) came to the hospital due to Palpitation. Patient heart rate was 140s, the patient was recently discharged from the hospital 3-4 days ago after being treated for pneumonia, on discharge patient was taking prednisone, doxycycline and ciprofloxacin. The patient also complains of abdominal pain pain is mostly on the right upper abdomen, patient also reports she is having diarrhea for last 2 days, with watery stool and no blood, she described the pain is 6-7 /10, with no radiation, nothing makes the pain better. Previous admission CT angio showed bilateral numerous pulmonary nodule may be metastatic nodule with bilateral prominent hilar node nonspecific may be reactive versus metastatic and CT abdomen CT demonstrated diffuse heterogenicity of the liver which may reflect metastatic disease and extensive nodularity in the lower bases with associated fat stranding possibly related to metastatic disease. The patient was not taking any chemotherapy because she prefers holistic treatment and not following with oncologist or [facility]. Tumor marker CA 125 was 4380 and CEA and CA 19-9 were normal. Patient did not have any insight about her condition of cancer and didn't want to discuss about the condition of the cancer. Patient was seen and examined at bedside. The patient is alert and oriented in person, place and time. Today, the patient still refusing IV antibiotics. The patient is complaining of periumbilical abdominal discomfort associated with skin vesicles that were developing in the right flank, which she thinks that is related to the antibiotics. Surgery assessed the patient and determined that there is no need for any acute procedure at this time and recommended conservative management. We spent approximately 50 minutes explaining that her current symptoms could also be related to her cancer aside from any possible infection that could be going on as well. Right lower extremity was swelling significantly compared to the left lower extremity reason why we ordered a right lower extremity venous Doppler ultrasound. We are still pending for results. We will continue current medical management and recommended the patient to see an oncology as an outpatient. Patient stated that she will like to receive treatment from an oncology once he gets discharged from the hospital. ROS Constitutional: Denies weight loss, fever and chills. HEENT: Denies changes in vision and hearing. Respiratory: Denies shortness of breath and cough Cardiovascular: Denies chest discomfort or palpitations GI: Reports mild to moderate abdominal discomfort in the periumbilical region and right flank. : Reports urinary dribbling from the vagina. Denies dysuria or urgency Musculoskeletal: Denies myalgias and joint pain Skin: Reports skin vesicles appearing in the right flank (back). Neurological: Denies dizziness, headache, vision or hearing problems Objective vital signs Vital Sign Date Time Temp Pulse Resp B/P (MAP) Pulse Ox O2 Delivery O2 Flow Rate FiO2 09/29/24 10:42 98.9 119 20 114/73 96 2.0 28 98.9 09/29/24 08:00 Nasal Cannula* Total Intake and Output 09/28/24 09/28/24 09/29/24 15:00 23:00 07:00 Intake Total 300 ml 900 ml Output Total 500 ml 500 ml Balance -200 ml 400 ml medications Current Medications Medications Dose Ordered Sig/Cathy Route Start Time Stop Time Status Last Admin Dose Admin Sodium Chloride 10 ml Q8HR IV 09/23/24 06:00 09/29/24 05:54 10 ML Ondansetron HCl 4 mg Q4HP PRN IV 09/23/24 06:00 09/27/24 16:03 4 MG Acetaminophen/ Hydrocodone Bitart 1 tab Q6HP PRN PO 09/24/24 16:45 09/29/24 08:52 1 TAB Ceftriaxone Sodium 50 ml @ 100 mls/hr DAILY@09 IV 09/27/24 09:00 Metronidazole 100 ml @ 100 mls/hr Q8HR IV 09/27/24 22:00 09/28/24 04:45 100 MLS/HR Pantoprazole Sodium 40 mg BID IV 09/27/24 22:00 09/29/24 12:29 40 MG Midodrine 10 mg TID@0600,1200,1800 PO 09/28/24 12:00 09/29/24 12:29 10 MG Albuterol 1.25 mg Q4HPRN PRN NEB 09/29/24 05:15 Docusate Sodium 100 mg BID PO 09/29/24 10:00 09/29/24 12:29 100 MG Examination Physical Examination General: Patient alert and oriented in person, place and time. Patient following commands. HEENT: Normocephalic, atraumatic, moist mucous membranes Respiratory/pulmonary: Clear lungs bilaterally, no associated crackles or wheezes. Cardiovascular: Normal heart sounds S1 and S2 with no associated murmurs Abdomen: Abdomen nondistended, there is no pain to palpation in any of the abdominal quadrants, no palpable masses. Extremities: There is significant swelling of the right lower extremity, pedal edema extending to the midtibia. Left lower extremity is grossly unremarkable. Peripheral Pulses: 3+ Radial (R). 3+ Radial (L). 3+ Dorsalis pedis (R). 3+ Dorsalis pedis(L) Skin: No rashes or pruritus, there is no sacral edema present at this time. Neurological: Intact cranial nerves with no focal neurologic deficits laboratory and microbiology Laboratory Tests 09/29/24 05:44 Test 09/29/24 05:44 Range/Units Serum Glucose 100 74-106 mg/dL Microbiology Date/Time Source Procedure Growth Status 09/24/24 08:43 Stool Stool Culture - Final Complete 09/24/24 08:43 Stool Shiga Toxin I & II - Final Complete 09/23/24 20:42 Nose MRSA Screen - Final Complete 09/23/24 12:11 Voided Urine Urine Culture - Final Complete 09/23/24 08:36 Blood Blood Culture - Final NO GROWTH AFTER 5 DAYS OF INCUBATION. Complete Labs and/or images reviewed: Labs reviewed by me, Image(s) reviewed by me Problem List/Assessment/Plan Problem List/Assessment/Plan Assessment/Plan Sepsis, likely due to Gastroenteritis? Leukocytosis most likely due to sepsis, could be reactive due to CA -Chest x-ray showed No cardio pulmonary disease -CT shows bilateral numerous pulmonary nodule, maybe metastatic nodule -Empiric antibiotics of Meropenem and vancomycin given and deescalate to IV ceftriaxone -IV fluid bolus given -Previous H/O ESBL -U/A normal -Blood culture, stool studies are negative , C-diff toxin absent. -IV ceftriaxone 1 gm daily and IV metronidazole 500 mg q 8hr, Patient currently reusing antibiotics -Leopold (7.5/325 mg) q.6 p.r.n. -IV ondansetron 4 mg Q 8 p.r.n. -Liver u/s demonstrated thickened gall bladder -Surgery assessed the patient and determine that there is no need for surgical intervention at this time and recommended conservative management. -advance diet to mechanical soft Right lower extremity swelling, R/O DVT -ordered right lower extremity venous Doppler to rule out DVT, results still pending Sinus Tachycardia Due to Sepsis History of cervical cancer, status post surgery -CT scan shows bilateral numerous pulmonary nodule, possible metastasis -CT abdomen diffuse heterogeneity throughout the liver which may reflect metastatic disease and there is associated mesentery thickening involving the anterior lower pelvis with multiple prominent mesenteric nodules -Ordered CT chest without contrast and patient refused to do the test Thrombocytosis, likely reactive -Monitoring Mild hyponatremia, monitoring Transaminitis without hyperbilirubinemia likely secondary to malignancy 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 Segura Plan discussed with: Patient, Other (RN) My Orders My Orders Orders - DEYSI FRIEDMAN Procedure Category Date Status Time Docusate Sodium PHA 09/29/24 In Process Capsule (Colace 10:00 Sequential CHRISTEN 09/29/24 In Process Compression Device 09:54 Rt Lower Dvt US 09/29/24 Taken 11:18 Mechanical Soft Diet DIET 09/29/24 Transmitted Lunch Dietary Evaluation Review Comments: 1) Advance to regular diet when medically feasible 2) If patient remains NPO for more than 7 days, consider EN/TPN to meet at least 75% of estimated needs 3) Continue to current plan of care 4) F/u with oncology Expected Outcomes/Goals: 1) labs to improve 2) GI symptoms to resolve 3) diet to advance 4) f/u in 2-3 days Addendum Addendum Addendum I was physically present for the [place] portions of the service provided to patient by THE RESIDENT. I have reviewed the documentation, discussed the case with resident and agree with the resident's documentation except as noted. Also the patient's clinical case was discussed with the patient's nurse. This medical document was created using an electronic medical record system with computerized dictation system. Although this document has been carefully reviewed, there might still be some phonetic and typographical errors. These areas are purely typographical due to imperfections of the software programs, and do not reflect any compromise in the patient's medical care. Late signature. Date of Service: Sep 29, 2024 Billing Provider: JASS SEGURA MD Common Visit Codes: [id number] INP/OBS CARE(HIGH) DEYSI FRIEDMAN RESIDENT Sep 29, 2024 12:50 JASS SEGURA MD Sep 30, 2024 06:57
--- NOTE | 2024-09-29 13:34 | DVH ---
Right lower extremity venous duplex Clinical History: R/O dvt Comparison: US BILAT LOWER DVT on DOS: 09/16/24 Technique: Duplex Doppler evaluation of the deep venous system of the right lower extremity from the common femo ral vein to the popliteal vein including color Doppler and spectral/pulsed waveform analysis was perf ormed. Findings: The common femoral vein demonstrates appropriate compressibility and waveform variability . There is compressibility/patency of the great saphenous vein at the proximal thigh . The femoral vein demonstrates appropriate compressibility and waveform variability . The deep femoral vein demonstrates appropriate compressibility and waveform variability . The popliteal vein demonstrates appropriate compressibility and waveform variability . There is normal compressibility at the tibioperoneal trunk. Impression: No right femoropopliteal venous thrombosis.
[2024-09-30] VITALS (9 sets, daily range): BP systolic 100–115; BP diastolic 59–76; PULSE 87–120; RESP 19–24; TEMP 97.4–97.9; O2SAT 93–98
[2024-09-30 07:18] LABS: Lymphocytes # (auto) 0.9 10 ^3/uL (0.4-5.4); Mean Corpuscular Hemoglobin 24.5 pg (28.0-32.0); Mean Corpuscular Hgb Conc. 31.1 g/dL (32.0-36.0); Monocytes # (auto) 0.9 10 ^3/uL (0-1.3); Red Blood Cells 3.68 10^6/uL (4.0-5.20)
[2024-09-30 07:24] LABS: Anion Gap 11 (5-15); Blood Urea Nitrogen 9 mg/dL (9-23); Carbon Dioxide 24 mmol/L (20-31); Glucose 81 mg/dL (74-106); Potassium 4.5 mmol/L (3.5-5.1)
[2024-09-30 07:25] LABS: Basophils # (auto) 0 10 ^3/uL (0-0.2); Basophils % (auto) 0.2 % (0.0-2.0); Bilirubin, Total 1.2 mg/dL (0.2-1.0); Eosinophils # (auto) 0.1 10 ^3/uL (0-0.8); Eosinophils % (auto) 0.3 % (0.0-7.0); Lymphocytes % (auto) 4.3 % (10.0-50.0); Mean Corpuscular Volume 78.8 fL (80.0-100.0); Monocytes % (auto) 4.4 % (0.0-12.0); Neutrophils # (auto) 19.5 10 ^3/uL (1.6-8.6); Neutrophils % (auto) 90.8 % (37.0-80.0); Platelet Count (auto) 290 10^3/uL (140-450); Red Cell Distribution Width 21.5 % (11.8-14.3); White Blood Cell 21.5 10^3/uL (4.4-10.8)
[2024-09-30 07:27] LABS: Alanine Aminotransferase 49 U/L (7-40); Albumin 2.8 g/dL (3.2-4.8); Alkaline Phosphatase 397 U/L (46-116); Aspartate Aminotransferase 147 U/L (13-40); Chloride 91 mmol/L (98-107); Sodium 126 mmol/L (136-145); Total Protein 5.4 g/dL (5.7-8.2)
[2024-09-30] MEDS ORDERED: MIDO10TA3 PO (11:32)
[2024-09-30] MEDS: HYDROcodone-ACET 5/325MG TAB PO PRN (11:42)
--- NOTE | 2024-09-30 13:17 | DVHDSRES ---
Discharge Summary Date of Admission Resident Creating Document: DIEGO MELENDEZ RESIDENT Sep 23, 2024 at 06:00 Date of Discharge: Sep 27, 2024 Labs/Diagnostic Data: Laboratory Results Test 09/30/24 05:49 09/28/24 05:09 09/27/24 05:23 09/26/24 07:02 White Blood Count 21.5 10^3/uL (4.4-10.8) Red Blood Count 3.68 10^6/uL (4.0-5.20) Hemoglobin 9.0 g/dL (12.2-16.2) Hematocrit 29.0 % (36.0-46.0) Mean Corpuscular Volume 78.8 fL (80.0-100.0) Mean Corpuscular Hemoglobin 24.5 pg (28.0-32.0) Mean Corpuscular Hemoglobin Concent 31.1 g/dL (32.0-36.0) Red Cell Distribution Width 21.5 % (11.8-14.3) Platelet Count 290 10^3/uL (140-450) Mean Platelet Volume 8.4 fL (6.9-10.8) Neutrophils (%) (Auto) 90.8 % (37.0-80.0) Lymphocytes (%) (Auto) 4.3 % (10.0-50.0) Monocytes (%) (Auto) 4.4 % (0.0-12.0) Eosinophils (%) (Auto) 0.3 % (0.0-7.0) Basophils (%) (Auto) 0.2 % (0.0-2.0) Neutrophils # (Auto) 19.5 10 ^3/uL (1.6-8.6) Lymphocytes # (Auto) 0.9 10 ^3/uL (0.4-5.4) Monocytes # (Auto) 0.9 10 ^3/uL (0-1.3) Eosinophils # (Auto) 0.1 10 ^3/uL (0-0.8) Basophils # (Auto) 0 10 ^3/uL (0-0.2) Nucleated Red Blood Cells 0.0 % Sodium Level 126 mmol/L (136-145) Potassium Level 4.5 mmol/L (3.5-5.1) Chloride Level 91 mmol/L (98-107) Carbon Dioxide Level 24 mmol/L (20-31) Anion Gap 11 (5-15) Blood Urea Nitrogen 9 mg/dL (9-23) Creatinine 0.45 mg/dL (0.550-1.02) Glomerular Filtration Rate Calc 127 mL/min (>90) BUN/Creatinine Ratio 20.0 (10.0-20.0) Serum Glucose 81 mg/dL (74-106) Calcium Level 10.0 mg/dL (8.7-10.4) Total Bilirubin 1.2 mg/dL (0.2-1.0) Aspartate Amino Transferase (AST) 147 U/L (13-40) Alanine Aminotransferase (ALT) 49 U/L (7-40) Alkaline Phosphatase 397 U/L (46-116) Total Protein 5.4 g/dL (5.7-8.2) Albumin 2.8 g/dL (3.2-4.8) Amylase Level < 20 U/L (30-118) Lipase 19 U/L (12-53) Differential Total Cells Counted 100.0 (100) Neutrophils % (Manual) 84 (37.0-80.0) Band Neutrophils % (Manual) 4 Lymphocytes % (Manual) 5 (10.0-50.0) Monocytes % (Manual) 6 (0-12) Eosinophils % (Manual) 1 (0-7) Basophils % (Manual) 0 (0.0-2.0) Metamyelocytes % (manual) 0 Myelocytes % (Manual) 0 Promyelocytes % (Manual) 0 Blast Cells % (Manual) 0 Reactive Lymphocytes 0 Platelet Estimate Adequate Hypochromasia (manual) Moderate Anisocytosis (manual) Slight Microcytosis Slight Vancomycin Level Trough 12.3 ug/mL (5-10) Test 09/24/24 10:00 09/24/24 08:43 09/23/24 12:11 09/23/24 10:21 Iron Level 12 ug/dL (50-170) Total Iron Binding Capacity 134 ug/dL (250-425) Percent Iron Saturation 9.0 % (15-50) Ferritin 739.9 ng/mL (10-291) Stool for White Cells None seen Urine Color Yellow (Yellow) Urine Clarity Clear (Clear) Urine pH 6.5 (5.0-9.0) Urine Specific [place] 1.036 (1.001-1.035) Urine Protein 1+ (Negative) Urine Ketones Negative (Negative) Urine Blood Negative /uL (Negative) Urine Nitrite Negative (Negative) Urine Bilirubin Negative (Negative) Urine Urobilinogen Normal mg/dL (Negative) Urine Leukocyte Esterase Negative /uL (Negative) Urine RBC 7 /hpf (0 - 4) Urine Microscopic WBC 27 /HPF (0-5) Urine Squamous Epithelial Cells Few /hpf (<5) Urine Bacteria None seen /hpf (None Seen) Urine Mucus Few (None Seen) Urine Yeast (Budding) Occasional /hpf (None Urine Glucose Normal mg/dL (Normal) Urine Opiates Screen Pos (NEGATIVE) Urine Fentanyl Screen Pos (NEGATIVE) Urine Barbiturates Screen Neg (NEGATIVE) Urine Phencyclidine Screen Neg (NEGATIVE) Urine Amphetamines Screen Neg (NEGATIVE) Urine Benzodiazepines Screen Neg (NEGATIVE) Urine Cocaine Screen Neg (NEGATIVE) Urine Cannabinoids Screen Neg (NEGATIVE) Lactic Acid Level 1.7 mmol/L (0.4-2.0) Test 09/23/24 09:29 09/23/24 00:27 09/22/24 23:16 Influenza Type A Antigen Negative (Negative) Influenza Type B Antigen Negative (Negative) SARS-CoV-2 Antigen (Rapid) Negative (NEGATIVE) Troponin I High Sensitivity < 3 ng/L (</=34) Large Platelets Few Stomatocytes Few Prothrombin Time 13.3 sec (9.3-11.8) Prothrombin Time INR 1.29 (0.9-1.15) Activated Partial Thromboplast Time 29.3 SEC (24.5-34.5) B-Type Natriuretic Peptide 29.86 pg/mL (0-100) Beta HCG, Quantitative 2.8 mIU/mL (1.5-4.2) Other Laboratory Tests 09/30/24 05:49 Brief Hx & Hospital Course: Abigail Srinivasan is a 39-year-old female with past medical history of asthma, cervical cancer (status post surgery in 2022 with hysterectomy and removal of urinary bladder), idiopathic intracranial hypertension, uses oxygen for told sleep apnea since 5 months (but has not performed sleep study) came to the hospital due to Palpitation. Patient heart rate was 140s, the patient was recently discharged from the hospital 3-4 days ago after being treated for pneumonia, on discharge patient was taking prednisone, doxycycline and ciprofloxacin. The patient also complains of abdominal pain pain is mostly on the right upper abdomen, patient also reports she is having diarrhea for last 2 days, with watery stool and no blood, she described the pain is 6-7 /10, with no radiation, nothing makes the pain better. Previous admission CT angio showed bilateral numerous pulmonary nodule may be metastatic nodule with bilateral prominent hilar node nonspecific may be reactive versus metastatic and CT abdomen CT demonstrated diffuse heterogenicity of the liver which may reflect metastatic disease and extensive nodularity in the lower bases with associated fat stranding possibly related to metastatic disease. The patient was not taking any chemotherapy because she prefers holistic treatment and not following with oncologist or [facility]. Tumor marker CA 125 was 4380 and CEA and CA 19-9 were normal. Patient did not have any insight about her condition of cancer and didn't want to discuss about the condition of the cancer. During the hospitalization, patient was diagnosed with sepsis likely secondary to gastroenteritis. She was started on empiric meropenem and vancomycin, which was later deescalated to IV ceftriaxone and IV metronidazole. Patient was refusing antibiotics multiple times during the hospital stay. CT scan showed bilateral numerous chronic nodules, may be metastatic nodules. Liver ultrasound shows thickened gallbladder. Surgery was consulted and surgeon Dr. Sierra recommended conservative management given the patient has metastatic cancer. Patient white cell count dropped from 30-21. Pancultures were ordered, stool culture was unremarkable, C diff was negative, blood culture was negative. WBC count could be reactive given the patient has no fever or chills. Shows with right lower extremity swelling for which lower extremity Doppler was completed which was unremarkable for DVT. 2/10-patient is hemodynamically stable, and therefore would benefit from treatment of her underlying malignancy at this point. Therefore she is being discharged home with the strongly advised to follow up with her oncologist within 7 days. Follow up with the discharge clinic appointment within 7-14 days. Follow up with PCP within 7 days. Consults/Reason for consult Surgery Consulted for GB wall thickening Operations or Procedures ORDERING PHYSICIAN: SUSSY DAHL MD PROCEDURE(s): ABPLIV - CT AB PEL WITH IV CON ONLY REASON: abd pain ORDER NUMBER(s): [id number], ACCESSION NUMBER(s): [id number] Exam: CT CT AB PEL WITH IV CON ONLY History: abd pain Comparison Study: None available at time of dictation. Technique: Multidetector spiral CT of the abdomen and pelvis was performed from lung bases to pubic symphysis. Intravenous contrast was administered during this examination. Portal venous imaging was obtained. Axial, coronal and sagittal multiplanar reformats were performed by the technologist on a separate workstation. Radiation Dose : 1. Abdomen/Pelvis: CTDIvol 17 mGy, DLP 1049 mGy*cm. Findings: Lung Bases: Lung bases demonstrate multiple pulmonary nodules measuring up to 1 cm. Liver: Enlarged liver demonstrating nodular contour and multiple ill-defined hypodense lesions throughout. Gallbladder and Biliary Tree: Unremarkable Spleen: Unremarkable Pancreas: The pancreas is normal in appearance without focal lesions or abnormal enhancement. Adrenal Glands: Unremarkable Kidneys: Kidneys demonstrate normal symmetric enhancement without focal lesions, calculi or hydronephrosis. Bladder: Status post cystectomy with bilateral ureters terminating within ileal conduit. Bowel: The stomach is grossly normal in appearance. Postsurgical changes of the colon and small bowel at the ileocecal junction. Right lower quadrant ileostomy. The appendix is not visualized; however, no secondary findings of acute appendicitis identified. Ascites: Absent Lymphadenopathy: No mesenteric, retroperitoneal or periportal lymphadenopathy. Abdominal Wall and Mesentery: Unremarkable. Vasculature: The visualized abdominal aorta is normal in size and caliber. Abdominal and pelvic vessels demonstrate normal enhancement. Pelvic Organs: Fat stranding and mesenteric thickening involving the anterior lower pelvis. Multiple prominent nodules are noted in the anterior pelvis Musculoskeletal: No aggressive focal bony lesions, acute fractures or dislocation. IMPRESSION: Status post cystectomy with ileal conduit and right lower quadrant ileostomy. There is associated mesentery thickening involving the anterior lower pelvis with multiple prominent mesenteric nodules Ill-defined hypodense lesions scattered throughout the liver as well as multiple subcentimeter pulmonary nodules in the lung bases concerning for metastatic disease. ATED BY: TOO ALVAREZ DO DICTATED DATE/TIME: 09/23/24146 SIGNED BY: TOO ALVAREZ DO SIGNED DATE/TIME: 09/23/24146 CC: PROCEDURE(s): LIVUS - LIVER REASON: Rule out cholecystitis ORDER NUMBER(s): [id number], ACCESSION NUMBER(s): [id number] INDICATION: Rule out cholecystitis TECHNIQUE: Multiple real-time sonographic images of the abdomen were obtained. COMPARISON: None FINDINGS: Liver measures 19 cm. Multiple hypoechoic masses seen throughout the liver measuring up to 6 cm. The gallbladder wall measures 0.7 cm thickened. No gallstones or sludge is seen. No pericholecystic fluid is noted. The right kidney measures 10cm. No hydronephrosis. The pancreas is not well visualized due to obscuration from bowel gas. The visualized portions of the IVC and aorta are grossly unremarkable. IMPRESSION: Thickened gallbladder wall. Findings nonspecific. Please correlate with Alk Phos, bilirubin, blood culture, fever, WBC for primary cholecystitis, versus secondary wall thickening with lipase for pancreatitis, AST/ALT for hepatitis/cirrhosis, BUN/Cr for renal failure, and BNP/albumin for CHF/low protein state. Multiple hypoechoic masses seen throughout the liver measuring up to 6.4 cm. Education ATED BY: LUIS PARRISH MD DICTATED DATE/TIME: 09/26/24 1247 SIGNED BY: LUIS PARRISH MD SIGNED DATE/TIME: 09/26/24 1247 CC: Condition at Discharge: Poor Final Diagnosis/Problems List # Sepsis/ SIRS, likely due to Gastroentritis # History of cervical cancer, status post surgery # chronic respiratory failure secondary to metastatic lung disease # transaminitis secondary to metastatic liver disease # Thrombocytosis, likely reactive # Mild hyponatremia # 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 # chronic 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 ruled out GI bleeding # Moderate protein calorie malnutrition secondary to malignancy. # ruled out DVT # questionable MARY Discharge Disposition: Home Discharge Instruct/Medications Diet: Regular Activity: No Restrictions, As Tolerated Follow Up/Referral: Follow up with outpatient oncology in 1 week Follow up with DC clinic in 1 week. Discharge Statement: "Patient was advised to return to the ER or call 911 if any headaches, dizziness, shortness of breath, chest pain, abdominal pain, bleeding, fevers, or worsening of medical condition. Patient was counseled about treatment plan, medications, possible side effects, patientverbalized understanding. All questions were answered to the best of my ability. This discharge took greater then 30 minutes in planning, reviewing documentation, counseling the patient, and discussing with other team members." ASSESSMENT ASSESSMENT Assessment # Sepsis/ SIRS, likely due to Gastroentritis # Asymptomatic sinus Tachycardia, hypotension and leucocytosis likely secondary to malignancy # Ruled out infectious etiology # History of cervical cancer, status post surgery # Thrombocytosis, likely reactive # Mild hyponatremia # Transaminitis without hyperbilirubinemia likely secondary to malignancy # 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 # chronic 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 ruled out GI bleeding # Moderate protein calorie malnutrition secondary to malignancy. DIEGO MELENDEZ RESIDENT Sep 30, 2024 13:17
--- NOTE | 2024-09-30 14:40 | DVHPNRES ---
Progress Note Date Seen: Sep 30, 2024 Resident Creating Document: DIEGO MELENDEZ RESIDENT Has the PT tested + for MRSA If YES, has PT been informed?: No Medical Necessity Reason Pt with a Central, PICC or Fol: No Subjective Review of Systems This is a 39-year-old female with past medical history of asthma, cervical cancer (status post surgery in 2022 with hysterectomy and removal of urinary bladder), idiopathic intracranial hypertension, uses oxygen for told sleep apnea since 5 months (but has not performed sleep study) came to the hospital due to Palpitation. Patient heart rate was 140s, the patient was recently discharged from the hospital 3-4 days ago after being treated for pneumonia, on discharge patient was taking prednisone, doxycycline and ciprofloxacin. The patient also complains of abdominal pain pain is mostly on the right upper abdomen, patient also reports she is having diarrhea for last 2 days, with watery stool and no blood, she described the pain is 6-7 /10, with no radiation, nothing makes the pain better. Previous admission CT angio showed bilateral numerous pulmonary nodule may be metastatic nodule with bilateral prominent hilar node nonspecific may be reactive versus metastatic and CT abdomen CT demonstrated diffuse heterogenicity of the liver which may reflect metastatic disease and extensive nodularity in the lower bases with associated fat stranding possibly related to metastatic disease. The patient was not taking any chemotherapy because she prefers holistic treatment and not following with oncologist or [facility]. Tumor marker CA 125 was 4380 and CEA and CA 19-9 were normal. Patient did not have any insight about her condition of cancer and didn't want to discuss about the condition of the cancer. Patient seen and examined at the bedside. Has bilateral lower extremity swelling. One dose of IV Lasix 20 mg ordered. Fluid Restriction ordered. Objective vital signs Vital Sign Date Time Temp Pulse Resp B/P (MAP) Pulse Ox O2 Delivery O2 Flow Rate FiO2 09/30/24 09:00 97.8 114 20 100/72 (81) 93 97.8 09/30/24 08:00 Nasal Cannula* 3 32 Total Intake and Output 09/29/24 09/29/24 09/30/24 15:00 23:00 07:00 Intake Total 237 ml 720 ml 800 ml Output Total 900 ml Balance 237 ml 720 ml -100 ml medications Current Medications Medications Dose Ordered Sig/Cathy Route Start Time Stop Time Status Last Admin Dose Admin Sodium Chloride 10 ml Q8HR IV 09/23/24 06:00 09/30/24 05:37 10 ML Ondansetron HCl 4 mg Q4HP PRN IV 09/23/24 06:00 09/27/24 16:03 4 MG Ceftriaxone Sodium 50 ml @ 100 mls/hr DAILY@09 IV 09/27/24 09:00 09/30/24 11:07 100 MLS/HR Metronidazole 100 ml @ 100 mls/hr Q8HR IV 09/27/24 22:00 09/30/24 05:31 100 MLS/HR Pantoprazole Sodium 40 mg BID IV 09/27/24 22:00 09/30/24 11:07 40 MG Midodrine 10 mg TID@0600,1200,1800 PO 09/28/24 12:00 09/30/24 11:43 10 MG Albuterol 1.25 mg Q4HPRN PRN NEB 09/29/24 05:15 Docusate Sodium 100 mg BID PO 09/29/24 10:00 09/29/24 12:29 100 MG Acetaminophen/ Hydrocodone Bitart 1 tab Q6HPRN PRN PO 09/30/24 11:00 09/30/24 11:42 1 TAB Examination Patient lying in bed, in no acute distress General: Well-built, afebrile, palor, mucosae are moist Cardiovascular: Regular S1 and S2. No murmurs, gallops or rubs. No JVD elevation. pitting edema in the bilateral lower extremities Respiratory: Normal B/L air entry on room air. Clear lung sounds on auscultation Abdomen: Soft, tender, hard epigastric mass, nondistended, normoactive bowel sounds, no rebound tenderness, no organomegaly, no masses Genitourinary: Deferred MSK/skin: Mobilizes 4 limbs. Skin is dry and warm Neurological: No motor, no sensitive deficits, normal speech. Pupils are isocoric and reactive. Psych/Mental Status: A/Ox4 laboratory and microbiology Laboratory Tests 09/30/24 05:49 Test 09/30/24 05:49 Range/Units Serum Glucose 81 74-106 mg/dL Microbiology Date/Time Source Procedure Growth Status 09/24/24 08:43 Stool Stool Culture - Final Complete 09/24/24 08:43 Stool Shiga Toxin I & II - Final Complete 09/23/24 20:42 Nose MRSA Screen - Final Complete 09/23/24 12:11 Voided Urine Urine Culture - Final Complete 09/23/24 08:36 Blood Blood Culture - Final NO GROWTH AFTER 5 DAYS OF INCUBATION. Complete Labs and/or images reviewed: Labs reviewed by me, Image(s) reviewed by me Problem List/Assessment/Plan Problem List/Assessment/Plan Sepsis, likely due to Gastroenteritis? Leukocytosis most likely due to sepsis, could be reactive due to CA -Chest x-ray showed No cardio pulmonary disease -CT shows bilateral numerous pulmonary nodule, maybe metastatic nodule -Empiric antibiotics of Meropenem and vancomycin given and deescalate to IV ceftriaxone -IV fluid bolus given -Previous H/O ESBL -U/A normal -Blood culture, stool studies are negative , C-diff toxin absent. -IV ceftriaxone 1 gm daily and IV metronidazole 500 mg q 8hr, Patient currently reusing antibiotics -[place] (7.5/325 mg) q.6 p.r.n. -IV ondansetron 4 mg Q 8 p.r.n. -Liver u/s demonstrated thickened gall bladder -Surgery assessed the patient and determine that there is no need for surgical intervention at this time and recommended conservative management. -advance diet to mechanical soft Right lower extremity swelling, R/O DVT -ordered right lower extremity venous Doppler to rule out DVT, results still pending Sinus Tachycardia Due to Sepsis History of cervical cancer, status post surgery -CT scan shows bilateral numerous pulmonary nodule, possible metastasis -CT abdomen diffuse heterogeneity throughout the liver which may reflect metastatic disease and there is associated mesentery thickening involving the anterior lower pelvis with multiple prominent mesenteric nodules -Ordered CT chest without contrast and patient refused to do the test Bilateral lower extremity swelling -IV Lasix ordered 20 mg once Thrombocytosis, likely reactive -Monitoring Mild hyponatremia, monitoring Transaminitis without hyperbilirubinemia likely secondary to malignancy 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 Crystal Cruz discussed with: Patient My Orders My Orders Orders - DIEGO MELENDEZ RESIDENT Procedure Category Date Status Time Hydrocodone-Acet PHA 09/30/24 In Process 5/325mg Tab ([place] 11:00 Schedule For Dc CHRISTEN 09/30/24 In Process Clinic F/U 12:52 Ct Chest/Ab/Pl W Con- CT 09/30/24 Logged Iv Only 14:12 Furosemide Injection PHA 09/30/24 Logged (Lasix Injection) 14:15 Maintain Fluid CHRISTEN 09/30/24 In Process Restrictions 14:15 Elevate Each Leg W/ 1 CHRISTEN 09/30/24 In Process Pillow P 14:15 Dietary Evaluation Review Comments: 1) Advance to regular diet when medically feasible 2) If patient remains NPO for more than 7 days, consider EN/TPN to meet at least 75% of estimated needs 3) Continue to current plan of care 4) F/u with oncology Expected Outcomes/Goals: 1) labs to improve 2) GI symptoms to resolve 3) diet to advance 4) f/u in 2-3 days Date of Service: Sep 30, 2024 Billing Provider: JANY EASTON MD Common Visit Codes: [id number] INP/OBS CARE(HIGH) DIEGO MELENDEZ RESIDENT Sep 30, 2024 14:39 JANY EASTON MD Oct 01, 2024 09:55
[2024-09-30] MEDS: FUROSEMIDE 20 MG/2 ML VIAL IV ONE (15:11)
[2024-09-30] MEDS ORDERED: ALBUTEROL MEDNEB 2.5 mg/3ml NEB NEB PRN (23:00)
[2024-10-01] VITALS (10 sets, daily range): BP systolic 93–111; BP diastolic 59–72; PULSE 104–126; RESP 16–23; TEMP 97.3–98.1; O2SAT 93–98
--- NOTE | 2024-10-01 06:48 | DVHPNRES ---
Progress Note Date Seen: Oct 01, 2024 Resident Creating Document: DIEGO MELENDEZ RESIDENT Has the PT tested + for MRSA If YES, has PT been informed?: No Medical Necessity Reason Pt with a Central, PICC or Fol: No Subjective Review of Systems This is a 39-year-old female with past medical history of asthma, cervical cancer (status post surgery in 2022 with hysterectomy and removal of urinary bladder), idiopathic intracranial hypertension, uses oxygen for told sleep apnea since 5 months (but has not performed sleep study) came to the hospital due to Palpitation. Patient heart rate was 140s, the patient was recently discharged from the hospital 3-4 days ago after being treated for pneumonia, on discharge patient was taking prednisone, doxycycline and ciprofloxacin. The patient also complains of abdominal pain pain is mostly on the right upper abdomen, patient also reports she is having diarrhea for last 2 days, with watery stool and no blood, she described the pain is 6-7 /10, with no radiation, nothing makes the pain better. Previous admission CT angio showed bilateral numerous pulmonary nodule may be metastatic nodule with bilateral prominent hilar node nonspecific may be reactive versus metastatic and CT abdomen CT demonstrated diffuse heterogenicity of the liver which may reflect metastatic disease and extensive nodularity in the lower bases with associated fat stranding possibly related to metastatic disease. The patient was not taking any chemotherapy because she prefers holistic treatment and not following with oncologist or [facility]. Tumor marker CA 125 was 4380 and CEA and CA 19-9 were normal. Patient did not have any insight about her condition of cancer and didn't want to discuss about the condition of the cancer. Today, patient reports that she has a 3 opinions for her metastatic cervical cancer, and she received multiple rounds of chemo and radio which did not help her condition. Her PCP told her to consider hospice in July 2024. Patient seen and examined at the bedside. Bilateral lower extremity swelling is resolving, 1 dose of Lasix IV 20 mg ordered. Continue fluid restriction. Egmma ent opted for hospice. Consulted social media intern for hospice. Objective vital signs Vital Sign Date Time Temp Pulse Resp B/P (MAP) Pulse Ox O2 Delivery O2 Flow Rate FiO2 10/01/24 05:00 98.0 122 23 93/61 (72) 97 98.0 09/30/24 20:09 Nasal Cannula 3.0 09/30/24 20:09 32 Total Intake and Output 09/30/24 09/30/24 10/01/24 15:00 23:00 07:00 Intake Total 150 ml 750 ml 200 ml Output Total 200 ml 375 ml Balance 150 ml 550 ml -175 ml medications Current Medications Medications Dose Ordered Sig/Cathy Route Start Time Stop Time Status Last Admin Dose Admin Sodium Chloride 10 ml Q8HR IV 09/23/24 06:00 09/30/24 21:58 10 ML Ondansetron HCl 4 mg Q4HP PRN IV 09/23/24 06:00 09/27/24 16:03 4 MG Ceftriaxone Sodium 50 ml @ 100 mls/hr DAILY@09 IV 09/27/24 09:00 09/30/24 11:07 100 MLS/HR Metronidazole 100 ml @ 100 mls/hr Q8HR IV 09/27/24 22:00 09/30/24 05:31 100 MLS/HR Pantoprazole Sodium 40 mg BID IV 09/27/24 22:00 09/30/24 21:58 40 MG Midodrine 10 mg TID@0600,1200,1800 PO 09/28/24 12:00 09/30/24 18:12 10 MG Albuterol 1.25 mg Q4HPRN PRN NEB 09/29/24 05:15 Docusate Sodium 100 mg BID PO 09/29/24 10:00 09/29/24 12:29 100 MG Acetaminophen/ Hydrocodone Bitart 1 tab Q6HPRN PRN PO 09/30/24 11:00 10/01/24 00:28 1 TAB Albuterol 2.5 mg Q6HR PRN NEB 09/30/24 23:00 Examination Patient lying in bed General: Well-built, afebrile, palor, mucosae are moist Cardiovascular: Regular S1 and S2. No murmurs, gallops or rubs. No JVD elevation. Resolving pitting edema in the bilateral lower extremities Respiratory: Normal B/L air entry on 3 L oxygen via NC Abdomen: Soft, tender, hard epigastric mass, nondistended, normoactive bowel sounds, no rebound tenderness, no organomegaly, no masses Genitourinary: Deferred MSK/skin: Mobilizes 4 limbs. Skin is dry and warm Neurological: No motor, no sensitive deficits, normal speech. Pupils are isocoric and reactive. Psych/Mental Status: A/Ox4 laboratory and microbiology Test 10/01/24 06:01 Range/Units Serum Glucose Pending Microbiology Date/Time Source Procedure Growth Status 09/24/24 08:43 Stool Stool Culture - Final Complete 09/24/24 08:43 Stool Shiga Toxin I & II - Final Complete 09/23/24 20:42 Nose MRSA Screen - Final Complete 09/23/24 12:11 Voided Urine Urine Culture - Final Complete 09/23/24 08:36 Blood Blood Culture - Final NO GROWTH AFTER 5 DAYS OF INCUBATION. Complete Labs and/or images reviewed: Labs reviewed by me, Image(s) reviewed by me Problem List/Assessment/Plan Problem List/Assessment/Plan Sepsis, likely due to Gastroenteritis? Leukocytosis most likely due to sepsis, could be reactive due to CA Metastatic cervical carcinoma to the lungs and liver s/p failed CTX and RTx -Chest x-ray showed No cardio pulmonary disease -CT shows bilateral numerous pulmonary nodule, maybe metastatic nodule -Empiric antibiotics of Meropenem and vancomycin given and deescalate to IV ceftriaxone -IV fluid bolus given -Previous H/O ESBL -U/A normal -Blood culture, stool studies are negative , C-diff toxin absent. -IV ceftriaxone 1 gm daily and IV metronidazole 500 mg q 8hr, Patient currently reusing antibiotics -[place] (7.5/325 mg) q.6 p.r.n. -IV ondansetron 4 mg Q 8 p.r.n. -Liver u/s demonstrated thickened gall bladder -Surgery assessed the patient and determine that there is no need for surgical intervention at this time and recommended conservative management. -advance diet to mechanical soft Bilateral lower extremity swelling, R/O DVT -ordered right lower extremity venous Doppler to rule out DVT, results still pending - 20 mg Lasix daily IV Sinus Tachycardia Due to Sepsis History of cervical cancer, status post surgery -CT scan shows bilateral numerous pulmonary nodule, possible metastasis -CT abdomen diffuse heterogeneity throughout the liver which may reflect metastatic disease and there is associated mesentery thickening involving the anterior lower pelvis with multiple prominent mesenteric nodules -Ordered CT chest without contrast and patient refused to do the test Thrombocytosis, likely reactive -Monitoring Hypervolemic hyponatremia secondary to? 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 With 2 sisters involved. clinical services consultant consulted for hospice Plan discussed with Dr. Rojas Plan discussed with: Patient, Other (Sister over the phone) My Orders My Orders Orders - DIEGO MELENDEZ Procedure Category Date Status Time Hydrocodone-Acet PHA 09/30/24 In Process 5/325mg Tab ([place] 11:00 Schedule For Dc CHRISTEN 09/30/24 In Process Clinic F/U 12:52 Maintain Fluid CHRISTEN 09/30/24 In Process Restrictions 14:15 Elevate Each Leg W/ 1 CHRISTEN 09/30/24 In Process Pillow P 14:15 Basic Metabolic Panel LAB 10/01/24 In Process 04:00 Complete Blood Count LAB 10/01/24 In Process 04:00 Magnesium LAB 10/01/24 In Process 04:00 Hepatic Panel LAB 10/01/24 Transmitted 06:47 Dietary Evaluation Review Comments: 1) Advance to regular diet when medically feasible 2) If patient remains NPO for more than 7 days, consider EN/TPN to meet at least 75% of estimated needs 3) Continue to current plan of care 4) F/u with oncology Expected Outcomes/Goals: 1) labs to improve 2) GI symptoms to resolve 3) diet to advance 4) f/u in 2-3 days DIEGO MELENDEZ RESIDENT Oct 01, 2024 06:48
[2024-10-01 07:08] LABS: Mean Corpuscular Volume 77.9 fL (80.0-100.0)
[2024-10-01 07:10] LABS: Anion Gap 10 (5-15); Calcium 10.2 mg/dL (8.7-10.4); Carbon Dioxide 24 mmol/L (20-31); Potassium 4.3 mmol/L (3.5-5.1)
[2024-10-01 07:12] LABS: Hematocrit 30.2 % (36.0-46.0); Hemoglobin 9.3 g/dL (12.2-16.2); Mean Corpuscular Hemoglobin 24.1 pg (28.0-32.0); Mean Corpuscular Hgb Conc. 30.9 g/dL (32.0-36.0); Platelet Count (auto) 283 10^3/uL (140-450); Red Blood Cells 3.88 10^6/uL (4.0-5.20); Red Cell Distribution Width 21.9 % (11.8-14.3); White Blood Cell 29.1 10^3/uL (4.4-10.8)
[2024-10-01 07:16] LABS: Magnesium 1.7 mg/dL (1.6-2.6)
[2024-10-01 07:17] LABS: BUN/Creatinine Ratio 20.9 (10.0-20.0)
[2024-10-01 07:18] LABS: Blood Urea Nitrogen 9 mg/dL (9-23); Chloride 93 mmol/L (98-107); Glucose 110 mg/dL (74-106); Sodium 127 mmol/L (136-145)
[2024-10-01 07:19] LABS: Band Neutrophils % (manual) 0; Basophils % (manual) 0 (0.0-2.0); Blast Cells 0; Eosinophils % (manual) 0 (0-7); Metamyelocytes % 0; Myelocytes % 0; Promyelocytes % 0; Reactive Lymphocytes 0
[2024-10-01 08:34] LABS: Bilirubin, Total 1.2 mg/dL (0.2-1.0)
[2024-10-01 08:55] LABS: Albumin 2.8 g/dL (3.2-4.8); Total Protein 5.5 g/dL (5.7-8.2)
[2024-10-01 09:18] LABS: Lymphocytes % (manual) 4 (10.0-50.0); Monocytes % (manual) 4 (0-12); Platelet Estimate Adequate
[2024-10-01] MEDS: FUROSEMIDE 20 MG/2 ML VIAL IV ONE (12:12)
[2024-10-01] MEDS: HYDROcodone-ACET 7.5/325MG TAB PO PRN (13:11)
[2024-10-02] VITALS (14 sets, daily range): BP systolic 99–112; BP diastolic 57–73; PULSE 94–146; RESP 16–20; TEMP 97.6–98.4; O2SAT 91–100
[2024-10-02 06:38] LABS: Hematocrit 31.2 % (36.0-46.0); Red Blood Cells 4.03 10^6/uL (4.0-5.20)
[2024-10-02 06:40] LABS: Basophils # (auto) 0.3 10 ^3/uL (0-0.2); Basophils % (auto) 1.1 % (0.0-2.0); Eosinophils # (auto) 0.1 10 ^3/uL (0-0.8); Eosinophils % (auto) 0.3 % (0.0-7.0); Hemoglobin 9.5 g/dL (12.2-16.2); Lymphocytes % (auto) 4.3 % (10.0-50.0); Mean Corpuscular Hemoglobin 23.5 pg (28.0-32.0); Mean Corpuscular Hgb Conc. 30.4 g/dL (32.0-36.0); Mean Corpuscular Volume 77.4 fL (80.0-100.0); Monocytes # (auto) 1.1 10 ^3/uL (0-1.3); Monocytes % (auto) 4.5 % (0.0-12.0); Neutrophils # (auto) 21.5 10 ^3/uL (1.6-8.6); Neutrophils % (auto) 89.8 % (37.0-80.0); Platelet Count (auto) 261 10^3/uL (140-450); Red Cell Distribution Width 22.5 % (11.8-14.3); White Blood Cell 23.9 10^3/uL (4.4-10.8)
[2024-10-02] MEDS ORDERED: IPRATROPIUM BROM 0.5 MG/2.5ML INH SOL NEB SCH (06:45)
[2024-10-02] MEDS ORDERED: LEVALBUTEROL HCL 1.25 MG/3 ML NEB NEB SCH (06:45)
[2024-10-02 07:23] LABS: Calcium 9.8 mg/dL (8.7-10.4); Carbon Dioxide 25 mmol/L (20-31)
[2024-10-02 07:24] LABS: Anion Gap 10 (5-15); BUN/Creatinine Ratio 21.4 (10.0-20.0); Blood Urea Nitrogen 12 mg/dL (9-23)
[2024-10-02 07:52] LABS: Alanine Aminotransferase 56 U/L (7-40); Alkaline Phosphatase 458 U/L (46-116); Aspartate Aminotransferase 190 U/L (13-40); Bilirubin, Total 1.3 mg/dL (0.2-1.0); Chloride 91 mmol/L (98-107); Glucose 116 mg/dL (74-106); Sodium 126 mmol/L (136-145); Total Protein 5.3 g/dL (5.7-8.2)
[2024-10-02 07:53] LABS: Albumin 2.6 g/dL (3.2-4.8)
[2024-10-02] MEDS: PANTOPRAZOLE 40 MG/10 ML VIAL INJ IV SCH (09:33)
[2024-10-02] MEDS: Ensure HIGH Protein Chocolate 8oz Bottle PO SCH (09:43)
[2024-10-02] MEDS ORDERED: LACTULOSE 20Gm/30ML SOLN PO SCH (10:00)
[2024-10-02] MEDS: LEVALBUTEROL HCL 1.25 MG/3 ML NEB NEB SCH (11:08)
[2024-10-02] MEDS: IPRATROPIUM BROM 0.5 MG/2.5ML INH SOL NEB SCH (11:08)
[2024-10-02] MEDS: URSODIOL 300 MG CAP PO SCH (11:48)
[2024-10-02] MEDS: FLORASTOR (S. BOULARDII) 250 MG CAP PO SCH (11:49)
[2024-10-02 13:09] LABS: Bilirubin, Direct 0.6 mg/dL (<0.3)
[2024-10-02] MEDS: MICONAZOLE NITRATE 2 % VAGINAL CREAM 45 GM PV ONE (14:30)
--- NOTE | 2024-10-02 14:32 | ECG ---
[facility] Test Date: 2024-10-02 Test Time: 04:09:40 Pat Name: JARRED NGUYEN Department: Respiratoy Room: 0215T A Gender: F Caseworker Protective Services: TOMAS : 1985 Requested By: LANEY REESE Order Number: [id number] Reading MD: Rashad Dean Measurements Intervals [place] Rate: 147 P: 69 NV: 146 QRS: 46 QRSD: 86 T: -89 QT: 279 QTc: 437 Interpretive Statements Sinus tachycardia Low voltage, extremity leads Abnormal R-wave progression, late transition Nonspecific T abnormalities, lateral leads Electronically Signed On 10-03-2024 9:34:47 PST by Rashad Dean Please click the below link to view image of tracing.
[2024-10-02] MEDS: HYDROmorphone HCL 2 MG/ML VL/or syr IV PRN (16:00)
--- NOTE | 2024-10-02 16:47 | DVHPNRES ---
Progress Note Date Seen: Oct 02, 2024 Resident Creating Document: DIEGO MELENDEZ RESIDENT Has the PT tested + for MRSA If YES, has PT been informed?: No Medical Necessity Reason Pt with a Central, PICC or Fol: No Subjective Review of Systems This is a 39-year-old female with past medical history of asthma, cervical cancer (status post surgery in 2022 with hysterectomy and removal of urinary bladder), idiopathic intracranial hypertension, uses oxygen for told sleep apnea since 5 months (but has not performed sleep study) came to the hospital due to Palpitation. Patient heart rate was 140s, the patient was recently discharged from the hospital 3-4 days ago after being treated for pneumonia, on discharge patient was taking prednisone, doxycycline and ciprofloxacin. The patient also complains of abdominal pain pain is mostly on the right upper abdomen, patient also reports she is having diarrhea for last 2 days, with watery stool and no blood, she described the pain is 6-7 /10, with no radiation, nothing makes the pain better. Previous admission CT angio showed bilateral numerous pulmonary nodule may be metastatic nodule with bilateral prominent hilar node nonspecific may be reactive versus metastatic and CT abdomen CT demonstrated diffuse heterogenicity of the liver which may reflect metastatic disease and extensive nodularity in the lower bases with associated fat stranding possibly related to metastatic disease. The patient was not taking any chemotherapy because she prefers holistic treatment and not following with oncologist or [facility]. Tumor marker CA 125 was 4380 and CEA and CA 19-9 were normal. Patient did not have any insight about her condition of cancer and didn't want to discuss about the condition of the cancer. Today, patient reports that she has a 3 opinions for her metastatic cervical cancer, and she received multiple rounds of chemo and radio which did not help her condition. Her PCP told her to consider hospice in July 2024. 10/01- Patient seen and examined at the bedside. IV Lasix 20mg ordered. Bilateral lower extremity swelling is resolving, Continue fluid restriction. Patient opted for hospice. 10/02 - patient seen and examined at the bedside. Reports worsening pain, Dilaudid started q.4 p.r.n.. Reports yellowish discharge from vagina. Gonorrhea/chlamydia and vaginal culture ordered. Started miconazole cream b.i.d., continue ceftriaxone and metronidazole. Objective vital signs Vital Sign Date Time Temp Pulse Resp B/P (MAP) Pulse Ox O2 Delivery O2 Flow Rate FiO2 2/12/25 16:00 126 20 117/77 10/02/24 11:15 100 10/02/24 11:08 Nasal Cannula* 2 28 10/02/24 09:00 98.0 98.0 Total Intake and Output 10/01/24 10/01/24 10/02/24 15:00 23:00 07:00 Intake Total 50 ml 750 ml 370 ml Output Total 1300 ml 300 ml Balance 50 ml -550 ml 70 ml medications Current Medications Medications Dose Ordered Sig/Cathy Route Start Time Stop Time Status Last Admin Dose Admin Sodium Chloride 10 ml Q8HR IV 09/23/24 06:00 10/02/24 14:18 10 ML Ondansetron HCl 4 mg Q4HP PRN IV 09/23/24 06:00 10/02/24 01:45 4 MG Ceftriaxone Sodium 50 ml @ 100 mls/hr DAILY@09 IV 09/27/24 09:00 10/02/24 09:31 100 MLS/HR Metronidazole 100 ml @ 100 mls/hr Q8HR IV 09/27/24 22:00 10/02/24 14:18 100 MLS/HR Midodrine 10 mg TID@0600,1200,1800 PO 09/28/24 12:00 10/02/24 13:02 10 MG Albuterol 1.25 mg Q4HPRN PRN NEB 09/29/24 05:15 Cancel Docusate Sodium 100 mg BID PO 09/29/24 10:00 10/02/24 09:30 100 MG Albuterol 2.5 mg Q6HR PRN NEB 09/30/24 23:00 Cancel Pantoprazole Sodium 40 mg DAILY IV 10/02/24 10:00 10/02/24 09:33 40 MG Enteral Nutritional Formula 240 ml TIDWM PO 10/02/24 08:00 10/02/24 13:05 240 ML Levalbuterol HCl 1.25 mg Q6HR NEB 10/02/24 12:00 10/02/24 11:08 1.25 MG Ipratropium [place] 0.5 mg Q6HR NEB 10/02/24 12:00 10/02/24 11:08 0.5 MG Ursodiol 300 mg BID PO 10/02/24 10:00 10/02/24 11:48 300 MG Saccharomyces Boulardii 250 mg DAILY PO 10/02/24 10:00 10/02/24 11:49 250 MG Hydromorphone HCl 0.25 mg Q4HPRN PRN IV 10/02/24 14:15 10/02/24 16:00 0.25 MG Miconazole Nitrate 1 applic BID PV 10/02/24 22:00 Examination Patient lying in bed General: Well-built, afebrile, palor, mucosae are moist Cardiovascular: Regular S1 and S2. No murmurs, gallops or rubs. No JVD elevation. Resolving pitting edema in the bilateral lower extremities Respiratory: Normal B/L air entry on 3 L oxygen via NC Abdomen: Soft, tender, hard epigastric mass, nondistended, normoactive bowel sounds, no rebound tenderness, no organomegaly, no masses. Yellow discharge seen from vagina. Genitourinary: Deferred MSK/skin: Mobilizes 4 limbs. Skin is dry and warm Neurological: No motor, no sensitive deficits, normal speech. Pupils are isocoric and reactive. Psych/Mental Status: A/Ox4 laboratory and microbiology Laboratory Tests 10/02/24 06:04 Test 10/02/24 06:04 Range/Units Serum Glucose 116 H 74-106 mg/dL Microbiology Date/Time Source Procedure Growth Status 09/24/24 08:43 Stool Stool Culture - Final Complete 09/24/24 08:43 Stool Shiga Toxin I & II - Final Complete 09/23/24 20:42 Nose MRSA Screen - Final Complete 09/23/24 12:11 Voided Urine Urine Culture - Final Complete 09/23/24 08:36 Blood Blood Culture - Final NO GROWTH AFTER 5 DAYS OF INCUBATION. Complete Labs and/or images reviewed: Labs reviewed by me, Image(s) reviewed by me Problem List/Assessment/Plan Problem List/Assessment/Plan Sepsis, likely due to Gastroenteritis? Leukocytosis most likely due to sepsis, could be reactive due to CA Metastatic cervical carcinoma to the lungs and liver s/p failed CTX and RTx -Chest x-ray showed No cardio pulmonary disease -CT shows bilateral numerous pulmonary nodule, maybe metastatic nodule -Empiric antibiotics of Meropenem and vancomycin given and deescalate to IV ceftriaxone -IV fluid bolus given -Previous H/O ESBL -U/A normal -Blood culture, stool studies are negative , C-diff toxin absent. -IV ceftriaxone 1 gm daily and IV metronidazole 500 mg q 8hr, -IV Dilaudid 0.25 mg q.4 p.r.n. -Liver u/s demonstrated thickened gall bladder -Surgery assessed the patient and determine that there is no need for surgical intervention at this time and recommended conservative management. -advance diet to mechanical soft Bilateral lower extremity swelling, R/O DVT -ordered right lower extremity venous Doppler to rule out DVT, results still pending - 20 mg Lasix daily IV Sinus Tachycardia Due to Sepsis History of cervical cancer, status post surgery -CT scan shows bilateral numerous pulmonary nodule, possible metastasis -CT abdomen diffuse heterogeneity throughout the liver which may reflect metastatic disease and there is associated mesentery thickening involving the anterior lower pelvis with multiple prominent mesenteric nodules -Ordered CT chest without contrast and patient refused to do the test ? Vaginal candidiasis Vaginal discharge and tenderness along with the erythema Miconazole ointment started b.i.d. Vaginal culture pending Thrombocytosis, likely reactive -Monitoring Hypervolemic hyponatremia secondary to? 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 With 2 sisters involved. office services representative consulted for hospice Plan discussed with Dr. Rojas Plan discussed with: Patient My Orders My Orders Orders - DIEGO MELENDEZ RESIDENT Procedure Category Date Status Time Pantoprazole PHA 10/02/24 In Process (Protonix) 10:00 Nutritional PHA 10/02/24 In Process Supplements (Ensure 08:00 Levalbuterol Hcl PHA 10/02/24 In Process (Xopenex Medneb) 12:00 Ipratropium Medneb PHA 10/02/24 In Process (Atrovent Medneb) 12:00 Ursodiol (Actigall) PHA 10/02/24 In Process 10:00 Florastor (S. PHA 10/02/24 In Process Boulardii) (Florastor) 10:00 Chlamydia/Gc LAB 10/02/24 Logged Amplification 14:10 Bacterial Culture YAMIL 10/02/24 In Process Vaginal 14:12 Hydromorphone PHA 10/02/24 In Process Injection (Dilaudid 14:15 Miconazole Vag Cream PHA 10/02/24 In Process (Monistat Vag Cream 22:00 Dietary Evaluation Review Comments: 1) Advance to regular diet when medically feasible 2) If patient remains NPO for more than 7 days, consider EN/TPN to meet at least 75% of estimated needs 3) Continue to current plan of care 4) F/u with oncology Expected Outcomes/Goals: 1) labs to improve 2) GI symptoms to resolve 3) diet to advance 4) f/u in 2-3 days DIEGO MELENDEZ RESIDENT Oct 02, 2024 16:47
[2024-10-02] MEDS: MICONAZOLE NITRATE 2 % VAGINAL CREAM 45 GM PV SCH (21:51)
[2024-10-03] VITALS (11 sets, daily range): BP systolic 91–111; BP diastolic 61–73; PULSE 116–144; RESP 16–20; TEMP 97.9–98.2; O2SAT 96–99
[2024-10-03] MEDS: SODIUM CHLORIDE 0.9% 250 ML IV ONE (06:52)
[2024-10-03 09:21] LABS: Red Cell Distribution Width 22.2 % (11.8-14.3)
[2024-10-03 09:23] LABS: Basophils # (auto) 0.1 10 ^3/uL (0-0.2); Basophils % (auto) 0.4 % (0.0-2.0); Eosinophils # (auto) 0.1 10 ^3/uL (0-0.8); Eosinophils % (auto) 0.3 % (0.0-7.0); Hematocrit 30.3 % (36.0-46.0); Hemoglobin 9.6 g/dL (12.2-16.2); Lymphocytes # (auto) 1.4 10 ^3/uL (0.4-5.4); Lymphocytes % (auto) 5.6 % (10.0-50.0); Mean Corpuscular Hemoglobin 25.7 pg (28.0-32.0); Mean Corpuscular Hgb Conc. 31.6 g/dL (32.0-36.0); Mean Corpuscular Volume 81.2 fL (80.0-100.0); Monocytes # (auto) 1.3 10 ^3/uL (0-1.3); Monocytes % (auto) 5.1 % (0.0-12.0); Neutrophils % (auto) 88.6 % (37.0-80.0); Platelet Count (auto) 253 10^3/uL (140-450); Red Blood Cells 3.73 10^6/uL (4.0-5.20); White Blood Cell 24.8 10^3/uL (4.4-10.8)
[2024-10-03] MEDS: FLUCONAZOLE 100 MG TAB PO ONE (10:17)
[2024-10-03] MEDS ORDERED: MICO2CRE88 EX (10:46)
[2024-10-03] MEDS ORDERED: MICO2CRE45 PV (10:46)
[2024-10-03] MEDS ORDERED: SACC250C PO (10:46)
[2024-10-03 11:34] LABS: Anion Gap 13 (5-15); Calcium 9.9 mg/dL (8.7-10.4)
[2024-10-03 11:36] LABS: BUN/Creatinine Ratio 22.7 (10.0-20.0); Blood Urea Nitrogen 15 mg/dL (9-23); Glucose 78 mg/dL (74-106)
[2024-10-03 11:48] LABS: Alanine Aminotransferase 49 U/L (7-40); Albumin 2.7 g/dL (3.2-4.8); Alkaline Phosphatase 471 U/L (46-116); Aspartate Aminotransferase 143 U/L (13-40); Bilirubin, Total 1.5 mg/dL (0.2-1.0); Carbon Dioxide 20 mmol/L (20-31); Chloride 90 mmol/L (98-107); Potassium 5.1 mmol/L (3.5-5.1); Sodium 123 mmol/L (136-145); Total Protein 5.5 g/dL (5.7-8.2)
--- NOTE | 2024-10-03 12:37 | DVHDSRES ---
Discharge Summary Date of Admission Resident Creating Document: DIEGO MELENDEZ RESIDENT Sep 23, 2024 at 06:00 Date of Discharge: Sep 27, 2024 Labs/Diagnostic Data: Laboratory Results Test 10/03/24 08:20 10/01/24 06:01 10/01/24 01:30 09/30/24 05:49 White Blood Count 24.8 10^3/uL (4.4-10.8) Red Blood Count 3.73 10^6/uL (4.0-5.20) Hemoglobin 9.6 g/dL (12.2-16.2) Hematocrit 30.3 % (36.0-46.0) Mean Corpuscular Volume 81.2 fL (80.0-100.0) Mean Corpuscular Hemoglobin 25.7 pg (28.0-32.0) Mean Corpuscular Hemoglobin Concent 31.6 g/dL (32.0-36.0) Red Cell Distribution Width 22.2 % (11.8-14.3) Platelet Count 253 10^3/uL (140-450) Mean Platelet Volume 9.1 fL (6.9-10.8) Neutrophils (%) (Auto) 88.6 % (37.0-80.0) Lymphocytes (%) (Auto) 5.6 % (10.0-50.0) Monocytes (%) (Auto) 5.1 % (0.0-12.0) Eosinophils (%) (Auto) 0.3 % (0.0-7.0) Basophils (%) (Auto) 0.4 % (0.0-2.0) Neutrophils # (Auto) 22.0 10 ^3/uL (1.6-8.6) Lymphocytes # (Auto) 1.4 10 ^3/uL (0.4-5.4) Monocytes # (Auto) 1.3 10 ^3/uL (0-1.3) Eosinophils # (Auto) 0.1 10 ^3/uL (0-0.8) Basophils # (Auto) 0.1 10 ^3/uL (0-0.2) Nucleated Red Blood Cells 0.0 % Sodium Level 123 mmol/L (136-145) Potassium Level 5.1 mmol/L (3.5-5.1) Chloride Level 90 mmol/L (98-107) Carbon Dioxide Level 20 mmol/L (20-31) Anion Gap 13 (5-15) Blood Urea Nitrogen 15 mg/dL (9-23) Creatinine 0.66 mg/dL (0.550-1.02) Glomerular Filtration Rate Calc 116 mL/min (>90) BUN/Creatinine Ratio 22.7 (10.0-20.0) Serum Glucose 78 mg/dL (74-106) Calcium Level 9.9 mg/dL (8.7-10.4) Total Bilirubin 1.5 mg/dL (0.2-1.0) Aspartate Amino Transferase (AST) 143 U/L (13-40) Alanine Aminotransferase (ALT) 49 U/L (7-40) Alkaline Phosphatase 471 U/L (46-116) Total Protein 5.5 g/dL (5.7-8.2) Albumin 2.7 g/dL (3.2-4.8) Differential Total Cells Counted 100.0 (100) Neutrophils % (Manual) 92 (37.0-80.0) Band Neutrophils % (Manual) 0 Lymphocytes % (Manual) 4 (10.0-50.0) Monocytes % (Manual) 4 (0-12) Eosinophils % (Manual) 0 (0-7) Basophils % (Manual) 0 (0.0-2.0) Metamyelocytes % (manual) 0 Myelocytes % (Manual) 0 Promyelocytes % (Manual) 0 Blast Cells % (Manual) 0 Reactive Lymphocytes 0 Platelet Estimate Adequate Magnesium Level 1.7 mg/dL (1.6-2.6) Direct Bilirubin 0.6 mg/dL (<0.3) B-Type Natriuretic Peptide 49.78 pg/mL (0-100) Urine Osmolality 282 mOsm/kg Urine Sodium 29 mmol/L (40-220) Serum Osmolality 263 mOsm/kg (278-298) Thyroid Stimulating Hormone (TSH) 2.02 uIU/mL (0.55-4.78) Test 09/28/24 05:09 09/27/24 05:23 09/26/24 07:02 09/24/24 10:00 Amylase Level < 20 U/L (30-118) Lipase 19 U/L (12-53) Hypochromasia (manual) Moderate Anisocytosis (manual) Slight Microcytosis Slight Vancomycin Level Trough 12.3 ug/mL (5-10) Iron Level 12 ug/dL (50-170) Total Iron Binding Capacity 134 ug/dL (250-425) Percent Iron Saturation 9.0 % (15-50) Ferritin 739.9 ng/mL (10-291) Test 09/24/24 08:43 09/23/24 12:11 09/23/24 10:21 09/23/24 09:29 Stool for White Cells None seen Urine Color Yellow (Yellow) Urine Clarity Clear (Clear) Urine pH 6.5 (5.0-9.0) Urine Specific [place] 1.036 (1.001-1.035) Urine Protein 1+ (Negative) Urine Ketones Negative (Negative) Urine Blood Negative /uL (Negative) Urine Nitrite Negative (Negative) Urine Bilirubin Negative (Negative) Urine Urobilinogen Normal mg/dL (Negative) Urine Leukocyte Esterase Negative /uL (Negative) Urine RBC 7 /hpf (0 - 4) Urine Microscopic WBC 27 /HPF (0-5) Urine Squamous Epithelial Cells Few /hpf (<5) Urine Bacteria None seen /hpf (None Seen) Urine Mucus Few (None Seen) Urine Yeast (Budding) Occasional /hpf (None Urine Glucose Normal mg/dL (Normal) Urine Opiates Screen Pos (NEGATIVE) Urine Fentanyl Screen Pos (NEGATIVE) Urine Barbiturates Screen Neg (NEGATIVE) Urine Phencyclidine Screen Neg (NEGATIVE) Urine Amphetamines Screen Neg (NEGATIVE) Urine Benzodiazepines Screen Neg (NEGATIVE) Urine Cocaine Screen Neg (NEGATIVE) Urine Cannabinoids Screen Neg (NEGATIVE) Lactic Acid Level 1.7 mmol/L (0.4-2.0) Influenza Type A Antigen Negative (Negative) Influenza Type B Antigen Negative (Negative) SARS-CoV-2 Antigen (Rapid) Negative (NEGATIVE) Test 09/23/24 00:27 09/22/24 23:16 Troponin I High Sensitivity < 3 ng/L (</=34) Large Platelets Few Stomatocytes Few Prothrombin Time 13.3 sec (9.3-11.8) Prothrombin Time INR 1.29 (0.9-1.15) Activated Partial Thromboplast Time 29.3 SEC (24.5-34.5) Beta HCG, Quantitative 2.8 mIU/mL (1.5-4.2) Other Laboratory Tests 10/03/24 08:20 Brief Hx & Hospital Course: Abigail Srinivasan is a 39-year-old female with past medical history of asthma, cervical cancer (status post surgery in 2022 with hysterectomy and removal of urinary bladder), idiopathic intracranial hypertension, uses oxygen for told sleep apnea since 5 months (but has not performed sleep study) came to the hospital due to Palpitation. Patient heart rate was 140s, the patient was recently discharged from the hospital 3-4 days ago after being treated for pneumonia, on discharge patient was taking prednisone, doxycycline and ciprofloxacin. The patient also complains of abdominal pain pain is mostly on the right upper abdomen, patient also reports she is having diarrhea for last 2 days, with watery stool and no blood, she described the pain is 6-7 /10, with no radiation, nothing makes the pain better. Previous admission CT angio showed bilateral numerous pulmonary nodule may be metastatic nodule with bilateral prominent hilar node nonspecific may be reactive versus metastatic and CT abdomen CT demonstrated diffuse heterogenicity of the liver which may reflect metastatic disease and extensive nodularity in the lower bases with associated fat stranding possibly related to metastatic disease. The patient was not taking any chemotherapy because she prefers holistic treatment and not following with oncologist or [facility]. Tumor marker CA 125 was 4380 and CEA and CA 19-9 were normal. Patient did not have any insight about her condition of cancer and didn't want to discuss about the condition of the cancer. During the hospitalization, patient was diagnosed with sepsis likely secondary to gastroenteritis. She was started on empiric meropenem and vancomycin, which was later deescalated to IV ceftriaxone and IV metronidazole. Patient was refusing antibiotics multiple times during the hospital stay. CT scan showed bilateral numerous chronic nodules, may be metastatic nodules. Liver ultrasound shows thickened gallbladder. Surgery was consulted and surgeon Dr. Costa recommended conservative management given the patient has metastatic cancer. Patient white cell count dropped from 30-21. Pancultures were ordered, stool culture was unremarkable, C diff was negative, blood culture was negative. WBC count could be reactive given the patient has no fever or chills. Shows with right lower extremity swelling for which lower extremity Doppler was completed which was unremarkable for DVT. LE extremity swelling was resolved with IV lasix and patient was given PO fluconazole 400mg once and miconazole cream for vaginal candidiasis. Patient opted for home hospice which was arranged on 10/02 and therefore 10/03- discharged with home hospice. Consults/Reason for consult Surgery Consulted for GB wall thickening Operations or Procedures ORDERING PHYSICIAN: SUSSY DAHL MD PROCEDURE(s): ABPLIV - CT AB PEL WITH IV CON ONLY REASON: abd pain ORDER NUMBER(s): [id number], ACCESSION NUMBER(s): [id number] Exam: CT CT AB PEL WITH IV CON ONLY History: abd pain Comparison Study: None available at time of dictation. Technique: Multidetector spiral CT of the abdomen and pelvis was performed from lung bases to pubic symphysis. Intravenous contrast was administered during this examination. Portal venous imaging was obtained. Axial, coronal and sagittal multiplanar reformats were performed by the technologist on a separate workstation. Radiation Dose : 1. Abdomen/Pelvis: CTDIvol 17 mGy, DLP 1049 mGy*cm. Findings: Lung Bases: Lung bases demonstrate multiple pulmonary nodules measuring up to 1 cm. Liver: Enlarged liver demonstrating nodular contour and multiple ill-defined hypodense lesions throughout. Gallbladder and Biliary Tree: Unremarkable Spleen: Unremarkable Pancreas: The pancreas is normal in appearance without focal lesions or abnormal enhancement. Adrenal Glands: Unremarkable Kidneys: Kidneys demonstrate normal symmetric enhancement without focal lesions, calculi or hydronephrosis. Bladder: Status post cystectomy with bilateral ureters terminating within ileal conduit. Bowel: The stomach is grossly normal in appearance. Postsurgical changes of the colon and small bowel at the ileocecal junction. Right lower quadrant ileostomy. The appendix is not visualized; however, no secondary findings of acute appendicitis identified. Ascites: Absent Lymphadenopathy: No mesenteric, retroperitoneal or periportal lymphadenopathy. Abdominal Wall and Mesentery: Unremarkable. Vasculature: The visualized abdominal aorta is normal in size and caliber. Abdominal and pelvic vessels demonstrate normal enhancement. Pelvic Organs: Fat stranding and mesenteric thickening involving the anterior lower pelvis. Multiple prominent nodules are noted in the anterior pelvis Musculoskeletal: No aggressive focal bony lesions, acute fractures or dislocation. IMPRESSION: Status post cystectomy with ileal conduit and right lower quadrant ileostomy. There is associated mesentery thickening involving the anterior lower pelvis with multiple prominent mesenteric nodules Ill-defined hypodense lesions scattered throughout the liver as well as multiple subcentimeter pulmonary nodules in the lung bases concerning for metastatic disease. ATED BY: TOO ALVAREZ DO DICTATED DATE/TIME: 02/03/25 0147 SIGNED BY: TOO ALVAREZ DO SIGNED DATE/TIME: 09/23/24146 CC: PROCEDURE(s): LIVUS - LIVER REASON: Rule out cholecystitis ORDER NUMBER(s): [id number], ACCESSION NUMBER(s): [id number] INDICATION: Rule out cholecystitis TECHNIQUE: Multiple real-time sonographic images of the abdomen were obtained. COMPARISON: None FINDINGS: Liver measures 19 cm. Multiple hypoechoic masses seen throughout the liver measuring up to 6 cm. The gallbladder wall measures 0.7 cm thickened. No gallstones or sludge is seen. No pericholecystic fluid is noted. The right kidney measures 10cm. No hydronephrosis. The pancreas is not well visualized due to obscuration from bowel gas. The visualized portions of the IVC and aorta are grossly unremarkable. IMPRESSION: Thickened gallbladder wall. Findings nonspecific. Please correlate with Alk Phos, bilirubin, blood culture, fever, WBC for primary cholecystitis, versus secondary wall thickening with lipase for pancreatitis, AST/ALT for hepatitis/cirrhosis, BUN/Cr for renal failure, and BNP/albumin for CHF/low protein state. Multiple hypoechoic masses seen throughout the liver measuring up to 6.4 cm. Education ATED BY: LUIS PARRISH MD DICTATED DATE/TIME: 09/26/241246 SIGNED BY: LUIS PARRISH MD SIGNED DATE/TIME: 09/26/241246 CC: Condition at Discharge: Poor Final Diagnosis/Problems List # Sepsis/ SIRS, likely due to Gastroentritis # Metastatic cervical carcinoma to the lungs and liver s/p failed CTX and RTx # chronic respiratory failure secondary to metastatic lung disease # transaminitis secondary to metastatic liver disease # ? Vaginal candidiasis # Thrombocytosis, likely reactive # Mild hyponatremia # Hypervolemic hyponatremia secondary to? Liver disease versus hypoalbuminemia # 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 # chronic 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 ruled out GI bleeding # Moderate protein calorie malnutrition secondary to malignancy. # ruled out DVT # questionable MARY Discharge Disposition: Hospice - Home Discharge Instruct/Medications Diet: Regular Activity: No Restrictions, As Tolerated Follow Up/Referral: Follow up with home hospice Medications: per hospice Discharge Statement: "Patient was advised to return to the ER or call 911 if any headaches, dizziness, shortness of breath, chest pain, abdominal pain, bleeding, fevers, or worsening of medical condition. Patient was counseled about treatment plan, medications, possible side effects, patientverbalized understanding. All questions were answered to the best of my ability. This discharge took greater then 30 minutes in planning, reviewing documentation, counseling the patient, and discussing with other team members." ASSESSMENT ASSESSMENT Assessment Metastatic cervical carcinoma to the lungs and liver s/p failed CTX and RTx Sepsis, likely due to Gastroenteritis? ? Vaginal candidiasis Hypervolemic hyponatremia secondary to? Liver disease versus hypoalbuminemia Transaminitis without hyperbilirubinemia likely secondary to malignancy 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 Chronic 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; ruled out GI bleeding DIEGO MELENDEZ RESIDENT Oct 03, 2024 12:37
== END 2024-10-03 13:32 | disposition hospice, home (50) | DRG 720 ==
LOC: EDBD 22:27 → ER 22:27 → TELE 09-23 06:00 → TELE-CENTR 09-23 06:04 → TELE 10-01 14:40 → CENTRAL 10-01 14:49 → OVERFLOW 10-02 12:37 → TELE-CENTR 10-02 12:40
PROVIDERS: ADMIT Student in an Organized Health Care Education/Training Program; ATTEND Student in an Organized Health Care Education/Training Program
DX: A41.9 Sepsis, unspecified organism (principal); J96.10 Chronic respiratory failure, unspecified whether with hypoxia or hypercapnia; E44.0 Moderate protein-calorie malnutrition; C80.1 Malignant (primary) neoplasm, unspecified; E87.1 Hypo-osmolality and hyponatremia; D75.839 Thrombocytosis, unspecified; I10 Essential (primary) hypertension; D63.0 Anemia in neoplastic disease; J45.909 Unspecified asthma, uncomplicated; Z20.822 Contact with and (suspected) exposure to COVID-19; K52.9 Noninfective gastroenteritis and colitis, unspecified; Z68.35 Body mass index [BMI] 35.0-35.9, adult; Z85.118 Personal history of other malignant neoplasm of bronchus and lung; Z85.41 Personal history of malignant neoplasm of cervix uteri; Z90.710 Acquired absence of both cervix and uterus; Z93.2 Ileostomy status; Z93.3 Colostomy status; Z79.899 Other long term (current) drug therapy
CPT/HCPCS: 36415; 71045; 74177; 76705; 80048; 80053; 80076; 80202; 80307; 81001; 82150; 82728; 83540; 83550; 83605; 83690; 83735; 83880; 83930; 83935; 84300; 84443; 84484; 84702; 85007; 85025; 85027; 85048; 85610; 85730; 87040; 87045; 87070; 87081; 87086; 87426; 87427; 87493; 87804; 93005; 93971; 94640; 96365; 96375; 99291; G0378; J1885; J2185; J2405; J2470; J3490

== ENCOUNTER 2024-10-04 09:31 | Inpatient (IN) | payer MEDICAID ==
[~2024-10-04] VITALS: Ht 157.5 cm; Wt 91.0 kg
[~2024-10-04 09:31] MED LIST changes: -CIPR500T4 PO; -DOXY1CAP57 PO; +MICO2CRE88 EX; +MIDO10TA3 PO; -PRED20TA2 PO; +SACC250C PO
[2024-10-04] MEDS ORDERED: NOREPINEPHRINE 8 MG/250ML KIT 250 ML IV SCH (10:15)
[2024-10-04] MEDS: SODIUM CHLORIDE 0.9% 1,500 ML IV ONE (10:15)
--- NOTE | 2024-10-04 10:29 | DVH ---
EXAM: XY CHEST PORTABLE Indication: sob Technique: Single frontal view of the chest was obtained Comparison: XY CHEST XRAY 1 VIEW on DOS: 09/23/24, XY CHEST PORTABLE on DOS: 09/23/24, XY CHEST PORTABLE on DOS: 09/16/24, RHUM on DOS: 07/28/22 FINDINGS: Lines and Tubes: None Lungs: Bibasilar opacities. Pleura: No effusion. No pneumothorax. Cardiomediastinal contours: Cardiomegaly. Bones: No acute osseous abnormality. IMPRESSION: Cardiomegaly with bibasilar opacities.
--- NOTE | 2024-10-04 10:31 | ED.PDOC ---
History of Present Illness HPI Comments 39-year-old female brought in by EMS presents with a chief complaint of syncopal episode. Per EMS, family called EMS due to patient "passing out" numerous times today. Patient is bed bound and currently on hospice due to metastatic lung cancer and brain disease. Patient is A/Ox1. Patient was hypotensive on scene according to EMS. Chief Complaint: Syncope Time Seen by MD: 09:49 Primary Care Provider: PULIN Reviewed Notes: Medications, Allergies Allergies: Coded Allergies: Pseudoephedrine (Verified Allergy, Unknown, 06/19/24) Home Meds Active Scripts Miconazole Nitrate (Topical) (ANTIFUNGAL) 2 % Cre, 2 % EX BID for 10 Days, #3 CRE 0 Refills Prov:DIEGO MELENDEZ 10/03/24 Yeast (S. Boulardii)(S. Cerevi (Florastor) 250 Mg Cap, 250 MG PO DAILY for 30 Days, CAP Prov:DIEGO MELENDEZ 10/03/24 Midodrine Hcl (Midodrine Hcl) 10 Mg Tab, 10 MG PO BID for 30 Days, #60 TAB 0 Refills Prov:JANY EASTON MD 09/30/24 Alprazolam (Xanax) 0.5 Mg Tb, 1 TAB PO BID PRN for 7 Days, #14 TAB 0 Refills Prov:JANY EASTON MD 09/19/24 Lactulose (Lactulose) 10 Gm/15 Ml Julita, 10 GM PO DAILY for 7 Days, #210 ML Prov:JAY VALENZUELA 09/19/24 Famotidine (PEPCID TABLET) 20 Mg Tb, 1 TAB PO BID for 14 Days, #28 TAB 5 Refills Prov:JAY VALENZUELA 09/19/24 Discontinued Scripts Prednisone (Prednisone) 20 Mg Tab, 40 MG PO DAILY for 3 Days, #5 MG Prov:JAY VALENZUELA 09/19/24 Doxycycline Monohydrate (Doxycycline Monohydrate) 100 Mg Cap, 1 CAP PO BID for 5 Days, #10 CAP Prov:JAY VALENZUELA 09/19/24 Ciprofloxacin Hcl (Ciprofloxacin Hcl) 500 Mg Tab, 1 TAB PO BID for 7 Days, #14 TAB Prov:JAY VALENZUELA 09/19/24 Information Source: Emergency Med Personnel Mode of Arrival: EMS Severity: Moderate Timing: Hours Duration: Since onset Prehospital treatment: None Past Medical History PAST MEDICAL HISTORY: Asthma, Cancer, HTN, UTI'S Surgical History: Hysterectomy [employer] History: Cervical Cancer Family History Family History: Reviewed,noncontributory to illness Social History Smoker: Non-Smoker Alcohol: Occasionally Drugs: Denies Drug Use Lives In: Home Constitutional: reports: weakness; denies: chills, diaphoresis, fatigue, fever, malaise, sweats, others EENTM: denies: blurred vision, double vision, ear bleeding, ear discharge, ear drainage, ear pain, ear ringing, eye pain, eye redness, hearing loss, mouth pain, mouth swelling, nasal discharge, nose bleeding, nose congestion, nose pain, photophobia, tearing, throat pain, throat swelling, voice changes, others Respiratory: denies: cough, hemoptysis, orthopnea, SOB at rest, shortness of breath, SOB with excertion, stridor, wheezing, others Cardiovascular: reports: syncope; denies: chest pain, dizzy spells, diaphore sis, Dyspnea on exertion, edema, irregular heart beat, left arm pain, lightheadedness, palpitations, PND, others Gastrointestinal: denies: abdomen distended, abdominal pain, blood streaked bowels, constipated, diarrhea, dysphagia, difficulty swallowing, hematemesis, melena, nausea, poor appetite, poor fluid intake, rectal bleeding, rectal pain, vomiting, others Genitourinary: denies: abnormal vagina bleeding, burning, dyspareunia, dysuria, flank pain, frequency, hematuria, incontinence, pain, , vagina discharge, urgency, others Neurological: denies: dizziness, fainting, headache, left sided numbness, left sided weakness, numbness, paresthesia, pre-existing deficit, right sided numbness, right sided weakness, seizure, speech problems, tingling, tremors, weakness, others Musculoskeletal: denies: back pain, gout, joint pain, joint swelling, muscle pain, muscle stiffness, neck pain, others Integumetry: denies: bruises, change in color, change in hair/nails, dryness, laceration, lesions, lumps, rash, wounds, others Allergic/Immunocompromised: denies: Difficulty Healing, Frequent Infections, Hives, Itching, others Hematologic/Lymphatic: denies: anemia, blood clots, easy bleeding, easy bruising, swollen glands, others Endocrine: denies: excessive hunger, excessive sweating, excessive thirst, excessive urination, flushing, intolerance to cold, intolerance to heat, unexplained weight gain, unexplained weight loss, others Psychiatric: denies: anxiety, bipolar disorder, depression, hopeless, panic disorder, schizophrenia, sleepless, suicidal, others All Other Systems: Reviewed and Negative Physical Exam General Appearance: Moderate Distress, Normal HEENT: Normal ENT Inspection Neck: NOT DONE Respiratory: Chest Non-Tender, No Accessory Muscle Use, No Respiratory Distress, Normal Breath Sounds Cardiovascular: NOT DONE Breast Exam: Deferred Gastrointestinal: Diffuse, Soft, Tenderness Genitalia: Deferred Pelvic: Deferred Rectal: Deferred Extremities: No calf tenderness, Normal capillary refill, Normal inspection, Normal range of motion, Non-tender, No pedal edema Neurologic: Alert Cerebellar Function: Unable to Test Reflexes: NOT DONE Skin: Dry, Other (PALE/GREEN) Lymphatic: NOT DONE Was a procedure done? Was a procedure done?: No Differential Dx Considerations may include: Sepsis, meningitis, encephalitis, he acute cystitis, electrolyte abnormalities, renal failure X-Ray, Labs, Meds, VS Vital Signs Date Time Temp Pulse Resp B/P (MAP) Pulse Ox O2 Delivery O2 Flow Rate FiO2 10/04/24 13:00 127 29 108/66 (80) 92 10/04/24 10:20 130 24 100/61 (74) 93 10/04/24 09:43 97.6 127 26 111/76 (88) 94 10/04/24 09:35 127 Lab Test 10/04/24 11:19 10/04/24 10:15 Range/Units Lactic Acid Level 3.8 *H 0.4-2.0 mmol/L Troponin I High Sensitivity < 3 L 3 L </=34 ng/L White Blood Count 21.7 H 4.4-10.8 10^3/uL Red Blood Count 3.53 L 4.0-5.20 10^6/uL Hemoglobin 8.9 L 12.2-16.2 g/dL Hematocrit 28.5 L 36.0-46.0 % Mean Corpuscular Volume 80.7 80.0-100.0 fL Mean Corpuscular Hemoglobin 25.1 L 28.0-32.0 pg Mean Corpuscular Hemoglobin Concent 31.1 L 32.0-36.0 g/dL Red Cell Distribution Width 23.0 H 11.8-14.3 % Platelet Count 223 140-450 10^3/uL Mean Platelet Volume 9.0 6.9-10.8 fL Neutrophils (%) (Auto) 89.4 H 37.0-80.0 % Lymphocytes (%) (Auto) 4.1 L 10.0-50.0 % Monocytes (%) (Auto) 5.1 0.0-12.0 % Eosinophils (%) (Auto) 0.2 0.0-7.0 % Basophils (%) (Auto) 1.2 0.0-2.0 % Neutrophils # (Auto) 19.4 H 1.6-8.6 10 ^3/uL Lymphocytes # (Auto) 0.9 0.4-5.4 10 ^3/uL Monocytes # (Auto) 1.1 0-1.3 10 ^3/uL Eosinophils # (Auto) 0.1 0-0.8 10 ^3/uL Basophils # (Auto) 0.3 H 0-0.2 10 ^3/uL Nucleated Red Blood Cells 0.0 % Prothrombin Time 17.1 H 9.3-11.8 sec Prothrombin Time INR 1.70 H 0.9-1.15 Activated Partial Thromboplast Time 39.0 H 24.5-34.5 SEC Fibrinogen 439 H 177-375 mg/dL D-Dimer, Quantitative 4.72 H 0.0-0.49 mg/L FEU Sodium Level 125 L 136-145 mmol/L Potassium Level 5.0 3.5-5.1 mmol/L Chloride Level 93 L 98-107 mmol/L Carbon Dioxide Level 22 20-31 mmol/L Anion Gap 10 5-15 Blood Urea Nitrogen 22 9-23 mg/dL Creatinine 0.64 0.550-1.02 mg/dL Glomerular Filtration Rate Calc 117 >90 mL/min BUN/Creatinine Ratio 34.4 H 10.0-20.0 Serum Glucose 76 74-106 mg/dL Calcium Level 9.4 8.7-10.4 mg/dL Total Bilirubin 1.4 H 0.2-1.0 mg/dL Aspartate Amino Transferase (AST) 187 H 13-40 U/L Alanine Aminotransferase (ALT) 49 H 7-40 U/L Alkaline Phosphatase 426 H 46-116 U/L Creatine Kinase 127 34-145 U/L B-Type Natriuretic Peptide 53.24 0-100 pg/mL Total Protein 5.0 L 5.7-8.2 g/dL Albumin 2.4 L 3.2-4.8 g/dL Current Medications Medications (Trade) Dose Ordered Sig/Cathy Route Start Time Stop Time Status Last Admin Sodium Chloride 1,500 ml @ 1,500 mls/hr ONCE ONCE IV 10/04/24 10:15 10/04/24 11:14 DC 10/04/24 10:15 Piperacillin Sod/ Tazobactam Sod 100 ml @ 100 mls/hr ONCE ONCE IV 10/04/24 11:45 10/04/24 12:44 DC 10/04/24 11:58 X-Ray, Labs, Meds, VS Comment This 39-year-old female with known metastatic cancer presents secondary to increasing weakness. The patient appears unwell. She was pale, diaphoretic. Workup here significant folds abnormalities including but may start at opacities that may be pneumonia, hyponatremia and other electrolyte abnormalities. She will be admitted for further workup management of her multiple complaints. Time of 1ST Reevaluation: 10:19 Reevaluation 1ST: Unchanged Patient Education/Counseling: Diagnosis, Treatment, Prognosis Family Education/Counseling: Diagnosis, Treatment, Prognosis Departure 1 Departure Time of Disposition: 11:25 Impression: Primary Impression: Malaise Additional Impressions: Hyponatremia Hypochloremia Metastatic cancer Disposition: ADMITTED INPATIENT Admit to: Tele Condition: Serious Critical Care Note Critical Care Time?: No Stability Stability form required: No Heart Score Heart Score: Heart Score Response (Comments) Value History N/A 0 EKG N/A 0 Age N/A 0 Risk Factors N/A 0 Troponin N/A 0 Total 0 I personally scribed for SHARA GUPTA MD ([email or web address]) on 10/04/24 at 10:31. Electronically submitted by Severino Nguyen ([email or web address]). SHARA GUPTA MD Oct 04, 2024 10:31
[2024-10-04 11:08] LABS: Anion Gap 10 (5-15); BUN/Creatinine Ratio 34.4 (10.0-20.0); Blood Urea Nitrogen 22 mg/dL (9-23); Calcium 9.4 mg/dL (8.7-10.4); Carbon Dioxide 22 mmol/L (20-31); Glucose 76 mg/dL (74-106)
[2024-10-04 11:09] LABS: Alanine Aminotransferase 49 U/L (7-40); Albumin 2.4 g/dL (3.2-4.8); Alkaline Phosphatase 426 U/L (46-116); Aspartate Aminotransferase 187 U/L (13-40); Chloride 93 mmol/L (98-107); Sodium 125 mmol/L (136-145)
--- NOTE | 2024-10-04 11:10 | DVH ---
CT ABDOMEN AND PELVIS WITHOUT CONTRAST CLINICAL HISTORY: abd pain TECHNIQUE: Multiple contiguous axial images of the abdomen and pelvis without intravenous contrast. The images were reformatted degenerate coronal and sagittal reconstructions. All CT scans at this medical facility are performed using dose modulation techniques as appropriate t o a performed exam including the following:Automated exposure control was utilized; adjustment of the MA and/or KV according to patient size; and use of iterative reconstruction technique. Radiation Dose Information: CT Dose: CTDI volume is 20 mGy. Dose-length product is 1201 mGy*cm Comparison: CT CT AB PEL WO CON-NO ORAL OR IV on DOS: 09/16/24, CT CT AB PEL WO CON-NO ORAL OR IV on D OS: 05/28/24 FINDINGS: Evaluation of the abdomen and pelvis is limited without intravenous contrast. Redemonstrated are postsurgical changes related to cystectomy with ileal conduit and right lower quad rant ileostomy. There is again mesenteric fat stranding and thickening in the right lower quadrant ab domen and pelvis with multiple scattered ill-defined nodularities. There is some free fluid in the pe lvis. The liver is again enlarged and appears heterogeneous with multiple scattered poorly defined hypodens e areas. The gallbladder, pancreas, kidneys, adrenal glands, and spleen appear within normal limit s. There is now ulluz-xr-lbmguxif amount of ascites. There is no free intraperitoneal air. The stomach grossly appears unremarkable. The small and large bowel loops demonstrate normal caliber . The abdominal aorta and IVC appear within normal limits. Again seen are subcentimeter pulmonary nodules in the lung bases. There is no acute osseous abnormality. IMPRESSION: 1. Redemonstrated are postsurgical changes related to cystectomy with ileal conduit and right lower q uadrant ileostomy. 2. There is again mesenteric fat stranding and thickening in the right lower quadrant abdomen and pel vis with multiple scattered ill-defined nodularities suspicious for metastatic lymph nodes. 3. Enlarged and heterogeneous liver with multiple scattered poorly defined hypodense areas. Metastat ic lesions are not excluded. 4. Subcentimeter pulmonary nodules in the lung bases. Pulmonary metastasis not excluded. 5. Oopjj-bz-lwjqymlg amount of ascites. HS:Y
[2024-10-04 11:11] LABS: Bilirubin, Total 1.4 mg/dL (0.2-1.0); Creatine Kinase IFCC 127 U/L (34-145)
[2024-10-04 11:28] LABS: INR 1.7 (0.9-1.15); Prothrombin Time 17.1 sec (9.3-11.8)
[2024-10-04 11:31] LABS: Eosinophils # (auto) 0.1 10 ^3/uL (0-0.8); Hemoglobin 8.9 g/dL (12.2-16.2); Lymphocytes # (auto) 0.9 10 ^3/uL (0.4-5.4); White Blood Cell 21.7 10^3/uL (4.4-10.8)
[2024-10-04 11:34] LABS: Basophils # (auto) 0.3 10 ^3/uL (0-0.2); Basophils % (auto) 1.2 % (0.0-2.0); Eosinophils % (auto) 0.2 % (0.0-7.0); Hematocrit 28.5 % (36.0-46.0); Lymphocytes % (auto) 4.1 % (10.0-50.0); Mean Corpuscular Hemoglobin 25.1 pg (28.0-32.0); Mean Corpuscular Hgb Conc. 31.1 g/dL (32.0-36.0); Mean Corpuscular Volume 80.7 fL (80.0-100.0); Monocytes # (auto) 1.1 10 ^3/uL (0-1.3); Monocytes % (auto) 5.1 % (0.0-12.0); Neutrophils # (auto) 19.4 10 ^3/uL (1.6-8.6); Neutrophils % (auto) 89.4 % (37.0-80.0); Platelet Count (auto) 223 10^3/uL (140-450); Red Blood Cells 3.53 10^6/uL (4.0-5.20)
[2024-10-04] MEDS ORDERED: VANCOMYCIN PER PHARMACY 0 MG IV SCH ×2 (11:45→13:30)
[2024-10-04 11:58] LABS: Lactic Acid w/Reflex 3.8 mmol/L (0.4-2.0)
[2024-10-04] MEDS: PIPERACILLIN-TAZO 4.5GM 100 ML IV ONE (11:58)
[2024-10-04] MEDS ORDERED: ACETAMINOPHEN 325 MG TAB PO PRN (13:30)
[2024-10-04] MEDS ORDERED: HYDROcodone-ACET 5/325MG TAB PO PRN (13:30)
[2024-10-04] MEDS ORDERED: ONDANSETRON HCL 4 MG/2 ML VIAL IV PRN (13:30)
--- NOTE | 2024-10-04 13:54 | DVHHP2 ---
History of Present Illness Reason for Visit: Syncope History of Present Illness Abigail Srinivasan is a 39-year-old female with past medical history of asthma, cervical cancer, idiopathic intracranial hypertension, sleep apnea, hysterectomy, cystectomy with chronic Yee catheter, and right arm surgery in 2022 who presents to the ED with syncope that started this morning. Patient is currently on hospice for metastatic lung cancer and idiopathic intracranial hypertension. Boyfriend at the bedside and states that patient is on Q 4 morphine 0.25 mg sublingually and Dilaudid 4 mg p.o. every 4 hours. Boyfriend at the bedside and reports that she has been on hospice diagnosed in July of 2024 at [facility]. Patient reports that she self caths. Pulmonary: Asthma Past Medical History Cervical cancer Metastatic lung cancer Idiopathic intracranial hypertension Sleep apnea Past Surgical History: Hysterectomy, Other (Cystectomy and right arm surgery) Family History: None Smoke: No ALCOHOL: none Drugs: None Lives: with Family Domestic Violence: Neg Review of Systems Constitutional: Yes: Other (Syncope); No: Fever, Chills, Sweats, Weakness, Malaise Eyes: No: Pain, Vision change, Conjunctivae inflammation, Eyelid inflammation, Other, Redness ENT: No: Ear pain, Ear discharge, Nose pain, Nose discharge, Nose congestion, Mouth pain, Mouth swelling, Throat pain, Throat swelling, Other Respiratory: No: Cough, Dry, Shortness of breath, SOB with excertion, Wheezing, Hemoptysis, Pleuritic Pain, Sputum, Wheezing, Other Cardiovascular: No: Chest Pain, Palpitations, Orthopnea, Paroxysmal Noc. Dyspnea, Edema, Lt Headedness, Other Gastrointestinal: No: Nausea, Vomiting, Abdominal Pain, Diarrhea, Constipation, Melena, Hematochezia, Other Genitourinary: No Dysuria, No Frequency, No Incontinence, No Hematuria, No Retention, No Other Musculoskeletal: No: other, neck pain, shoulder pain, arm pain, back pain, hand pain, leg pain, foot pain Skin: No: Rash, Lesions, Jaundice, Bruising, Other Neurological: No: Weakness, Numbness, Incoordination, Change in speech, Confusion, Seizures, Other Allergies: Coded Allergies: Pseudoephedrine (Verified Allergy, Unknown, 06/19/24) Medications Current Medications Medications Dose Ordered Sig/Cathy Route Start Time Stop Time Status Last Admin Dose Admin Norepinephrine Bitartrate 250 ml @ 3.75 mls/hr Q24H IV 10/04/24 10:15 Piperacillin Sod/ Tazobactam Sod 100 ml @ 25 mls/hr Q8H IV 10/04/24 20:00 Vancomycin HCl 250 ml @ 250 mls/hr Q1H IV 10/04/24 12:30 10/04/24 14:29 Vancomycin HCl 0 ml @ 0 mls/hr UD IV 10/04/24 11:45 Vancomycin HCl 250 ml @ 250 mls/hr Q12H IV 10/05/24 01:00 UNV Vancomycin HCl 0 ml @ 0 mls/hr UD IV 10/04/24 13:30 UNV Piperacillin Sod/ Tazobactam Sod 100 ml @ 25 mls/hr Q8HR IV 10/04/24 14:00 UNV Acetaminophen/ Hydrocodone Bitart 1 tab Q4HP PRN PO 10/04/24 13:30 UNV Ondansetron HCl 4 mg Q4HP PRN IV 10/04/24 13:30 UNV Acetaminophen 650 mg Q6HP PRN PO 10/04/24 13:30 UNV Morphine Sulfate 2 mg Q4HPRN PRN IV 10/04/24 13:30 UNV Exam Vital Signs Vital Signs Date Time Temp Pulse Resp B/P (MAP) Pulse Ox O2 Delivery O2 Flow Rate FiO2 10/04/24 10:20 130 24 100/61 (74) 93 10/04/24 09:43 97.6 General Appearance: Alert, Oriented X3, Cooperative, No acute distress HEENT: Atraumatic, PERRLA, EOMI, Mucous membr. moist/pink Respiratory: Normal air movement Cardiovascular: Normal S1, Normal S2 Abdominal: Soft Extremities: No clubbing, No cyanosis Skin: No significant lesion Neuro: Normal tone, Sensation intact Psych/Mental Status: Mental status NL Labs/Xrays Labs Test 10/04/24 11:19 10/04/24 10:15 Range/Units Lactic Acid Level 3.8 *H 0.4-2.0 mmol/L Troponin I High Sensitivity < 3 L </=34 ng/L White Blood Count 21.7 H 4.4-10.8 10^3/uL Red Blood Count 3.53 L 4.0-5.20 10^6/uL Hemoglobin 8.9 L 12.2-16.2 g/dL Hematocrit 28.5 L 36.0-46.0 % Mean Corpuscular Volume 80.7 80.0-100.0 fL Mean Corpuscular Hemoglobin 25.1 L 28.0-32.0 pg Mean Corpuscular Hemoglobin Concent 31.1 L 32.0-36.0 g/dL Red Cell Distribution Width 23.0 H 11.8-14.3 % Platelet Count 223 140-450 10^3/uL Mean Platelet Volume 9.0 6.9-10.8 fL Neutrophils (%) (Auto) 89.4 H 37.0-80.0 % Lymphocytes (%) (Auto) 4.1 L 10.0-50.0 % Monocytes (%) (Auto) 5.1 0.0-12.0 % Eosinophils (%) (Auto) 0.2 0.0-7.0 % Basophils (%) (Auto) 1.2 0.0-2.0 % Neutrophils # (Auto) 19.4 H 1.6-8.6 10 ^3/uL Lymphocytes # (Auto) 0.9 0.4-5.4 10 ^3/uL Monocytes # (Auto) 1.1 0-1.3 10 ^3/uL Eosinophils # (Auto) 0.1 0-0.8 10 ^3/uL Basophils # (Auto) 0.3 H 0-0.2 10 ^3/uL Nucleated Red Blood Cells 0.0 % Prothrombin Time 17.1 H 9.3-11.8 sec Prothrombin Time INR 1.70 H 0.9-1.15 Activated Partial Thromboplast Time 39.0 H 24.5-34.5 SEC Fibrinogen 439 H 177-375 mg/dL D-Dimer, Quantitative 4.72 H 0.0-0.49 mg/L FEU Sodium Level 125 L 136-145 mmol/L Potassium Level 5.0 3.5-5.1 mmol/L Chloride Level 93 L 98-107 mmol/L Carbon Dioxide Level 22 20-31 mmol/L Anion Gap 10 5-15 Blood Urea Nitrogen 22 9-23 mg/dL Creatinine 0.64 0.550-1.02 mg/dL Glomerular Filtration Rate Calc 117 >90 mL/min BUN/Creatinine Ratio 34.4 H 10.0-20.0 Serum Glucose 76 74-106 mg/dL Calcium Level 9.4 8.7-10.4 mg/dL Total Bilirubin 1.4 H 0.2-1.0 mg/dL Aspartate Amino Transferase (AST) 187 H 13-40 U/L Alanine Aminotransferase (ALT) 49 H 7-40 U/L Alkaline Phosphatase 426 H 46-116 U/L Creatine Kinase 127 34-145 U/L Total Protein 5.0 L 5.7-8.2 g/dL Albumin 2.4 L 3.2-4.8 g/dL CT ABDOMEN AND PELVIS WITHOUT CONTRAST CLINICAL HISTORY: abd pain TECHNIQUE: Multiple contiguous axial images of the abdomen and pelvis without intravenous contrast. The images were reformatted degenerate coronal and sagittal reconstructions. All CT scans at this medical facility are performed using dose modulation techniques as appropriate to a performed exam including the following:Automated exposure control was utilized; adjustment of the MA and/or KV according to patient size; and use of iterative reconstruction technique. Radiation Dose Information: CT Dose: CTDI volume is 20 mGy. Dose-length product is 1201 mGy*cm Comparison: CT CT AB PEL WO CON-NO ORAL OR IV on DOS: 09/16/24, CT CT AB PEL WO CON-NO ORAL OR IV on DOS: 05/28/24 FINDINGS: Evaluation of the abdomen and pelvis is limited without intravenous contrast. Redemonstrated are postsurgical changes related to cystectomy with ileal conduit and right lower quadrant ileostomy. There is again mesenteric fat stranding and thickening in the right lower quadrant abdomen and pelvis with multiple scattered ill-defined nodularities. There is some free fluid in the pelvis. The liver is again enlarged and appears heterogeneous with multiple scattered poorly defined hypodense areas. The gallbladder, pancreas, kidneys, adrenal glands, and spleen appear within normal limits. There is now gexnl-sl-arpezids amount of ascites. There is no free intraperitoneal air. The stomach grossly appears unremarkable. The small and large bowel loops demonstrate normal caliber. The abdominal aorta and IVC appear within normal limits. Again seen are subcentimeter pulmonary nodules in the lung bases. There is no acute osseous abnormality. IMPRESSION: 1. Redemonstrated are postsurgical changes related to cystectomy with ileal conduit and right lower quadrant ileostomy. 2. There is again mesenteric fat stranding and thickening in the right lower quadrant abdomen and pelvis with multiple scattered ill-defined nodularities suspicious for metastatic lymph nodes. 3. Enlarged and heterogeneous liver with multiple scattered poorly defined hypodense areas. Metastatic lesions are not excluded. 4. Subcentimeter pulmonary nodules in the lung bases. Pulmonary metastasis not excluded. 5. Euxvs-zq-sbwdscqu amount of ascites. EXAM: XY CHEST PORTABLE Indication: sob Technique: Single frontal view of the chest was obtained Comparison: XY CHEST XRAY 1 VIEW on DOS: 09/23/24, XY CHEST PORTABLE on DOS: 09/23/24, XY CHEST PORTABLE on DOS: 09/16/24, RHUM on DOS: 07/28/22 FINDINGS: Lines and Tubes: None Lungs: Bibasilar opacities. Pleura: No effusion. No pneumothorax. Cardiomediastinal contours: Cardiomegaly. Bones: No acute osseous abnormality. IMPRESSION: Cardiomegaly with bibasilar opacities. Assessment/Plan Assessment/Plan Assessment/Plan: Syncope Acute encephalopathy Leukocytosis probable sepsis Small to moderate ascites Lactic acidosis Tachycardia Hyponatremia Hyperbilirubinemia Transaminitis Bilateral lower extremity edema Cardiomegaly with bibasilar opacities Labs IV antibiotics-vancomycin +Zosyn Vasopressor p.r.n. BNP NS 1.5 L given ED CK Troponin negative x2 CT abdomen and pelvis Respiratory culture Blood culture Right [place] CK-MB Chest x-ray UA Elevated D-dimer PT/PTT EKG Ultrasound abdomen ? IR for paracentesis consider pending ultrasound abdomen results Multiple scattered ill-defined nodularity suspicious for metastatic lymph nodes Subcentimeter pulmonary nodules Patient currently on hospice History of metastatic lung cancer History of idiopathic intracranial hypertension History of cervical cancer Patient currently on hospice FEN/PPX Diet Hep-Lock DVT prophylaxis -Lovenox PUD prophylaxis not indicated no history of GERD or GI bleed Admit to med surg Home Medications reconciled Discussed plan of care with patient, boyfriend and nurse Plan discussed with: Patient, Other My Orders Orders - SVITLANA AMBROSIO DIRECTOR OF PERIOPERATIVE SERVICES Procedure Category Date Status Time Vancomycin Per PHA 10/04/24 Logged Pharmacy 13:30 Piperacillin-Tazob PHA 10/04/24 Logged 3.375gm (Zosyn 3.375g 14:00 B-Type Natriuretic LAB 10/04/24 In Process Peptide 13:20 Admit ADMIT 10/04/24 Transmitted 13:20 Allergies CHRISTEN 10/04/24 In Process 13:20 Hydrocodone-Acet PHA 10/04/24 Logged 5/325mg Tab ([place] 13:30 Ondansetron Hcl PHA 10/04/24 Logged (Zofran) 13:30 Complete Blood Count LAB 10/05/24 Verified 04:00 Comprehensive LAB 10/05/24 Verified Metabolic Panel 04:00 Cardiac DIET 10/04/24 Transmitted Diet-2gna,Lofat,Lochol Lunch Acetaminophen Tablet PHA 10/04/24 Logged (Tylenol Tablet) 13:30 Morphine Sulfate PHA 10/04/24 Logged Injection 13:30 Date of Service: Oct 04, 2024 Billing Provider: SVITLANA AMBROSIO Common Visit Codes: [id number] INP/OBS CARE (HIGH) SVITLANA AMBROSIO Oct 04, 2024 13:54
[2024-10-04] MEDS ORDERED: PIPERACILLIN-TAZOB 3.375GM 100 ML IV SCH (14:00)
[2024-10-04] MEDS: VANCOMYCIN 1GM/250ML KIT 250 ML IV SCH (16:13)
--- NOTE | 2024-10-04 17:03 | DVH ---
ULTRASOUND ABDOMEN LIMITED INDICATION: ascites TECHNIQUE: Ultrasound of the 4 quadrants of the abdominal cavity. COMPARISON: US LIVER on DOS: 09/26/24 FINDINGS: There is small amount of peritoneal ascites, largest pocket in the left lower quadrant abdomen. IMPRESSION: 1. Small amount of ascites. HS:Y
[2024-10-04 17:05] LABS: Urine Bacteria FEW /hpf (None Seen); Urine Blood Negative /uL (Negative); Urine Clarity Clear (Clear); Urine Color Yellow (Yellow); Urine Protein, UAD TRACE (Negative); Urine Specific Gravity 1.015 (1.001-1.035); Urine Squamous Epithelial Cell None Seen /hpf (<5); Urine Urobilinogen Normal (Negative); Urine WBC 10 /HPF (0-5); Urine pH 6.5 (5.0-9.0)
[2024-10-04 17:52] VITALS: O2SAT 95
--- NOTE | 2024-10-04 18:40 | ECG ---
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
[2024-10-04 18:46] VITALS: PULSE 122; RESP 18; O2SAT 98
[2024-10-04 20:00] VITALS: BP 102/63; PULSE 122; RESP 18; TEMP 98.6; O2SAT 98
[2024-10-04] MEDS: PIPERACILLIN-TAZOB 3.375GM 100 ML IV SCH (20:00)
[2024-10-04] MEDS ORDERED: PIPERACILLIN-TAZO 4.5GM 100 ML IV SCH (20:00)
[2024-10-04] MEDS: MORPHINE SULFATE INJ 2 MG/ml SYRG IV PRN (20:40)
[2024-10-04] MEDS ORDERED: VANCOMYCIN 1GM/250ML KIT 200 ML IV SCH (22:00)
[2024-10-04] MEDS ORDERED: LORazepam 2MG/ML-1ML VIAL IV PRN (22:00)
[2024-10-04] MEDS: HYDROmorphone HCL 2 MG/ML VL/or syr IV PRN (22:41)
[2024-10-05 00:58] VITALS: BP 104/63; PULSE 118; RESP 19; TEMP 96.6; O2SAT 98
[2024-10-05] MEDS ORDERED: VANCOMYCIN 1GM/250ML KIT 250 ML IV SCH (01:00)
[2024-10-05 04:58] VITALS: BP 83/51; PULSE 126; RESP 18; TEMP 98; O2SAT 98
[2024-10-05 07:44] LABS: Basophils # (auto) 0.1 10 ^3/uL (0-0.2); Basophils % (auto) 0.6 % (0.0-2.0); Eosinophils # (auto) 0.1 10 ^3/uL (0-0.8); Eosinophils % (auto) 0.4 % (0.0-7.0); Hematocrit 30.5 % (36.0-46.0); Hemoglobin 9.5 g/dL (12.2-16.2); Lymphocytes # (auto) 0.9 10 ^3/uL (0.4-5.4); Lymphocytes % (auto) 4.2 % (10.0-50.0); Mean Corpuscular Hemoglobin 24.9 pg (28.0-32.0); Mean Corpuscular Hgb Conc. 31.1 g/dL (32.0-36.0); Mean Corpuscular Volume 80.1 fL (80.0-100.0); Monocytes # (auto) 1.1 10 ^3/uL (0-1.3); Monocytes % (auto) 5.4 % (0.0-12.0); Neutrophils # (auto) 18.2 10 ^3/uL (1.6-8.6); Neutrophils % (auto) 89.4 % (37.0-80.0); Platelet Count (auto) 232 10^3/uL (140-450); Red Blood Cells 3.81 10^6/uL (4.0-5.20); Red Cell Distribution Width 23.4 % (11.8-14.3); White Blood Cell 20.3 10^3/uL (4.4-10.8)
[2024-10-05 07:48] LABS: BUN/Creatinine Ratio 36.9 (10.0-20.0); Glucose 98 mg/dL (74-106)
[2024-10-05 07:53] LABS: Alanine Aminotransferase 59 U/L (7-40); Blood Urea Nitrogen 24 mg/dL (9-23)
[2024-10-05 08:23] LABS: Albumin 2.6 g/dL (3.2-4.8); Alkaline Phosphatase 501 U/L (46-116); Anion Gap 10 (5-15); Aspartate Aminotransferase 212 U/L (13-40); Calcium 9.8 mg/dL (8.7-10.4); Carbon Dioxide 21 mmol/L (20-31); Chloride 92 mmol/L (98-107); Potassium 5.1 mmol/L (3.5-5.1); Sodium 123 mmol/L (136-145); Total Protein 5.4 g/dL (5.7-8.2)
[2024-10-05 08:29] LABS: Bilirubin, Total 1.5 mg/dL (0.2-1.0)
[2024-10-05 09:00] VITALS: BP 82/61; PULSE 120; RESP 18; TEMP 98.6; O2SAT 98
--- NOTE | 2024-10-05 11:02 | DVHDS2 ---
Discharge Summary Date of Admission Oct 04, 2024 at 13:20 Date of Discharge: Oct 05, 2024 Labs/Diagnostic Data: Laboratory Results Test 10/05/24 06:15 10/04/24 15:47 10/04/24 13:34 10/04/24 10:15 White Blood Count 20.3 10^3/uL (4.4-10.8) Red Blood Count 3.81 10^6/uL (4.0-5.20) Hemoglobin 9.5 g/dL (12.2-16.2) Hematocrit 30.5 % (36.0-46.0) Mean Corpuscular Volume 80.1 fL (80.0-100.0) Mean Corpuscular Hemoglobin 24.9 pg (28.0-32.0) Mean Corpuscular Hemoglobin Concent 31.1 g/dL (32.0-36.0) Red Cell Distribution Width 23.4 % (11.8-14.3) Platelet Count 232 10^3/uL (140-450) Mean Platelet Volume 9.0 fL (6.9-10.8) Neutrophils (%) (Auto) 89.4 % (37.0-80.0) Lymphocytes (%) (Auto) 4.2 % (10.0-50.0) Monocytes (%) (Auto) 5.4 % (0.0-12.0) Eosinophils (%) (Auto) 0.4 % (0.0-7.0) Basophils (%) (Auto) 0.6 % (0.0-2.0) Neutrophils # (Auto) 18.2 10 ^3/uL (1.6-8.6) Lymphocytes # (Auto) 0.9 10 ^3/uL (0.4-5.4) Monocytes # (Auto) 1.1 10 ^3/uL (0-1.3) Eosinophils # (Auto) 0.1 10 ^3/uL (0-0.8) Basophils # (Auto) 0.1 10 ^3/uL (0-0.2) Nucleated Red Blood Cells 0.0 % Sodium Level 123 mmol/L (136-145) Potassium Level 5.1 mmol/L (3.5-5.1) Chloride Level 92 mmol/L (98-107) Carbon Dioxide Level 21 mmol/L (20-31) Anion Gap 10 (5-15) Blood Urea Nitrogen 24 mg/dL (9-23) Creatinine 0.65 mg/dL (0.550-1.02) Glomerular Filtration Rate Calc 116 mL/min (>90) BUN/Creatinine Ratio 36.9 (10.0-20.0) Serum Glucose 98 mg/dL (74-106) Calcium Level 9.8 mg/dL (8.7-10.4) Total Bilirubin 1.5 mg/dL (0.2-1.0) Aspartate Amino Transferase (AST) 212 U/L (13-40) Alanine Aminotransferase (ALT) 59 U/L (7-40) Alkaline Phosphatase 501 U/L (46-116) Total Protein 5.4 g/dL (5.7-8.2) Albumin 2.6 g/dL (3.2-4.8) Random Vancomycin Level 7.6 ug/mL (5-10) Urine Color Yellow (Yellow) Urine Clarity Clear (Clear) Urine pH 6.5 (5.0-9.0) Urine Specific [place] 1.015 (1.001-1.035) Urine Protein Trace (Negative) Urine Ketones Trace (Negative) Urine Blood Negative /uL (Negative) Urine Nitrite Negative (Negative) Urine Bilirubin Negative (Negative) Urine Urobilinogen Normal mg/dL (Negative) Urine Leukocyte Esterase Negative /uL (Negative) Urine RBC 1 /hpf (0 - 4) Urine Microscopic WBC 10 /HPF (0-5) Urine Squamous Epithelial Cells None seen /hpf (<5) Urine Bacteria Few /hpf (None Seen) Urine Glucose Normal mg/dL (Normal) Lactic Acid Level 3.1 mmol/L (0.4-2.0) Troponin I High Sensitivity < 3 ng/L (</=34) Prothrombin Time 17.1 sec (9.3-11.8) Prothrombin Time INR 1.70 (0.9-1.15) Activated Partial Thromboplast Time 39.0 SEC (24.5-34.5) Fibrinogen 439 mg/dL (177-375) D-Dimer, Quantitative 4.72 mg/L FEU (0.0-0.49) Creatine Kinase 127 U/L (34-145) B-Type Natriuretic Peptide 53.24 pg/mL (0-100) Other Laboratory Tests 10/05/24 06:15 Brief Hx & Hospital Course: Discharge diagnoses: Metastatic cervical cancer to the lung and liver Asthma Sleep apnea Obesity Acute metabolic encephalopathy Ascites Lactic acidosis Hyponatremia Transaminitis Leukocytosis possibly due to sepsis Sepsis most likely due to underlying pneumonia Pneumonia Gram-negative versus positive Cardiomegaly Bibasilar opacities of the lungs due to metastatic lung cancer and possibly underlying pneumonia Hospital course 39-year-old female with a history of cervical cancer with Mets to the liver and lung who was discharged home on hospice 2 days ago and then she came back yesterday because she was hypotensive and tachycardic with altered level of consciousness and therefore the family called 911. Overnight she basically has been hypotensive with a systolic blood pressure in the 80s, heart rate 110-120 Norepinephrine was ordered but it was never started She was given Zosyn and vancomycin IV This morning she is comfortable, she would like to go home on hospice again I had a lengthy discussion with her father and mother and daughter at the bedside I answered all the questions regarding hospice and care at home They understand that her prognosis is very poor The patient would like to go home today Discharged home on hospice again Comfort measures only Advance directives discussed for 20 minute Condition at Discharge: Poor Final Diagnosis/Problems List Metastatic cervical cancer to the lung and liver Discharge Disposition: Hospice - Home SNF Discharge Will this Physician continue t: No Discharge Instruct/Medications Diet: Regular Activity: No Restrictions, As Tolerated Follow Up/Referral: Hospice at home Medications: Per hospice Discharge Statement: "Patient was advised to return to the ER or call 911 if any headaches, dizziness, shortness of breath, chest pain, abdominal pain, bleeding, fevers, or worsening of medical condition. Patient was counseled about treatment plan, medications, possible side effects, patientverbalized understanding. All questions were answered to the best of my ability. This discharge took greater then 30 minutes in planning, reviewing documentation, counseling the patient, and discussing with other team members." ASSESSMENT ASSESSMENT Assessment Metastatic cervical cancer to the lung and liver Date of Service: Oct 05, 2024 Billing Provider: ANSELMO HOGUE MD Common Visit Codes: 97705-OLE/OBS DISCH DAY >30min Secondary Visit Codes: 97677-IVKJCJBS CARE PLAN 30 MINUTES ANSELMO HOGUE MD Oct 05, 2024 11:02
[2024-10-05 13:00] VITALS: BP 94/59; PULSE 126; RESP 18; TEMP 97.6; O2SAT 97
[2024-10-05] MEDS: HYDROcodone-ACET 5/325MG TAB PO ONE (15:05)
[2024-10-05] MEDS ORDERED: VANCOMYCIN 750MG KIT 100 ML IV SCH (17:00)
== END 2024-10-05 15:29 | disposition hospice, home (50) | DRG 720 ==
LOC: ER 09:31 → EDBD 09:31 → OVERFLOW 13:20 → EAST 18:47
DX: A41.50 Gram-negative sepsis, unspecified (principal); J96.01 Acute respiratory failure with hypoxia; G93.41 Metabolic encephalopathy; J15.69 Pneumonia due to other Gram-negative bacteria; R18.8 Other ascites; E87.20 Acidosis, unspecified; J15.9 Unspecified bacterial pneumonia; C76.0 Malignant neoplasm of head, face and neck; E87.1 Hypo-osmolality and hyponatremia; C78.7 Secondary malignant neoplasm of liver and intrahepatic bile duct; E66.9 Obesity, unspecified; E87.8 Other disorders of electrolyte and fluid balance, not elsewhere classified; J45.909 Unspecified asthma, uncomplicated; E80.6 Other disorders of bilirubin metabolism; G47.30 Sleep apnea, unspecified; R74.01 Elevation of levels of liver transaminase levels; Z74.01 Bed confinement status; Z88.8 Allergy status to other drugs, medicaments and biological substances; Z79.899 Other long term (current) drug therapy; Z90.710 Acquired absence of both cervix and uterus; Z79.2 Long term (current) use of antibiotics; Z85.41 Personal history of malignant neoplasm of cervix uteri; Z51.5 Encounter for palliative care; Z68.36 Body mass index [BMI] 36.0-36.9, adult
CPT/HCPCS: 36415; 71045; 74176; 76705; 80053; 80202; 81001; 82550; 83605; 83880; 84484; 85025; 85379; 85384; 85610; 85730; 87040; 93005; 96361; 96365; 96367; G0378; J2543